=== PATIENT | female | born 1945 | race Two or more races ===

== ENCOUNTER 2020-05-09 08:53 | Outpatient (REF) | payer MEDICARE, OTHER, SELFPAY ==
--- NOTE | 2020-05-09 | US_ITS ---
EXAMINATION: US RENAL WITH DOPPLER CLINICAL INFORMATION: CKD with hypertension COMPARISON: None TECHNIQUE: Routine Grayscale imaging of kidneys was performed. In addition, retroperitoneal Doppler of the kidneys and abdominal aorta was performed. FINDINGS: RIGHT KIDNEY: The right kidney measures 10.0 cm x 4.5 x 4.3 cm. There is normal cortical thickness. No echogenic stones, cysts or hydronephrosis seen. There is likely an extrarenal right kidney pelvis. LEFT KIDNEY: The left kidney measures 9.5 x 4.1 x 5.0 cm. A small nondistended pelvis is seen. There is normal cortical thickness. No echogenic stones or hydronephrosis. RIGHT RENAL DOPPLER: The proximal renal artery measures 113 cm/second, mid segment measures 75 cm/second and distal segment measures 1.8 cm/second. The resistive index average is 0.74. Renal aortic ratio (RAR ) cannot be calculated as the peak systolic velocity in the aorta is 134 cm/s above the prescribed value 100 cm/s. LEFT RENAL DOPPLER: The proximal left renal artery velocity measures 135 cm/s, mid segment measures 124 cm/s and distal segment velocity measures 175 cm/s. Average resistive index measures 0.72 and is within normal limits. Renal aortic ratio (RAR ) cannot be calculated. Elevated mid abdominal aortic velocity measuring 134 cm/s. US/US renal doppler IMPRESSION: 1. Normal renal ultrasound. 2. Normal bilateral renal artery velocities and resistive index on Doppler exam. There is no suggestion for renal artery stenosis. 3. There is elevated peak systolic velocity, mid abdominal aorta, measuring 134 cm/s.
== END 2020-05-09 08:54 | disposition home or self-care (01) ==
LOC: HO.US 08:53
PROVIDERS: PCP Family Medicine; Visit Provider Internal Medicine Nephrology
DX: I12.9 Hypertensive chronic kidney disease with stage 1 through stage 4 chronic kidney disease, or unspecified chronic kidney disease (principal); N18.9 Chronic kidney disease, unspecified
CPT/HCPCS: 93975

== ENCOUNTER 2020-06-19 10:26 | Outpatient (REF) | payer MEDICARE, OTHER, SELFPAY ==
[2020-06-19 13:49] LABS: MANUAL DIFF FLAG NO
[2020-06-19 13:56] LABS: Basophils Percent Auto 0.3 % (0-2); Eosinophils Absolute Auto 0.2 X10*3/uL (0.0-0.4); Eosinophils Percent Auto 3.3 % (0-4); Hematocrit 33.1 % (37-47); Imm Gran Abs Auto 0.01 X10*3/uL (0.00-0.03); Imm Gran Pct Auto 0.2 % (0.0-0.4); Lymphocytes Absolute Auto 1.8 X10*3/uL (1.2-4.9); Mean Corpuscular HGB Conc 33.2 g/dl (31.0-35.0); Mean Corpuscular Hemoglobin 30.6 pg (27.0-33.0); Mean Corpuscular Volume 91.9 fL (80-98); Mean Platelet Volume 10.5 fL (9.4-12.3); Monocytes Absolute Auto 0.5 X10*3/uL (0.1-1.2); Monocytes Percent Auto 8.3 % (2-11); Neutrophils Absolute Auto 3.3 X10*3/uL (2.0-8.3); Neutrophils Percent Auto 56.9 % (45-73); Platelet Count 118 X10*3/uL (160-400); Red Cell Distribution Width 12.1 % (11.0-16.0); White Blood Count 5.8 X10*3/uL (4.8-10.8)
[2020-06-19 14:28] LABS: Alanine Aminotransferase 13 U/L (0-31); Albumin Level 4.3 g/dL (3.5-5.0); Alkaline Phosphatase 54 U/L (39-117); Anion Gap 12 (12-20); Aspartate Amino Transferase 22 U/L (5-31); Bilirubin Total 0.5 mg/dL (0.0-1.0); Blood Urea Nitrogen 31 mg/dL (9-16); Calcium 9.5 mg/dL (8.4-10.2); Carbon Dioxide 28 mmol/L (22-29); Chloride 105 mmol/L (96-108); Estimated Glomerular Filt Rate 32; Glucose Random 96 mg/dL (60-115); Potassium 4.6 mmol/l (3.3-5.1); Sodium 140 mmol/L (135-145); Total Protein 6.7 g/dL (6.5-8.0)
== END 2020-06-19 10:27 | disposition home or self-care (01) ==
LOC: HO.WFDLDS 10:26
PROVIDERS: PCP Family Medicine; Visit Provider Family Medicine
DX: D64.9 Anemia, unspecified (principal); N18.9 Chronic kidney disease, unspecified; E78.5 Hyperlipidemia, unspecified
CPT/HCPCS: 36415; 80053; 85025

== ENCOUNTER 2020-09-11 11:29 | Outpatient (REF) | payer MEDICARE, OTHER, SELFPAY ==
[2020-09-11 13:30] LABS: MANUAL DIFF FLAG NO
[2020-09-11 13:32] LABS: Basophils Percent Auto 0.5 % (0-2); Eosinophils Absolute Auto 0.2 X10*3/uL (0.0-0.4); Eosinophils Percent Auto 3.3 % (0-4); Hematocrit 33.4 % (37-47); Imm Gran Abs Auto 0.02 X10*3/uL (0.00-0.03); Imm Gran Pct Auto 0.3 % (0.0-0.4); Lymphocytes Absolute Auto 2.4 X10*3/uL (1.2-4.9); Lymphocytes Percent Auto 39.3 % (20-40); Mean Corpuscular HGB Conc 32.9 g/dl (31.0-35.0); Mean Corpuscular Hemoglobin 30.3 pg (27.0-33.0); Monocytes Absolute Auto 0.5 X10*3/uL (0.1-1.2); Monocytes Percent Auto 8.5 % (2-11); Neutrophils Absolute Auto 2.9 X10*3/uL (2.0-8.3); Neutrophils Percent Auto 48.1 % (45-73); Platelet Count 133 X10*3/uL (160-400); Red Blood Count 3.63 X10*6/uL (4.20-5.50); Red Cell Distribution Width 12.2 % (11.0-16.0)
[2020-09-11 13:43] LABS: Glucose Urine UA NEG (NEG); Leukocyte Esterase Urine TRACE (NEG); Nitrite Urine NEG (NEG); Specific Gravity - Urine 1.025 (1.005-1.025); UACC Culture Trigger YES; Urine Blood NEG (NEG); Urine Ketones NEG (NEG); Urine Protein NEG (NEG-TRACE)
[2020-09-11 13:45] LABS: Appearance Urine CLEAR; Color Urine YELLOW
[2020-09-11 13:49] LABS: Renal w Reflex-LAB USE ONLY Order Verified
[2020-09-11 13:57] LABS: Bacteria Urine TRACE /LPF; RBC Urine 0-2 /HPF (0); Squamous Epithelial Cell Urine TRACE /LPF; UACC CULT YES
[2020-09-11 14:12] LABS: Anion Gap 13 (12-20); Blood Urea Nitrogen 35 mg/dL (9-16); Calcium 9.7 mg/dL (8.4-10.2); Carbon Dioxide 28 mmol/L (22-29); Chloride 105 mmol/L (96-108); Estimated Glomerular Filt Rate 28; Phosphorus 3.7 mg/dL (2.7-4.5); Potassium 4.6 mmol/L (3.3-5.1); Sodium 141 mmol/L (135-145)
[2020-09-11 14:31] LABS: Creatinine Urine 166.34 mg/dL; Microalbum/Creatinine Ratio Ur 6.6 ug/mg cr
[2020-09-11 14:38] LABS: Vitamin D 25-OH Total 89.8 ng/mL (>30)
[2020-09-11 14:55] LABS: Renal w Reflex Lab Use Only Order verified
[2020-09-12 13:36] LABS: IgA 99 mg/dL (70-320); IgG 907 mg/dL (600-1540); IgM 28 mg/dL (50-300)
[2020-09-12 16:27] LABS: Calcium (PTHI) 10.2 mg/dL (8.6-10.4); PTHI 24 pg/mL (14-64)
== END 2020-09-11 11:30 | disposition home or self-care (01) ==
LOC: HO.WFDLDS 11:29
PROVIDERS: Visit Provider Internal Medicine Nephrology
DX: N18.9 Chronic kidney disease, unspecified (principal)
CPT/HCPCS: 36415; 80051; 81001; 82043; 82306; 82310; 82565; 82784; 83970; 84100; 84520; 85025; 86334; 87086

== ENCOUNTER 2021-01-02 11:23 | Outpatient (REF) | payer MEDICARE, OTHER, SELFPAY ==
[2021-01-02 14:40] LABS: Anion Gap 11 (12-20); Blood Urea Nitrogen 31 mg/dL (9-16); Calcium 9.7 mg/dL (8.4-10.2); Carbon Dioxide 28 mmol/L (22-29); Chloride 107 mmol/L (96-108); Estimated Glomerular Filt Rate 34; Potassium 4.2 mmol/L (3.3-5.1); Sodium 142 mmol/L (135-145)
[2021-01-02 14:46] LABS: Renal w Reflex Lab Use Only Order verified
== END 2021-01-02 11:24 | disposition home or self-care (01) ==
LOC: HO.WFDLDS 11:23
PROVIDERS: PCP Family Medicine; Visit Provider Internal Medicine Nephrology
DX: I12.9 Hypertensive chronic kidney disease with stage 1 through stage 4 chronic kidney disease, or unspecified chronic kidney disease (principal); N18.31 Chronic kidney disease, stage 3a
CPT/HCPCS: 36415; 80051; 82310; 82565; 84520

== ENCOUNTER 2021-01-16 09:21 | Outpatient (REF) | payer MEDICARE, OTHER, SELFPAY ==
[2021-01-16 11:08] LABS: Estimated Average Glucose 111 mg/dL; Hemoglobin A1c % 5.5 %
[2021-01-16 11:39] LABS: Alanine Aminotransferase 9 U/L (0-31); Albumin Level 4.4 g/dL (3.5-5.0); Alkaline Phosphatase 65 U/L (39-117); Anion Gap 12 (12-20); Aspartate Amino Transferase 19 U/L (5-31); Bilirubin Total 0.9 mg/dL (0.0-1.0); Blood Urea Nitrogen 31 mg/dL (9-16); Calcium 9.9 mg/dL (8.4-10.2); Carbon Dioxide 26 mmol/L (22-29); Chloride 107 mmol/L (96-108); Cholesterol 132 mg/dL; Estimated Glomerular Filt Rate 33; Glucose Fasting 102 mg/dL (60-99); HDL Cholesterol 70 mg/dL; LDL Cholesterol Calculated 53 mg/dl; Potassium 4.3 mmol/L (3.3-5.1); Sodium 141 mmol/L (135-145); Total Protein 6.7 g/dL (6.5-8.0); Triglycerides 46 mg/dL
== END 2021-01-16 09:22 | disposition home or self-care (01) ==
LOC: HO.WFDLDS 09:21
PROVIDERS: PCP Family Medicine; Visit Provider Family Medicine
DX: Z00.00 Encounter for general adult medical examination without abnormal findings (principal); E78.5 Hyperlipidemia, unspecified; R73.01 Impaired fasting glucose; N18.9 Chronic kidney disease, unspecified
CPT/HCPCS: 36415; 80053; 80061; 83036

== ENCOUNTER 2021-05-06 11:37 | Outpatient (REF) | payer MEDICARE, OTHER, SELFPAY ==
[2021-05-06 14:32] LABS: Anion Gap 13 (12-20); Blood Urea Nitrogen 28 mg/dL (9-16); Calcium 9.7 mg/dL (8.4-10.2); Carbon Dioxide 28 mmol/L (22-29); Chloride 104 mmol/L (96-108); Estimated Glomerular Filt Rate 31; Glucose Random 93 mg/dL (60-115); Phosphorus 3.4 mg/dL (2.7-4.5); Potassium 4.1 mmol/L (3.3-5.1); Sodium 141 mmol/L (135-145)
== END 2021-05-06 11:38 | disposition home or self-care (01) ==
LOC: HO.WFDLDS 11:37
PROVIDERS: PCP Family Medicine; Visit Provider Internal Medicine Nephrology
DX: I12.9 Hypertensive chronic kidney disease with stage 1 through stage 4 chronic kidney disease, or unspecified chronic kidney disease (principal); N18.31 Chronic kidney disease, stage 3a
CPT/HCPCS: 36415; 80051; 82310; 82550; 82565; 82947; 84100; 84520

== ENCOUNTER 2021-09-17 09:41 | Outpatient (REF) | payer MEDICARE, OTHER, SELFPAY ==
[2021-09-17 11:08] LABS: MANUAL DIFF FLAG NO
[2021-09-17 11:39] LABS: Basophils Percent Auto 0.6 % (0-2); Eosinophils Absolute Auto 0.2 X10*3/uL (0.0-0.4); Eosinophils Percent Auto 3.2 % (0-4); Hematocrit 34.2 % (37.0-47.0); Hemoglobin 11.1 g/dl (12.0-16.0); Imm Gran Abs Auto 0.02 X10*3/uL (0.00-0.03); Imm Gran Pct Auto 0.4 % (0.0-0.4); Lymphocytes Absolute Auto 1.6 X10*3/uL (1.2-4.9); Lymphocytes Percent Auto 29.5 % (20-40); Mean Corpuscular HGB Conc 32.5 g/dl (31.0-35.0); Mean Corpuscular Hemoglobin 29.8 pg (27.0-33.0); Mean Corpuscular Volume 91.9 fL (80.0-98.0); Mean Platelet Volume 10.4 fL (9.4-12.3); Monocytes Absolute Auto 0.5 X10*3/uL (0.1-1.2); Monocytes Percent Auto 8.8 % (2-11); Neutrophils Absolute Auto 3.1 x10*3/uL (2.0-8.3); Neutrophils Percent Auto 57.5 % (45-73); Platelet Count 112 X10*3/uL (160-400); Red Blood Count 3.72 X10*6/uL (4.20-5.50); Red Cell Distribution Width 12.5 % (11.0-16.0); White Blood Count 5.3 X10*3/uL (4.8-10.8)
[2021-09-17 11:58] LABS: Alanine Aminotransferase 20 U/L (0-31); Albumin Level 4.5 g/dL (3.5-5.0); Alkaline Phosphatase 62 U/L (39-117); Anion Gap 13 (12-20); Aspartate Amino Transferase 26 U/L (5-31); Bilirubin Total 0.8 mg/dL (0.0-1.0); Blood Urea Nitrogen 28 mg/dL (9-16); Calcium 10.3 mg/dL (8.4-10.2); Carbon Dioxide 27 mmol/L (22-29); Chloride 107 mmol/L (96-108); Cholesterol 140 mg/dL; Estimated Glomerular Filt Rate 33; Glucose Random 100 mg/dL (60-115); HDL Cholesterol 67 mg/dL; LDL Cholesterol Calculated 62 mg/dl; Potassium 4.3 mmol/L (3.3-5.1); Sodium 143 mmol/L (135-145); Total Protein 6.9 g/dL (6.5-8.0); Triglycerides 55 mg/dL
[2021-09-17 12:10] LABS: Estimated Average Glucose 111 mg/dL; Hemoglobin A1c % 5.5 %
[2021-09-18 16:55] LABS: CRP High Sensitivity 0.7 mg/L
== END 2021-09-17 09:42 | disposition home or self-care (01) ==
LOC: HO.WFDLDS 09:41
PROVIDERS: Visit Provider Family Medicine
DX: Z00.00 Encounter for general adult medical examination without abnormal findings (principal); R73.01 Impaired fasting glucose; N18.9 Chronic kidney disease, unspecified; D64.9 Anemia, unspecified; I25.10 Atherosclerotic heart disease of native coronary artery without angina pectoris
CPT/HCPCS: 36415; 80053; 80061; 83036; 84443; 85025; 86141

== ENCOUNTER 2021-12-17 11:21 | Outpatient (REF) | payer MEDICARE, OTHER, SELFPAY ==
[2021-12-17 13:31] LABS: Anion Gap 12 (12-20); Blood Urea Nitrogen 32 mg/dL (9-16); Calcium 9.2 mg/dL (8.4-10.2); Carbon Dioxide 24 mmol/L (22-29); Chloride 107 mmol/L (96-108); Estimated Glomerular Filt Rate 32; Potassium 4.3 mmol/L (3.3-5.1); Sodium 139 mmol/L (135-145)
[2021-12-17 13:40] LABS: Renal w Reflex Lab Use Only Order verified
== END 2021-12-17 11:22 | disposition home or self-care (01) ==
LOC: HO.WFDLDS 11:21
PROVIDERS: Visit Provider Internal Medicine Nephrology
DX: I12.9 Hypertensive chronic kidney disease with stage 1 through stage 4 chronic kidney disease, or unspecified chronic kidney disease (principal); N18.31 Chronic kidney disease, stage 3a
CPT/HCPCS: 36415; 80051; 82310; 82565; 84520

== ENCOUNTER 2022-01-21 11:10 | Outpatient (REF) | payer MEDICARE, OTHER, SELFPAY ==
[2022-01-21 14:45] LABS: Alanine Aminotransferase 15 U/L (0-31); Albumin Level 4.4 g/dL (3.5-5.0); Alkaline Phosphatase 75 U/L (39-117); Anion Gap 10 (12-20); Aspartate Amino Transferase 20 U/L (5-31); Bilirubin Total 0.7 mg/dL (0.0-1.0); Blood Urea Nitrogen 28 mg/dL (9-16); Calcium 9.7 mg/dL (8.4-10.2); Carbon Dioxide 26 mmol/L (22-29); Chloride 108 mmol/L (96-108); Estimated Glomerular Filt Rate 33; Glucose Random 97 mg/dL (60-115); Potassium 4.3 mmol/L (3.3-5.1); Sodium 140 mmol/L (135-145); Total Protein 6.6 g/dL (6.5-8.0)
== END 2022-01-21 11:11 | disposition home or self-care (01) ==
LOC: HO.WFDLDS 11:10
PROVIDERS: Visit Provider Family Medicine
DX: N18.9 Chronic kidney disease, unspecified (principal)
CPT/HCPCS: 36415; 80053

== ENCOUNTER 2022-07-17 09:17 | Outpatient (REF) | payer MEDICARE, OTHER, SELFPAY ==
[2022-07-17 12:16] LABS: Anion Gap 13 (12-20); Blood Urea Nitrogen 34 mg/dL (9-16); Calcium 9.5 mg/dL (8.4-10.2); Carbon Dioxide 25 mmol/L (22-29); Chloride 108 mmol/L (96-108); Estimated Glomerular Filt Rate 31; Glucose Random 91 mg/dL (60-115); Potassium 4.2 mmol/L (3.3-5.1); Sodium 142 mmol/L (135-145)
[2022-07-17 12:20] LABS: Creatinine Urine 95.14 mg/dL; Microalbum/Creatinine Ratio Ur 19.9 ug/mg cr
== END 2022-07-17 09:18 | disposition home or self-care (01) ==
LOC: HO.WFDLDS 09:17
PROVIDERS: Visit Provider Family Medicine
DX: Z00.00 Encounter for general adult medical examination without abnormal findings (principal); I12.9 Hypertensive chronic kidney disease with stage 1 through stage 4 chronic kidney disease, or unspecified chronic kidney disease; N18.9 Chronic kidney disease, unspecified
CPT/HCPCS: 36415; 80048; 82043

== ENCOUNTER 2022-08-28 08:57 | Outpatient (REF) | payer MEDICARE, OTHER, SELFPAY ==
[2022-08-28 11:28] LABS: MANUAL DIFF FLAG NO
[2022-08-28 11:51] LABS: Appearance Urine Clear; Color Urine Yellow; Glucose Urine UA Negative (Negative); Leukocyte Esterase Urine Moderate (2+) (Negative); Nitrite Urine Negative (Negative); Specific Gravity - Urine 1.015 (1.005-1.025); UMIC TRIGGER UA YES; Urine Blood Negative (Negative); Urine Ketones Negative (Negative); Urine Protein Negative (Neg-Trace)
[2022-08-28 11:53] LABS: Basophils Percent Auto 0.6 % (0-2); Eosinophils Absolute Auto 0.2 X10*3/uL (0.0-0.4); Imm Gran Abs Auto 0.01 X10*3/uL (0.00-0.03); Imm Gran Pct Auto 0.2 % (0.0-0.4); Red Cell Distribution Width 12.3 % (11.0-16.0)
[2022-08-28 11:58] LABS: Bacteria Urine None Seen (None Seen); Hyaline Casts Urine 0-2 /LPF (0-2); RBC Urine 0-2 /HPF (0-2); Squamous Epithelial Cell Urine 0-2 /HPF (0-2)
[2022-08-28 12:20] LABS: Alanine Aminotransferase 14 U/L (0-31); Albumin Level 4.2 g/dL (3.5-5.0); Alkaline Phosphatase 56 U/L (39-117); Anion Gap 10 (12-20); Aspartate Amino Transferase 23 U/L (5-31); Bilirubin Total 1.2 mg/dL (0.0-1.0); Blood Urea Nitrogen 37 mg/dL (9-16); Calcium 9.3 mg/dL (8.4-10.2); Carbon Dioxide 26 mmol/L (22-29); Chloride 108 mmol/L (96-108); Cholesterol 133 mg/dL; Eosinophils Percent Auto 3.8 % (0-4); Estimated Glomerular Filt Rate 31; Glucose Fasting 94 mg/dL (60-99); HDL Cholesterol 61 mg/dL; Hematocrit 32.6 % (37.0-47.0); Hemoglobin 10.7 g/dl (12.0-16.0); LDL Cholesterol Calculated 60 mg/dl; Lymphocytes Absolute Auto 1.8 X10*3/uL (1.2-4.9); Lymphocytes Percent Auto 36.8 % (20-40); Mean Corpuscular HGB Conc 32.8 g/dl (31.0-35.0); Mean Corpuscular Hemoglobin 30.2 pg (27.0-33.0); Mean Corpuscular Volume 92.1 fL (80.0-98.0); Mean Platelet Volume 9.7 fL (9.4-12.3); Monocytes Absolute Auto 0.4 X10*3/uL (0.1-1.2); Monocytes Percent Auto 8.6 % (2-11); Neutrophils Absolute Auto 2.5 x10*3/uL (2.0-8.3); Potassium 4.2 mmol/L (3.3-5.1); Red Blood Count 3.54 X10*6/uL (4.20-5.50); Sodium 140 mmol/L (135-145); Total Protein 6.2 g/dL (6.5-8.0); Triglycerides 62 mg/dL
[2022-08-28 12:21] LABS: Platelet Count 123 X10*3/uL (160-400)
[2022-08-28 12:44] LABS: TSH reflex Free T4 1.36 uIU/mL (0.32-4.0); Vitamin D 25-OH Total 54.8 ng/mL (>30)
[2022-08-28 12:55] LABS: Creatinine Urine 78.02 mg/dL; Microalbum/Creatinine Ratio Ur 11.5 ug/mg cr
== END 2022-08-28 08:58 | disposition home or self-care (01) ==
LOC: HO.WFDLDS 08:57
PROVIDERS: Absent Provider Internal Medicine Cardiovascular Disease; Visit Provider Family Medicine
DX: Z00.00 Encounter for general adult medical examination without abnormal findings (principal); E55.9 Vitamin D deficiency, unspecified; I10 Essential (primary) hypertension
CPT/HCPCS: 36415; 80053; 80061; 81001; 82043; 82306; 84443; 85025

== ENCOUNTER 2022-10-06 11:39 | Outpatient (REF) | payer MEDICARE, OTHER, SELFPAY ==
--- NOTE | ~2022-10-06 | XR_ITS ---
EXAMINATION: XR CHEST 2 VIEWS CLINICAL INFORMATION: Circulatory system signs and symptoms. COMPARISON: None. TECHNIQUE: Frontal and lateral views of the chest were obtained. FINDINGS: The heart, great vessels, pulmonary vasculature and mediastinum are normal. The lungs show no focal infiltrate, effusion or pneumothorax. There is no acute osseous abnormality. There is mild thoracolumbar spondylosis. XR/XR chest 2V IMPRESSION: No active cardiopulmonary disease.
== END 2022-10-06 11:40 | disposition home or self-care (01) ==
LOC: HO.XRAY 11:39
PROVIDERS: PCP Family Medicine; Visit Provider Family Medicine
DX: R09.89 Other specified symptoms and signs involving the circulatory and respiratory systems (principal); Z87.891 Personal history of nicotine dependence
CPT/HCPCS: 71046

== ENCOUNTER 2022-12-23 11:04 | Outpatient (REF) | payer MEDICARE, OTHER, SELFPAY ==
[2022-12-23 13:46] LABS: MANUAL DIFF FLAG NO
[2022-12-23 13:51] LABS: Basophils Percent Auto 0.6 % (0-2); Eosinophils Absolute Auto 0.2 X10*3/uL (0.0-0.4); Eosinophils Percent Auto 4.1 % (0-4); Hematocrit 33.5 % (37.0-47.0); Imm Gran Abs Auto 0.02 X10*3/uL (0.00-0.03); Imm Gran Pct Auto 0.4 % (0.0-0.4); Lymphocytes Absolute Auto 1.8 X10*3/uL (1.2-4.9); Lymphocytes Percent Auto 33.1 % (20-40); Mean Corpuscular HGB Conc 32.8 g/dl (31.0-35.0); Mean Corpuscular Hemoglobin 31.1 pg (27.0-33.0); Mean Corpuscular Volume 94.6 fL (80.0-98.0); Mean Platelet Volume 10.4 fL (9.4-12.3); Monocytes Absolute Auto 0.5 X10*3/uL (0.1-1.2); Neutrophils Absolute Auto 2.8 x10*3/uL (2.0-8.3); Neutrophils Percent Auto 51.8 % (45-73); Platelet Count 122 X10*3/uL (160-400); Red Blood Count 3.54 X10*6/uL (4.20-5.50); Red Cell Distribution Width 12.4 % (11.0-16.0); White Blood Count 5.4 X10*3/uL (4.8-10.8)
[2022-12-23 14:25] LABS: Anion Gap 13 (12-20); Blood Urea Nitrogen 33 mg/dL (9-16); Calcium 10.1 mg/dL (8.4-10.2); Carbon Dioxide 26 mmol/L (22-29); Chloride 107 mmol/L (96-108); Estimated Glomerular Filt Rate 27; Iron 99 mcg/dL (30-160); Percent Iron Saturation 43 % (15-50); Phosphorus 3.4 mg/dL (2.7-4.5); Potassium 4.4 mmol/L (3.3-5.1); Sodium 142 mmol/L (135-145); Total Iron Binding Capacity 228 mcg/dL (228-428); Unsaturated Iron Binding 129 ug/dL
[2022-12-23 14:32] LABS: Ferritin 242 ng/mL (10-250)
[2022-12-28 11:43] LABS: Prot Elec - Albumin 4.3 g/dL (3.8-4.8); Prot Elec - Alpha1 0.3 g/dL (0.2-0.3); Prot Elec - Alpha2 0.6 g/dL (0.5-0.9); Prot Elec - Beta 1 0.4 g/dL (0.4-0.6); Prot Elec - Beta 2 0.2 g/dL (0.2-0.5); Prot Elec - Gamma 0.8 g/dL (0.8-1.7); Prot Elec - Total Protein 6.6 g/dL (6.1-8.1)
== END 2022-12-23 11:05 | disposition home or self-care (01) ==
LOC: HO.WFDLDS 11:04
PROVIDERS: Absent Provider Internal Medicine Nephrology; Visit Provider Family Medicine
DX: I12.9 Hypertensive chronic kidney disease with stage 1 through stage 4 chronic kidney disease, or unspecified chronic kidney disease (principal); N18.31 Chronic kidney disease, stage 3a; D63.1 Anemia in chronic kidney disease
CPT/HCPCS: 36415; 80051; 82310; 82565; 82728; 83540; 84100; 84165; 84520; 85025

== ENCOUNTER 2023-03-31 11:53 | Outpatient (REF) | payer MEDICARE, OTHER, SELFPAY ==
[2023-03-31 14:42] LABS: MANUAL DIFF FLAG NO
[2023-03-31 15:04] LABS: Basophils Percent Auto 0.6 % (0-2); Eosinophils Absolute Auto 0.2 X10*3/uL (0.0-0.4); Eosinophils Percent Auto 4.4 % (0-4); Imm Gran Abs Auto 0.02 X10*3/uL (0.00-0.03); Imm Gran Pct Auto 0.4 % (0.0-0.4); Immature Retic Fraction 10.2 % (3.0-15.9); Lymphocytes Absolute Auto 1.9 X10*3/uL (1.2-4.9); Lymphocytes Percent Auto 34.4 % (20-40); Mean Corpuscular HGB Conc 32.4 g/dl (31.0-35.0); Mean Corpuscular Hemoglobin 30.9 pg (27.0-33.0); Mean Corpuscular Volume 95.5 fL (80.0-98.0); Mean Platelet Volume 10.3 fL (9.4-12.3); Monocytes Absolute Auto 0.5 X10*3/uL (0.1-1.2); Neutrophils Absolute Auto 2.8 x10*3/uL (2.0-8.3); Neutrophils Percent Auto 51.2 % (45-73); Platelet Count 120 X10*3/uL (160-400); Red Blood Count 3.56 X10*6/uL (4.20-5.50); Red Cell Distribution Width 12.4 % (11.0-16.0); Retic HGB Equivalent 34.6 pg (30.0-35.0); Reticulocyte Percent 1.6 % (0.5-1.8); Reticulocytes Absolute 0.058 X10*6/uL (0.026-0.095); White Blood Count 5.4 X10*3/uL (4.8-10.8)
[2023-03-31 15:19] LABS: Alanine Aminotransferase 16 U/L (0-31); Albumin Level 4.4 g/dL (3.5-5.0); Alkaline Phosphatase 75 U/L (39-117); Anion Gap 13 (12-20); Aspartate Amino Transferase 23 U/L (5-31); Bilirubin Total 0.6 mg/dL (0.0-1.0); Blood Urea Nitrogen 38 mg/dL (9-16); Calcium 9.7 mg/dL (8.4-10.2); Carbon Dioxide 25 mmol/L (22-29); Chloride 108 mmol/L (96-108); Estimated Glomerular Filt Rate 26; Glucose Random 129 mg/dL (60-115); Iron 101 mcg/dL (30-160); Percent Iron Saturation 43 % (15-50); Potassium 4.6 mmol/L (3.3-5.1); Sodium 141 mmol/L (135-145); Total Iron Binding Capacity 234 mcg/dL (228-428); Total Protein 6.9 g/dL (6.5-8.0); Unsaturated Iron Binding 133 ug/dL
[2023-03-31 15:24] LABS: Anion Gap 13 (12-20); Blood Urea Nitrogen 38 mg/dL (9-16); Calcium 9.7 mg/dL (8.4-10.2); Carbon Dioxide 26 mmol/L (22-29); Chloride 108 mmol/L (96-108); Estimated Glomerular Filt Rate 25; Potassium 4.5 mmol/L (3.3-5.1); Sodium 142 mmol/L (135-145)
[2023-03-31 16:01] LABS: Folate 12.1 ng/mL (> or = 4.0); Vitamin B12 729 pg/mL (200-900)
== END 2023-03-31 11:54 | disposition home or self-care (01) ==
LOC: HO.WFDLDS 11:53
PROVIDERS: Internal Medicine Nephrology; Visit Provider Family Medicine
DX: Z00.00 Encounter for general adult medical examination without abnormal findings (principal); I12.9 Hypertensive chronic kidney disease with stage 1 through stage 4 chronic kidney disease, or unspecified chronic kidney disease; N18.31 Chronic kidney disease, stage 3a; D64.9 Anemia, unspecified; E53.8 Deficiency of other specified B group vitamins
CPT/HCPCS: 36415; 80051; 80053; 82310; 82565; 82607; 82746; 83540; 84520; 85025; 85045

== ENCOUNTER 2023-04-15 13:24 | Outpatient (AMB) | payer MEDICARE, OTHER, SELFPAY ==
[2023-04-15 13:37] VITALS: BP 124/64; PULSE 57; RESP 13; TEMP 36.6; O2SAT 97
--- NOTE | 2023-04-15 13:37 | A.OFFPC_ITS ---
Vital Signs 04/15/23 13:37 Height 4 ft 11 in Weight 148 lb 8 oz BMI 30.0 BP 124/64 Blood Pressure Location Rt brachial Position Sitting Respiration 13 Pulse 57 Pulse Source Pulse Oximeter Temp 97.8 F Temp Source Temporal Artery Scan Pulse Oximetry (%) 97 Oxygen Delivery Method Room Air Intake Visit Reasons: Hypertension, CRF, anemia Intake Note: Patient states that she just went and seen her mold filler and drainer and would like to go over how that visit went. Patient would also like to go over her labs. Patient would like a script for triamcinolone acetonide 0.1%. 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 Labs were drawn 03/31/23. Reviewed labs with pt. Ongoing mild anemia. Creatinine level worsened from 1.84 to 1.91. Blood pressure today 124/64. She is on lisinopril 2.5mg, metoprolol 25mg b.i.d. HPI Comments History of Present Illness Details Documentation assistance for Dhiraj Cano MD, was provided by Bijan Mosqueda,?Mixer Crane Operator on 04/15/2023 2:02 PM EST. Mandujano, Dr. Cano, have read, observed, and verified documentation.? [facility] Medical History No pertinent past medical history Surgical History History of breast surgery History of surgical procedure on mouth Social History Housing: House Alcohol intake: current Alcohol type: wine Patient Tobacco Use Status: Former Tobacco user e-Cigarette/Vaping Use: Never Used Second Hand Smoke Exposure: No service: No Current occupational status: retired Current occupational exposures/hazards: No Cognitive needs: No Hearing needs: No Vision needs: No (glasses) Questionnaire Thrive Questionnaire Date Thrive assessed: 07/24/22 ANABELL-7 AMB Questionnaire ANABELL-7 Date ANABELL - 7 assessed: 07/24/22 Source: Developed by Drs. South Johnson, Alisson Fuentes, Yannick Morfin and colleagues, with an educational jef from [employer]. Review of Systems Const Denies chills, Denies fatigue, Denies fever(s), Denies headache(s) and Denies weakness ENT Denies dizziness and Denies headache(s) Card Denies chest pain, Denies lightheadedness, Denies dyspnea and Denies other (Palpitations) Resp Denies cough, Denies dyspnea, Denies wheezing and Denies other ( shortness of breath) Musc Denies numbness and Denies tingling Neuro Denies dizziness, Denies headache(s), Denies numbness, Denies tingling, Denies paresthesias and Denies weakness Psych Denies anxiety and Denies depression Endo Denies fatigue Aller/Immun Denies wheezing Physical exam (Primary Care) Vital Signs: Last Vital Signs Temp 97.8 F 04/15/23 13:37 Pulse 57 04/15/23 13:37 Resp 13 04/15/23 13:37 BP 124/64 04/15/23 13:37 Pulse Ox 97 04/15/23 13:37 Oxygen Delivery Method Room Air 04/15/23 13:37 BMI result Body Mass Index 30.0 Tobacco/Smoking Status: Tobacco use Status Tobacco use date assessed 01/01/23 04/15/23 13:48 Patient Tobacco Use Status Former Tobacco user 04/15/23 13:48 e-Cigarette/Vaping Use Never Used 04/15/23 13:48 Thrive Assessment: Date of Thrive Assessment Date Thrive assessed 07/24/22 04/15/23 13:48 Const General: no acute distress and well developed Nutritional Appearance: well nourished Orientation/consciousness: patient oriented x3 HENMT Head: Yes normocephalic and Yes atraumatic Eyes General: appearance normal, both eyes and all related structures Pupils: Equal, round and reactive pupils present EOM: EOMs intact bilaterally Resp Effort & Inspection: normal respiratory effort Auscultation: clear to auscultation bilaterally Cardio Rate: regular rate Rhythm: regular rhythm Heart sounds: S1 normal heart sound present, S2 normal heart sound present, no gallops, no murmurs and no rubs Neuro General: patient oriented x3 and gait normal Cranial nerves: Yes Equal, round and reactive pupils present Psych Affect: normal affect Assessment and Plan Assessment & Plan (1) Essential hypertension: Code(s): I10 - Essential (primary) hypertension Plan: Blood?pressure?remains?well?controlled.??Goal?is?less?than?130/80 Continue?current?medication?regimen (2) Chronic renal failure: Code(s): N18.9 - Chronic kidney disease, unspecified Plan: Renal?function?has?decreased?slightly?again She?is?on?a?very?small?amount?of?ISMA inhibitor?and?her?mold filler and drainer?is?considering?holding?this Possible?renal?artery?stenosis Follow-up?with?nephrology.??May?need?a?repeat?renal?ultrasound?with?Dopplers Hydrate?well Control?blood?pressure,?blood?sugar,?lipids?and?avoid?NSAIDs. Still?following?closely (3) Mild anemia: Code(s): D64.9 - Anemia, unspecified Plan: Her?iron?and?B12?levels?are?normal.??Sh e?has?a?normocytic?anemia?which?is?quite?stable. This?is?likely?secondary?to?chronic?renal?failure.??She?may?need?Procrit?in?the? future?but?currently?I?do?not?think?that?is?the?case Will?continue?to?monitor?this Medications: Changed From triamcinolone acetonide 0.1% topical To triamcinolone acetonide 0.1% 1 appl topical BID 60 grams 3RF 14 days From gabapentin 1-2 tabs orally daily PRN; 7 days 14 caps 0RF Cluster headache To gabapentin 1-2 tabs orally daily PRN; 30 days 60 caps 2RF Cluster headache Coding Level of Care Code Est Pt Level 4 (87927) Diagnoses Essential hypertension I10 Chronic renal failure N18.9 Mild anemia D64.9
== END 2023-04-15 14:42 | disposition home or self-care (01) ==
PROVIDERS: PCP Family Medicine; Visit Provider Family Medicine
DX: I12.9 Hypertensive chronic kidney disease with stage 1 through stage 4 chronic kidney disease, or unspecified chronic kidney disease (principal); N18.9 Chronic kidney disease, unspecified; D64.9 Anemia, unspecified
CPT/HCPCS: 99214

== ENCOUNTER 2023-06-04 12:08 | Outpatient (REF) | payer MEDICARE, OTHER, SELFPAY ==
[2023-06-04 14:29] LABS: Immature Retic Fraction 8.3 % (3.0-15.9); Retic HGB Equivalent 34.1 pg (30.0-35.0); Reticulocyte Percent 1.6 % (0.5-1.8); Reticulocytes Absolute 0.052 X10*6/uL (0.026-0.095)
== END 2023-06-04 12:09 | disposition home or self-care (01) ==
LOC: HO.WFDLDS 12:08
PROVIDERS: Visit Provider Family Medicine
DX: D64.9 Anemia, unspecified (principal)
CPT/HCPCS: 36415; 85045

== ENCOUNTER 2023-06-08 11:38 | Outpatient (REF) | payer MEDICARE, OTHER, SELFPAY ==
[2023-06-08 15:14] LABS: Anion Gap 13 (12-20); Blood Urea Nitrogen 37 mg/dL (9-16); Carbon Dioxide 24 mmol/L (22-29); Chloride 108 mmol/L (96-108); Estimated Glomerular Filt Rate 27; Potassium 3.8 mmol/L (3.3-5.1); Sodium 141 mmol/L (135-145)
== END 2023-06-08 11:39 | disposition home or self-care (01) ==
LOC: HO.WFDLDS 11:38
PROVIDERS: Visit Provider Internal Medicine Nephrology
DX: N18.30 Chronic kidney disease, stage 3 unspecified (principal)
CPT/HCPCS: 36415; 80051; 82565; 84520

== ENCOUNTER 2023-06-11 11:32 | Outpatient (AMB) | payer MEDICARE, OTHER, SELFPAY ==
[2023-06-11 11:59] VITALS: BP 130/60; PULSE 51; O2SAT 97; BMI 29.6
--- NOTE | 2023-06-11 11:59 | HO.NEPHOV_ITS ---
HPI HPI Comments History of Present Illness Details I had the privilege of seeing eileen in follow-up of her chronic kidney disease. She is known to have coronary artery disease, TIA and hypertension but no congestive heart failure. Recently her serum creatinine has gone up and her ISMA-inhibitor dosage has been adjusted. Her renal ultrasound in the past showed a renal cyst per never had Doppler of renal arteries. She has history of trace blood in the urine and has seen Urology. She denies chest pain, shortness of breath, proximal nocturnal dyspnea, orthopnea, pedal edema or urinary symptoms. She avoids nonsteroidal anti-inflammatory medications. She tries to maintain good hydration and consume a low-sodium diet. There were no new active complaints at the time of this office visit. [facility] Medical History No pertinent past medical history Surgical History History of breast surgery History of surgical procedure on mouth Social History Housing: House Alcohol intake: current Alcohol type: wine Patient Tobacco Use Status: Former Tobacco user e-Cigarette/Vaping Use: Never Used Second Hand Smoke Exposure: No service: No Current occupational status: retired Current occupational exposures/hazards: No Cognitive needs: No Hearing needs: No Vision needs: No (glasses) Vital Signs 06/11/23 11:59 Height 4 ft 11 in Weight 146 lb 8 oz BMI 29.6 BP 130/60 Blood Pressure Location Lt brachial Position Sitting Pulse 51 Pulse Source Pulse Oximeter Pulse Oximetry (%) 97 Oxygen Delivery Method Room Air Physical Exam Vital Signs: Last Vital Signs Pulse 51 06/11/23 11:59 BP 130/60 06/11/23 11:59 Pulse Ox 97 06/11/23 11:59 Oxygen Delivery Method Room Air 06/11/23 11:59 BMI result Body Mass Index 29.6 Const General: comfortable and no acute distress Orientation/consciousness: patient oriented x3 HEENT Head: Yes normocephalic Mouth: Normal oral and palatal mucosa present Eyes EOM: EOMs intact bilaterally Neck Neck: Yes supple Resp Auscultation: clear to auscultation bilaterally Cardio Jugular venous distension: no JVD Rate: regular rate GI Palpation (GI): Soft to palpation Auscultation: normal bowel sounds General: Yes no CVA tenderness Back/Spine/Pelvis Back: no CVA tenderness Skin General skin exam: no rashes or lesions noted Neuro General: patient oriented x3 and moves all extremities Extrem General: Yes no pedal edema Assessment & Plan Assessment & Plan (1) CKD (chronic kidney disease) stage 3, GFR 30-59 ml/min: Code(s): N18.30 - Chronic kidney disease, stage 3 unspecified Qualifiers: Chronic kidney disease stage 3 subtype: stage 3a (GFR 45-59) Qualified Code(s): N18.31 - Chronic kidney disease, stage 3a (2) Essential hypertension: Code(s): I10 - Essential (primary) hypertension Plan Eileen has chronic kidney disease due to vascular disease. 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 Her serum creatinine is marginally better this time after adjustment of her ISMA- inhibitor dosage. Her blood pressure is at goal. She has no orthostasis. She avoids nonsteroidal anti-inflammatories. Her urine output is good. I did not make any medication changes at this visit. I shall consider ordering Doppler of her renal arteries in the future along with renal ultrasound by which we can follow up her cyst as well as the major renal blood vessels. She may be a candidate for FarPymetricsga a Jardiance in the future. Follow-up lab data ordered. Answered all questions. Follow-up given Orders: Orders Ferritin 06/11/23 N18.30 - Chronic kidney disease, stage 3 unspecified Electrolytes 06/11/23 N18.30 - Chronic kidney disease, stage 3 unspecified Creatinine 06/11/23 N18.30 - Chronic kidney disease, stage 3 unspecified Calcium 06/11/23 N18.30 - Chronic kidney disease, stage 3 unspecified IRON PROFILE 06/11/23 N18.30 - Chronic kidney disease, stage 3 unspecified Blood Urea Nitrogen 06/11/23 N18.30 - Chronic kidney disease, stage 3 unspecified Complete Blood Count Auto Diff 06/11/23 N18.30 - Chronic kidney disease, stage 3 unspecified Coding Level of Care Code Est Pt Level 4 (16474) Diagnoses Stage 3a chronic kidney disease N18.31 Chronic kidney disease stage 3 subtype: stage 3a (GFR 45-59) Essential hypertension I10 Results Reviewed Nephrology Results: Hgb 11.0 g/dl (12.0-16.0) L 03/31/23 WBC 5.4 X10*3/uL (4.8-10.8) 03/31/23 Plt Count 120 X10*3/uL (160-400) L 03/31/23 Sodium 141 mmol/L (135-145) 06/08/23 Potassium 3.8 mmol/L (3.3-5.1) 06/08/23 Chloride 108 mmol/L (96-108) 06/08/23 Carbon Dioxide 24 mmol/L (22-29) 06/08/23 BUN 37 mg/dL (9-16) H 06/08/23 Creatinine 1.80 mg/dL (0.5-1.4) H 06/08/23 Calcium 9.7 mg/dL (8.4-10.2) 03/31/23 Phosphorus 3.4 mg/dL (2.7-4.5) 12/23/22 Urine Protein TNP 09/25/22 Urine Creatinine 78.02 mg/dL 08/28/22
== END 2023-06-11 12:41 | disposition home or self-care (01) ==
PROVIDERS: PCP Family Medicine; Visit Provider Internal Medicine Nephrology
DX: N18.31 Chronic kidney disease, stage 3a (principal); I10 Essential (primary) hypertension
CPT/HCPCS: 99214

== ENCOUNTER → 2023-06-11 11:32 | Outpatient (BNVA) | payer MEDICARE, OTHER, SELFPAY | PROVIDERS: PCP Family Medicine; Visit Provider Internal Medicine Nephrology | DX: I12.9 Hypertensive chronic kidney disease with stage 1 through stage 4 chronic kidney disease, or unspecified chronic kidney disease (principal); N18.31 Chronic kidney disease, stage 3a | CPT/HCPCS: 99212 ==

== ENCOUNTER 2023-07-22 12:47 | Outpatient (AMB) | payer MEDICARE, OTHER, SELFPAY ==
--- NOTE | 2023-07-22 12:57 | A.OFFPC_ITS ---
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 Accompanied by: Self / Same As Patient Allergies No Known Allergies Allergy (Verified 07/22/23 13:04) Medication List - Last Reconciled 07/22/23 by Dhiraj Caon MD aspirin 81 mg PO DAILY 90 days atorvastatin 40 mg PO DAILY calcium carbonate (Calcium) 600 mg PO BID coenzyme Q10 100 mg PO DAILY gabapentin 100 mg PO BID PRN 30 days lisinopril 1.25 mg (1/2 x 2.5 mg) PO DAILY 90 days magnesium oxide 400 mg PO DAILY metoprolol tartrate 25 mg PO BID niacin ER 750 mg PO BID omega 4-nul-yzh-fish oil 1,200 (144-216) mg (Fish Oil) 1 cap PO BID polyethylene glycol 3350 (Miralax) 17 grams PO .every other day PRN triamcinolone acetonide 0.1% 1 appl topical BID 14 days Tobacco use date assessed: 07/22/23 Fall risk assessment: No Falls in past year Last assessed Fall Risk: 07/22/23 Dental Screening Dental Screen Date: 07/22/23 Did you have a dental visit in the last 12 months?: Yes Did you have a dental problem in the last 6 months where you did not have access to dental care?: No Was dental information given to patient?: Patient has dentist HPI f/u htn, chronic renal failure & chronic condit. HPI Details 78 y/o female presents to f/u hypertensi on, CRF and chronic conditions. Blood pressure today 126/68. She is on lisinopril 1.25mg, metoprolol 25mg b.i.d. Has seen nephrology. [facility] Medical History No pertinent past medical history Surgical History History of breast surgery History of surgical procedure on mouth Social History Housing: House Alcohol intake: current Alcohol type: wine Patient Tobacco Use Status: Former Tobacco user e-Cigarette/Vaping Use: Never Used Second Hand Smoke Exposure: No service: No Current occupational status: retired Current occupational exposures/hazards: No Cognitive needs: No Hearing needs: No Vision needs: No (glasses) Questionnaire Thrive Questionnaire Date Thrive assessed: 07/24/22 ANABELL-7 AMB Questionnaire ANABELL-7 Date ANABELL - 7 assessed: 07/24/22 Source: Developed by Drs. South Johnson, Alisson Fuentes, Yannick Morfin and colleagues, with an educational jef from [employer]. Review of Systems Const Denies chills, Denies fatigue, Denies fever(s), Denies headache(s) and Denies weakness ENT Denies dizziness and Denies headache(s) Card Denies dyspnea Resp Denies cough, Denies dyspnea, Denies wheezing and Denies other (shortness of breath) Musc Denies numbness and Denies tingling Neuro Denies dizziness, Denies headache(s), Denies numbness, Denies tingling and Denies weakness Psych Denies anxiety and Denies depression Endo Denies fatigue Aller/Immun Denies wheezing Physical exam (Primary Care) Vital Signs: Last Vital Signs Temp 97.8 F 07/22/23 12:59 Pulse 62 07/22/23 12:59 Resp 13 07/22/23 12:59 BP 126/68 07/22/23 12:59 Pulse Ox 99 07/22/23 12:59 Oxygen Delivery Method Room Air 07/22/23 12:59 BMI result Body Mass Index 29.0 Tobacco/Smoking Status: Tobacco use Status Tobacco use date assessed 07/22/23 07/22/23 13:06 Patient Tobacco Use Status Former Tobacco user 07/22/23 13:06 e-Cigarette/Vaping Use Never Used 07/22/23 12:59 Thrive Assessment: Date of Thrive Assessment Date Thrive assessed 07/24/22 07/22/23 12:59 Const General: well developed; No acute distress Nutritional Appearance: well nourished Orientation/consciousness: patient oriented x3 HENMT Head: Yes normocephalic and Yes atraumatic Eyes General: appearance normal, both eyes and all related structures Pupils: Equal, round and reactive pupils present EOM: EOMs intact bilaterally Resp Effort & Inspection: normal respiratory effort Neuro General: patient oriented x3 and gait normal Cranial nerves: Yes Equal, round and reactive pupils present Psych Affect: normal affect Assessment and Plan Assessment & Plan (1) Essential hypertension: Code(s): I10 - Essential (primary) hypertension Plan: Blood?pressure?is?well?controlled.??Goal?is?less?than?130/80 Continue?current?medication?regimen She?is?on?a?small?dose?of?lisinopril. Creatinine?level?has?improved?slightly. (2) Chronic renal failure: Code(s): N18.9 - Chronic kidney disease, unspecified Plan: As?above,?renal?function?is?steady?and?creatinine?level?has?improved?slightly?si nce?decreasing?lisinopril Follow-up?with?nephrology. Nephrology?considering?Jardiance Orders: Orders Comprehensive [place]. Panel Fast Today Z00.00 - Encounter for general adult medical examination without abnormal findings Complete Blood Count Auto Diff Today Z00.00 - Encounter for general adult medical examination without abnormal findings Microalbumin, Random (w Creat) Today I10 - Essential (primary) hypertension UA and rflx microscopic Today Z00.00 - Encounter for general adult medical examination without abnormal findings Lipid Panel Today Z00.00 - Encounter for general adult medical examination without abnormal findings Prostate Specific Antigen Scr Today Z12.5 - Encounter for screening for malignant neoplasm of prostate TSH reflex Free T4 Today Z00.00 - Encounter for general adult medical examination without abnormal findings Coding Level of Care Code Est Pt Level 3 (65327) Diagnoses Essential hypertension I10 Chronic renal failure N18.9
[2023-07-22 12:59] VITALS: BP 126/68; PULSE 62; RESP 13; TEMP 36.6; O2SAT 99; BMI 29.0
== END 2023-07-22 17:00 ==
PROVIDERS: PCP Family Medicine; Visit Provider Family Medicine
DX: I12.9 Hypertensive chronic kidney disease with stage 1 through stage 4 chronic kidney disease, or unspecified chronic kidney disease (principal); N18.9 Chronic kidney disease, unspecified
CPT/HCPCS: 99213

== ENCOUNTER 2023-09-08 11:51 | Outpatient (REF) | payer MEDICARE, OTHER, SELFPAY ==
[2023-09-08 14:26] LABS: MANUAL DIFF FLAG NO
[2023-09-08 14:33] LABS: Basophils Percent Auto 0.5 % (0-2); Eosinophils Absolute Auto 0.4 X10*3/uL (0.0-0.4); Eosinophils Percent Auto 6.1 % (0-4); Hematocrit 32.4 % (37.0-47.0); Hemoglobin 10.8 g/dl (12.0-16.0); Imm Gran Abs Auto 0.02 X10*3/uL (0.00-0.03); Imm Gran Pct Auto 0.3 % (0.0-0.4); Lymphocytes Absolute Auto 1.8 X10*3/uL (1.2-4.9); Mean Corpuscular HGB Conc 33.3 g/dl (31.0-35.0); Mean Corpuscular Hemoglobin 30.7 pg (27.0-33.0); Mean Platelet Volume 10.1 fL (9.4-12.3); Monocytes Absolute Auto 0.6 X10*3/uL (0.1-1.2); Monocytes Percent Auto 10.2 % (2-11); Neutrophils Absolute Auto 3.1 x10*3/uL (2.0-8.3); Neutrophils Percent Auto 51.9 % (45-73); Red Blood Count 3.52 X10*6/uL (4.20-5.50); Red Cell Distribution Width 12.1 % (11.0-16.0); White Blood Count 5.9 X10*3/uL (4.8-10.8)
[2023-09-08 14:34] LABS: Platelet Count 85 X10*3/uL (160-400)
[2023-09-08 15:14] LABS: Anion Gap 9 (12-20); Blood Urea Nitrogen 31 mg/dL (9-16); Calcium 9.8 mg/dL (8.4-10.2); Carbon Dioxide 27 mmol/L (22-29); Chloride 108 mmol/L (96-108); Estimated Glomerular Filt Rate 27; Iron 80 mcg/dL (30-160); Percent Iron Saturation 38 % (15-50); Potassium 4.2 mmol/L (3.3-5.1); Sodium 140 mmol/L (135-145); Total Iron Binding Capacity 212 mcg/dL (228-428); Unsaturated Iron Binding 132 ug/dL
[2023-09-08 15:23] LABS: Ferritin 327 ng/mL (10-250)
== END 2023-09-08 11:52 | disposition home or self-care (01) ==
LOC: HO.WFDLDS 11:51
PROVIDERS: Visit Provider Internal Medicine Nephrology
DX: N18.30 Chronic kidney disease, stage 3 unspecified (principal)
CPT/HCPCS: 36415; 80051; 82310; 82565; 82728; 83540; 84520; 85025

== ENCOUNTER 2023-09-15 12:04 | Outpatient (AMB) | payer MEDICARE, OTHER, SELFPAY ==
[2023-09-15 11:56] VITALS: BP 110/60; PULSE 72; O2SAT 96; BMI 30.1
--- NOTE | 2023-09-15 11:56 | HO.NEPHOV ---
HPI HPI Comments History of Present Illness Details I had the privilege of seeing eileen in follow-up of her chronic kidney disease. She is known to have coronary artery disease, TIA and hypertension but no congestive heart failure. Recently her serum creatinine has gone up and her ISMA-inhibitor dosage has been adjusted. Her renal ultrasound in the past showed a renal cyst per never had Doppler of renal arteries. She has history of trace blood in the urine and has seen Urology. She denies chest pain, shortness of breath, proximal nocturnal dyspnea, orthopnea, pedal edema or urinary symptoms. She avoids nonsteroidal anti-inflammatory medications. She tries to maintain good hydration and consume a low-sodium diet. There were no new active complaints at the time of this office visit. [facility] Medical History No pertinent past medical history Surgical History History of breast surgery History of surgical procedure on mouth Social History Housing: House Alcohol intake: current Alcohol type: wine Patient Tobacco Use Status: Former Tobacco user e-Cigarette/Vaping Use: Never Used Second Hand Smoke Exposure: No service: No Current occupational status: retired Current occupational exposures/hazards: No Cognitive needs: No Hearing needs: No Vision needs: No (glasses) Vital Signs 09/15/23 11:56 Height 4 ft 11 in Weight 149 lb 2 oz BMI 30.1 BP 110/60 Blood Pressure Location Rt brachial Position Sitting Pulse 72 Pulse Source Pulse Oximeter Pulse Oximetry (%) 96 Oxygen Delivery Method Room Air Physical Exam Vital Signs: Last Vital Signs Pulse 72 09/15/23 11:56 BP 110/60 09/15/23 11:56 Pulse Ox 96 09/15/23 11:56 Oxygen Delivery Method Room Air 09/15/23 11:56 BMI result Body Mass Index 30.1 Const General: comfortable and no acute distress Orientation/consciousness: patient oriented x3 HEENT Head: Yes normocephalic Mouth: Normal oral and palatal mucosa present Eyes EOM: EOMs intact bilaterally Neck Neck: Yes supple Resp Auscultation: clear to auscultation bilaterally Cardio Jugular venous distension: no JVD Rate: regular rate GI Palpation (GI): Soft to palpation Auscultation: normal bowel sounds General: Yes no CVA tenderness Back/Spine/Pelvis Back: no CVA tenderness Skin General skin exam: no rashes or lesions noted Neuro General: patient oriented x3 and moves all extremities Extrem General: Yes no pedal edema Assessment & Plan Assessment & Plan (1) CKD (chronic kidney disease) stage 3, GFR 30-59 ml/min: Code(s): N18.30 - Chronic kidney disease, stage 3 unspecified Qualifiers: Chronic kidney disease stage 3 subtype: stage 3a (GFR 45-59) Qualified Code(s): N18.31 - Chronic kidney disease, stage 3a (2) Essential hypertension: Code(s): I10 - Essential (primary) hypertension Plan Eileen has chronic kidney disease due to vascular disease. 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 Her serum creatinine is marginally better this time after adjustment of her ISMA-inhibitor dosage. Her blood pressure is at goal. She has no orthostasis. She avoids nonsteroidal anti-inflammatories. Her urine output is good. I did not make any medication changes at this visit. I shall consider ordering Doppler of her renal arteries in the future along with renal ultrasound by which we can follow up her cyst as well as the major renal blood vessels. She may be a candidate for Farxiga a Jardiance in the future. Follow-up lab data ordered. Answered all questions. Follow-up given Orders: Orders Creatinine Today I10 - Essential (primary) hypertension, N18.30 - Chronic kidney disease, stage 3 unspecified Electrolytes Today I10 - Essential (primary) hypertension, N18.30 - Chronic kidney disease, stage 3 unspecified Blood Urea Nitrogen 3 Months I10 - Essential (primary) hypertension, N18.30 - Chronic kidney disease, stage 3 unspecified Protein Creatinine Ratio, Ur Today I10 - Essential (primary) hypertension, N18.30 - Chronic kidney disease, stage 3 unspecified Blood Urea Nitrogen Today I10 - Essential (primary) hypertension, N18.30 - Chronic kidney disease, stage 3 unspecified Creatinine 3 Months I10 - Essential (primary) hypertension, N18.30 - Chronic kidney disease, stage 3 unspecified Electrolytes 3 Months I10 - Essential (primary) hypertension, N18.30 - Chronic kidney disease, stage 3 unspecified Coding Level of Care Code Est Pt Level 4 (99969) Diagnoses Stage 3a chronic kidney disease N18.31 Chronic kidney disease stage 3 subtype: stage 3a (GFR 45-59) Essential hypertension I10 Results Reviewed Nephrology Results: Hgb 10.8 g/dl (12.0-16.0) L 09/08/23 WBC 5.9 X10*3/uL (4.8-10.8) 09/08/23 Plt Count 85 X10*3/uL (160-400) L 09/08/23 Sodium 140 mmol/L (135-145) 09/08/23 Potassium 4.2 mmol/L (3.3-5.1) 09/08/23 Chloride 108 mmol/L (96-108) 09/08/23 Carbon Dioxide 27 mmol/L (22-29) 09/08/23 BUN 31 mg/dL (9-16) H 09/08/23 Creatinine 1.78 mg/dL (0.5-1.4) H 09/08/23 Calcium 9.8 mg/dL (8.4-10.2) 09/08/23 Phosphorus 3.4 mg/dL (2.7-4.5) 12/23/22 Urine Protein TNP 09/25/22 Urine Creatinine 78.02 mg/dL 08/28/22
== END 2023-09-15 12:43 | disposition home or self-care (01) ==
LOC: HO.HKA 12:04
PROVIDERS: PCP Family Medicine; Visit Provider Internal Medicine Nephrology
DX: N18.31 Chronic kidney disease, stage 3a (principal); I10 Essential (primary) hypertension
CPT/HCPCS: 99214

== ENCOUNTER → 2023-09-15 12:04 | Outpatient (BNVA) | payer MEDICARE, OTHER, SELFPAY | PROVIDERS: PCP Family Medicine; Visit Provider Internal Medicine Nephrology | DX: I12.9 Hypertensive chronic kidney disease with stage 1 through stage 4 chronic kidney disease, or unspecified chronic kidney disease (principal); I25.10 Atherosclerotic heart disease of native coronary artery without angina pectoris; N18.31 Chronic kidney disease, stage 3a; Z86.73 Personal history of transient ischemic attack (TIA), and cerebral infarction without residual deficits | CPT/HCPCS: 99212 ==

== ENCOUNTER 2023-10-01 08:53 | Outpatient (REF) | payer MEDICARE, OTHER, SELFPAY ==
[2023-10-01 11:32] LABS: Appearance Urine Clear; Color Urine Yellow; Glucose Urine UA Negative (Negative); Leukocyte Esterase Urine Trace (Negative); Nitrite Urine Negative (Negative); PH 6.5 (5.0-9.0); Specific Gravity - Urine 1.015 (1.005-1.025); UMIC TRIGGER UA YES; Urine Blood Negative (Negative); Urine Ketones Negative (Negative); Urine Protein Negative (Neg-Trace)
[2023-10-01 11:38] LABS: Bacteria Urine None Seen (None Seen); Hyaline Casts Urine 0-2 /LPF (0-2); RBC Urine 0-2 /HPF (0-2); Squamous Epithelial Cell Urine 0-2 /HPF (0-2); WBC Urine 0-5 /HPF (0-5)
[2023-10-01 11:42] LABS: MANUAL DIFF FLAG NO
[2023-10-01 11:47] LABS: Basophils Percent Auto 0.7 % (0-2); Eosinophils Absolute Auto 0.3 X10*3/uL (0.0-0.4); Eosinophils Percent Auto 4.9 % (0-4); Hemoglobin 11.3 g/dl (12.0-16.0); Imm Gran Abs Auto 0.02 X10*3/uL (0.00-0.03); Imm Gran Pct Auto 0.3 % (0.0-0.4); Lymphocytes Absolute Auto 1.9 X10*3/uL (1.2-4.9); Lymphocytes Percent Auto 31.2 % (20-40); Mean Corpuscular HGB Conc 33.2 g/dl (31.0-35.0); Mean Corpuscular Volume 93.4 fL (80.0-98.0); Monocytes Absolute Auto 0.4 X10*3/uL (0.1-1.2); Monocytes Percent Auto 7.4 % (2-11); Neutrophils Absolute Auto 3.3 x10*3/uL (2.0-8.3); Neutrophils Percent Auto 55.5 % (45-73); Red Blood Count 3.64 X10*6/uL (4.20-5.50); Red Cell Distribution Width 12.5 % (11.0-16.0)
[2023-10-01 12:05] LABS: Alanine Aminotransferase 13 U/L (0-31); Albumin Level 4.2 g/dL (3.5-5.0); Alkaline Phosphatase 76 U/L (39-117); Anion Gap 11 (12-20); Aspartate Amino Transferase 21 U/L (5-31); Bilirubin Total 0.6 mg/dL (0.0-1.0); Blood Urea Nitrogen 29 mg/dL (9-16); Calcium 9.5 mg/dL (8.4-10.2); Carbon Dioxide 25 mmol/L (22-29); Chloride 109 mmol/L (96-108); Cholesterol 128 mg/dL (<200); Estimated Glomerular Filt Rate 26; Glucose Fasting 99 mg/dL (60-99); HDL Cholesterol 58 mg/dL (>40); LDL Cholesterol Calculated 56 mg/dL (<100); Potassium 4.3 mmol/L (3.3-5.1); Sodium 141 mmol/L (135-145); Total Protein 6.7 g/dL (6.5-8.0); Triglycerides 71 mg/dL (<150)
[2023-10-01 12:20] LABS: TSH reflex Free T4 1.39 uIU/mL (0.32-4.0)
[2023-10-01 12:44] LABS: Mean Platelet Volume 9.2 fL (9.4-12.3)
[2023-10-01 12:45] LABS: Platelet Count 154 X10*3/uL (160-400)
[2023-10-01 12:56] LABS: Creatinine Urine 100.24 mg/dL; Microalbum/Creatinine Ratio Ur 21.9 ug/mg cr (<30)
== END 2023-10-01 08:54 | disposition home or self-care (01) ==
LOC: HO.WFDLDS 08:53
PROVIDERS: Visit Provider Family Medicine
DX: Z00.00 Encounter for general adult medical examination without abnormal findings (principal); I10 Essential (primary) hypertension
CPT/HCPCS: 36415; 80053; 80061; 81001; 82043; 82570; 84443; 85025

== ENCOUNTER 2023-10-07 12:55 | Outpatient (AMB) | payer MEDICARE, OTHER, SELFPAY ==
[2023-10-07 13:02] VITALS: BP 118/62; PULSE 78; O2SAT 95; BMI 30.1
--- NOTE | 2023-10-07 13:02 | MHC.PC.OV ---
Vital Signs 10/07/23 13:02 Height 4 ft 11 in Weight 149 lb 2 oz BMI 30.1 BP 118/62 Blood Pressure Location Lt brachial Position Sitting Pulse 78 Pulse Source Pulse Oximeter Pulse Oximetry (%) 95 Oxygen Delivery Method Room Air Intake Visit Reasons: Extended exam with f/u labs and health maint. Intake Note: Patient is here for her physical today. Allergies No Known Allergies Allergy (Verified 10/07/23 13:03) Medication List - Last Reconciled 10/07/23 by Dhiraj Cano MD aspirin 81 mg PO DAILY 90 days atorvastatin 40 mg PO DAILY calcium carbonate (Calcium) 600 mg PO BID coenzyme Q10 100 mg PO DAILY gabapentin 100 mg PO BID PRN 30 days lisinopril 1.25 mg (1/2 x 2.5 mg) PO DAILY 90 days magnesium oxide 400 mg PO DAILY metoprolol tartrate 25 mg PO BID niacin ER 750 mg PO BID omega [id number] oil 1,200 (144-216) mg (Fish Oil) 1 cap PO BID polyethylene glycol 3350 (Miralax) 17 grams PO .every other day PRN triamcinolone acetonide 0.1% 1 appl topical BID 14 days Tobacco use date assessed: 10/07/23 Fall risk assessment: No Falls in past year Last assessed Fall Risk: 10/07/23 Dental Screening Dental Screen Date: 07/22/23 HPI Extended exam with f/u labs and health maint. HPI Details 78 y/o female presents for an extended exam with f/u labs and health maintenance. Labs were drawn 10/01/23. Reviewed labs with pt. Ongoing mild anemia. Triglycerides 71. TC 128. LDL 56. HDL 58. PFSH Medical History No pertinent past medical history Surgical History History of breast surgery History of surgical procedure on mouth Social History Housing: House Alcohol intake: current Alcohol type: wine Patient Tobacco Use Status: Former Tobacco user e-Cigarette/Vaping Use: Never Used Second Hand Smoke Exposure: No service: No Current occupational status: retired Current occupational exposures/hazards: No Cognitive needs: No Hearing needs: No Vision needs: No (glasses) Questionnaire PHQ-9 Over the last 2 weeks, how often have you been bothered by any of the following problems? 1. Little interest or pleasure in doing things: not at all 2. Feeling down, depressed, or hopeless: not at all 3. Trouble falling or staying asleep, or sleeping too much: not at all 4. Feeling tired or having little energy: not at all 5. Poor appetite or overeating: not at all 6. Feeling bad about yourself - or that you are a failure or have let yourself or your family down: not at all 7. Trouble concentrating on things, such as reading the newspaper or watching television: not at all 8. Moving or speaking so slowly that other people could have noticed. Or the opposite - being so fidgety or restless that you have been moving around a lot more than usual: not at all 9. Thoughts that you would be better off or of hurting yourself in some way: not at all Total score: 0 Depression Screening Interpretation: Negative Depression Screening Done: Yes 87354 - PHQ-9 Billing: Yes Source: Developed by Drs. South Johnson, Alisson Fuentes, Yannick Morfin and colleagues, with an educational jef from [employer]. Thrive Questionnaire Date Thrive assessed: 10/07/23 I am a: Patient What is your living situation today?: I have a steady place to live Within the past 12 months, did the food you bought not last and you didn't have the money to get more?: Never true Within the past 12 months, did you worry whether your food would run out before you got money to buy more?: Never true Do you have trouble paying for medicines?: No Do you have trouble getting transportation to medical appointments?: No Do you have trouble paying your heating and electricity bill?: No Do you have trouble taking care of your child, family member or friend?: No Do you have trouble with day-to-day activities such as bathing, preparing meals, shopping, managing finances, etc.?: No Are you currently unemployed and looking for a job?: No Are you interested in more education?: No THRIVE Score: 0 AUDIT C Alcohol Use Questionnaire (AUDIT-C) 1. How often do you have a drink containing alcohol?: Monthly or less 2. How many drinks containing alcohol do you have on a typical day when you are drinking?: 1 or 2 3. How often do you have six or more drinks on one occasion?: Never Total Score: 1 ANABELL-7 AMB Questionnaire ANABELL-7 Date ANABELL - 7 assessed: 10/07/23 Feeling nervous, anxious, or on edge: 0 = Not at all Not being able to stop or control worryin = Not at all Worrying too much about different things: 0 = Not at all Trouble relaxin = Not at all Being so restless that it is hard to sit still: 0 = Not at all Becoming easily annoyed or irritable: 0 = Not at all Feeling afraid as if something awful might happen: 0 = Not at all Total ANABELL-7 score (0-4 normal; 5-9 mild; 10-14 moderate; 15-21 severe): 0 Source: Developed by Drs. South Johnson, Alisson Fuentes, Yannick Morfin and colleagues, with an educational jef from [employer]. ANABELL-7 Assessment Billing ANABELL-7 Assessment Tool: ANABELL-7 Assessment 83179 Review of Systems Const Denies chills, Denies fatigue, Denies fever(s), Denies headache(s) and Denies weakness Eyes Denies change in vision ENT Denies dizziness, Denies headache(s), Denies hearing loss, Denies nasal congestion, Denies sinus pain, Denies sinus pressure and Denies sore throat Card Denies chest pain, Denies lightheadedness, Denies dyspnea and Denies other (palpitations) Resp Denies cough, Denies dyspnea and Denies wheezing GI Denies abdominal pain, Denies melena, Denies hematochezia, Denies change in bowel habits, Denies dyspepsia and Denies nausea Denies hematuria and Denies dysuria Musc Denies abnormal gait, Denies myalgias, Denies arthralgias, Denies numbness and Denies tingling Skin/Breast Denies rash, Denies unusual bruising and Denies wounds Neuro Denies abnormal gait, Denies dizziness, Denies headache(s), Denies memory loss, Denies numbness, Denies Sensory deficit (Neuro), Denies tingling and Denies weakness Psych Denies anxiety, Denies depression and Denies memory loss Endo Denies cold intolerance, Denies fatigue, Denies heat intolerance, Denies polydipsia and Denies polyuria Hero/Lymph Denies easy bleeding and Denies easy bruising Aller/Immun Denies wheezing Physical exam (Primary Care) Vital Signs: Last Vital Signs Pulse 78 10/07/23 13:02 BP 118/62 10/07/23 13:02 Pulse Ox 95 10/07/23 13:02 Oxygen Delivery Method Room Air 10/07/23 13:02 BMI result Body Mass Index 30.1 Tobacco/Smoking Status: Tobacco use Status Tobacco use date assessed 10/07/23 10/07/23 13:03 Patient Tobacco Use Status Former Tobacco user 10/07/23 13:03 e-Cigarette/Vaping Use Never Used 10/07/23 13:03 PHQ-9: PHQ-9 Score PHQ-9: Total score 0 10/07/23 13:19 Depression Screening Interpretation: Negative Thrive Assessment: Date of Thrive Assessment Date Thrive assessed 10/07/23 10/07/23 13:08 Const General: no acute distress, well developed, alert and awake Nutritional Appearance: well nourished Orientation/consciousness: patient oriented x3 HENMT Head: Yes normocephalic and Yes atraumatic Ears: hearing grossly normal bilaterally and TM's normal bilaterally General nose exam: Normal external nose present and Normal nares present Mouth: Normal oral and palatal mucosa present and moist mucous membranes Teeth and gingiva: dentition normal Throat: Yes posterior oropharynx normal Eyes General: appearance normal, both eyes and all related structures Pupils: Equal, round and reactive pupils present and Pupil accommodation reflex normal EOM: EOMs intact bilaterally Neck Neck: Yes normal visual inspection, Yes no lymphadenopathy and Yes trachea midline Thyroid: Thyroid normal Carotids: no bruits Lymphatic: no lymphadenopathy noted Chest Chest palpation & inspection: normal inspection of the chest Resp Effort & Inspection: normal respiratory effort Auscultation: clear to auscultation bilaterally Cardio Rate: regular rate Rhythm: regular rhythm Heart sounds: S1 normal heart sound present, S2 normal heart sound present, no gallops, no murmurs and no rubs Bruits: no abdominal aortic bruits and no carotid bruits GI Palpation (GI): No Abdominal aortic bruit present, Soft to palpation, nontender, No hepatosplenomegaly present and No Rebound tenderness present Auscultation: normal bowel sounds General: Yes no CVA tenderness Back/Spine/Pelvis Back: no CVA tenderness Cervical Spine: cervical ROM normal and No Cervical spine tenderness Thoracic/Lumbar Spine: thoraco-lumbar ROM normal, No pain with thoraco-lumbar ROM, No thoracic spinal tenderness and No lumbar spinal tenderness Skin Lesions: no lesions Rashes: no rashes Trauma: no lacerations or abrasions Wounds: no wounds Nails: normal Neuro General: patient oriented x3 Cranial nerves: Yes Equal, round and reactive pupils present Cognition (Neuro): normal cognition Gait exam (Neuro): Normal gait present Motor exam (neuro): 5/5 motor strength present throughout Sensory Exam: No Sensory deficit (Neuro) Deep tendon reflexes (DTR's): Right patellar reflex intensity grade: 2+ and Left patellar reflex intensity grade: 2+ Extrem General: Yes normal to inspection and No edema Psych Appearance: grossly normal Affect: normal affect Attitude: cooperative Thought process: Normal thought process present Assessment and Plan Assessment & Plan (1) Essential hypertension: Code(s): I10 - Essential (primary) hypertension Plan: Blood?pressure?is?controlled.??Goal?is?less?than?130/80 Continue?current?medication?regimen (2) Chronic renal failure: Code(s): N18.9 - Chronic kidney disease, unspecified Plan: Ongoing?renal?failure Now?followed?by?Nephrology Nephrology?recommends?a?small?dose?of?Jardiance?for?renal?and?cardiac?protection Will?trial?this.??We?discussed?medication?and?if?it?is?too?expensive?for?her?she?will?forego?it (3) CAD (coronary artery disease): Code(s): I25.10 - Atherosclerotic heart disease of [place] coronary artery without angina pectoris Plan: Stable Follow-up?with??Ernestine?as?recommended - she?has?an?upcoming?echocardiogram?and?we?can?follow-up?on?the?results?together (4) Mild anemia: Code(s): D64.9 - Anemia, unspecified Plan: Mild?stable?anemia.??She?has?begun?iron. 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 (9) Adult general medical exam: Code(s): Z00.00 - Encounter for general adult medical examination without abnormal findings Plan: 78-year-old?female?presents?for?extended?exam Orders: Orders Basic Metabolic Panel Today D64.9 - Anemia, unspecified, Z00.00 - Encounter for general adult medical examination without abnormal findings Complete Blood Count Auto Diff Today D69.6 - Thrombocytopenia, unspecified, Z00.00 - Encounter for general adult medical examination without abnormal findings IRON PROFILE Today D64.9 - Anemia, unspecified Medications: New empagliflozin (Jardiance) 10 mg PO QAM 90 days 90 tabs 2RF Coding Level of Care Code Est Pt Level 4 (27142) Diagnoses Essential hypertension I10 Chronic renal failure N18.9 CAD (coronary artery disease) I25.10 Mild anemia D64.9 Breast cancer screening by mammogram Z12.31 Thrombocytopenia D69.6 Screening for osteoporosis Z13.820 Screening for colon cancer Z12.11 Adult general medical exam Z00.00 Additional Codes ANABELL-7 Assessment Billing - ANABELL-7 Assessment Tool: ANABELL-7 Assessment [id number] ([id number])
== END 2023-10-07 14:16 | disposition home or self-care (01) ==
PROVIDERS: PCP Family Medicine; Visit Provider Family Medicine
DX: I12.9 Hypertensive chronic kidney disease with stage 1 through stage 4 chronic kidney disease, or unspecified chronic kidney disease (principal); D69.6 Thrombocytopenia, unspecified; N18.9 Chronic kidney disease, unspecified; I25.10 Atherosclerotic heart disease of native coronary artery without angina pectoris; D64.9 Anemia, unspecified; Z12.31 Encounter for screening mammogram for malignant neoplasm of breast; Z13.820 Encounter for screening for osteoporosis; Z12.11 Encounter for screening for malignant neoplasm of colon
CPT/HCPCS: 99214

== ENCOUNTER 2023-12-08 14:37 | Outpatient (REF) | payer MEDICARE, OTHER, SELFPAY ==
[2023-12-08 18:03] LABS: Appearance Urine Clear; Color Urine Yellow; Glucose Urine UA Negative (Negative); Leukocyte Esterase Urine Small (1+) (Negative); Nitrite Urine Negative (Negative); PH 5.5 (5.0-9.0); Specific Gravity - Urine 1.015 (1.005-1.025); UMIC TRIGGER UA YES; Urine Blood Negative (Negative); Urine Ketones Negative (Negative); Urine Protein Negative (Neg-Trace)
[2023-12-08 18:21] LABS: Bacteria Urine None Seen (None Seen); Hyaline Casts Urine 0-2 /LPF (0-2); RBC Urine 0-2 /HPF (0-2); Squamous Epithelial Cell Urine 0-2 /HPF (0-2); WBC Urine 0-5 /HPF (0-5)
[2023-12-08 18:43] LABS: MANUAL DIFF FLAG NO
[2023-12-08 18:48] LABS: Basophils Percent Auto 0.5 % (0-2); Eosinophils Absolute Auto 0.3 X10*3/uL (0.0-0.4); Eosinophils Percent Auto 4.3 % (0-4); Hematocrit 32.1 % (37.0-47.0); Hemoglobin 10.5 g/dl (12.0-16.0); Imm Gran Abs Auto 0.02 X10*3/uL (0.00-0.03); Imm Gran Pct Auto 0.3 % (0.0-0.4); Lymphocytes Percent Auto 30.8 % (20-40); Mean Corpuscular HGB Conc 32.7 g/dl (31.0-35.0); Mean Corpuscular Hemoglobin 30.7 pg (27.0-33.0); Mean Corpuscular Volume 93.9 fL (80.0-98.0); Mean Platelet Volume 10.6 fL (9.4-12.3); Monocytes Absolute Auto 0.4 X10*3/uL (0.1-1.2); Monocytes Percent Auto 6.3 % (2-11); Neutrophils Absolute Auto 3.8 x10*3/uL (2.0-8.3); Neutrophils Percent Auto 57.8 % (45-73); Platelet Count 106 X10*3/uL (160-400); Red Blood Count 3.42 X10*6/uL (4.20-5.50); Red Cell Distribution Width 12.8 % (11.0-16.0); White Blood Count 6.5 X10*3/uL (4.8-10.8)
[2023-12-08 19:41] LABS: Anion Gap 14 (12-20)
[2023-12-08 19:45] LABS: Blood Urea Nitrogen 36 mg/dL (9-16); Calcium 10.1 mg/dL (8.4-10.2); Carbon Dioxide 23 mmol/L (22-29); Chloride 107 mmol/L (96-108); Estimated Glomerular Filt Rate 25; Glucose Random 130 mg/dL (60-115); Iron 56 mcg/dL (30-160); Percent Iron Saturation 24 % (15-50); Potassium 3.8 mmol/L (3.3-5.1); Sodium 140 mmol/L (135-145); Total Iron Binding Capacity 229 mcg/dL (228-428); Unsaturated Iron Binding 173 ug/dL
[2023-12-08 21:32] LABS: Creatinine Urine 140.44 mg/dL; Protein/Creatinine Ratio, Ur 0.06 (<0.2); Total Protein Urine Random 8 mg/dL (<12)
== END 2023-12-08 14:38 | disposition home or self-care (01) ==
LOC: HO.WFDLDS 14:37
PROVIDERS: Referring Provider Internal Medicine Nephrology; Visit Provider Family Medicine
DX: Z00.00 Encounter for general adult medical examination without abnormal findings (principal); I12.9 Hypertensive chronic kidney disease with stage 1 through stage 4 chronic kidney disease, or unspecified chronic kidney disease; N18.30 Chronic kidney disease, stage 3 unspecified; D69.6 Thrombocytopenia, unspecified; D63.1 Anemia in chronic kidney disease
CPT/HCPCS: 36415; 80048; 81001; 82570; 83540; 84156; 85025

== ENCOUNTER 2023-12-15 13:37 | Outpatient (AMB) | payer MEDICARE, OTHER, SELFPAY ==
--- NOTE | 2023-12-15 13:40 | HO.NEPHOV ---
Vital Signs 12/15/23 13:49 Height 4 ft 11 in Weight 147 lb 4 oz BMI 29.7 BP 116/70 Blood Pressure Location Rt brachial Position Sitting Pulse 57 Pulse Source Pulse Oximeter Pulse Oximetry (%) 95 Oxygen Delivery Method Room Air Intake Visit Reasons: 3 MO FU Attendant Child Activity Required: No Accompanied by: Self / Same As Patient Allergies No Known Allergies Allergy (Verified 12/15/23 13:51) HPI Comments Details: Eileen was seen in follow-up of her chronic kidney disease. She is known to have coronary artery disease, TIA and hypertension but no congestive heart failure. Recently her serum creatinine has gone up and her ISMA-inhibitor dosage has been adjusted. Her renal ultrasound in the past showed a renal cyst per never had Doppler of renal arteries. She has history of trace blood in the urine and has seen Urology. She denies chest pain, shortness of breath, proximal nocturnal dyspnea, orthopnea, pedal edema or urinary symptoms. She avoids nonsteroidal anti-inflammatory medications. She tries to maintain good hydration and consume a low-sodium diet. She is going to have an ECHO next week. There were no new active complaints at the time of this office visit. [facility] Medical History No pertinent past medical history Surgical History History of breast surgery History of surgical procedure on mouth Social History Housing: House Alcohol intake: current Alcohol type: wine Patient Tobacco Use Status: Former Tobacco user e-Cigarette/Vaping Use: Never Used Second Hand Smoke Exposure: No service: No Current occupational status: retired Current occupational exposures/hazards: No Cognitive needs: No Hearing needs: No Vision needs: No (glasses) Physical Exam Vital Signs: Last Vital Signs Pulse 57 12/15/23 13:49 BP 116/70 12/15/23 13:49 Pulse Ox 95 12/15/23 13:49 Oxygen Delivery Method Room Air 12/15/23 13:49 BMI result Body Mass Index 29.7 Const General: comfortable and no acute distress Orientation/consciousness: patient oriented x3 HEENT Head: Yes normocephalic Mouth: Normal oral and palatal mucosa present Eyes EOM: EOMs intact bilaterally Neck Neck: Yes supple Resp Auscultation: clear to auscultation bilaterally Cardio Jugular venous distension: no JVD Rate: regular rate GI Palpation (GI): Soft to palpation Auscultation: normal bowel sounds General: Yes no CVA tenderness Back/Spine/Pelvis Back: no CVA tenderness Skin General skin exam: no rashes or lesions noted Neuro General: patient oriented x3 and moves all extremities Extrem General: Yes no pedal edema Results Reviewed Nephrology Results: Hgb 10.5 g/dl (12.0-16.0) L 12/08/23 WBC 6.5 X10*3/uL (4.8-10.8) 12/08/23 Plt Count 106 X10*3/uL (160-400) L 12/08/23 Sodium 140 mmol/L (135-145) 12/08/23 Potassium 3.8 mmol/L (3.3-5.1) 12/08/23 Chloride 107 mmol/L (96-108) 12/08/23 Carbon Dioxide 23 mmol/L (22-29) 12/08/23 BUN 36 mg/dL (9-16) H 12/08/23 Creatinine 1.91 mg/dL (0.5-1.4) H 12/08/23 Calcium 10.1 mg/dL (8.4-10.2) 12/08/23 Urine Protein Negative mg/dL (Neg-Trace) 12/08/23 Urine Creatinine 140.44 mg/dL 12/08/23 Protein/Creatinin Ratio 0.06 (<0.2) 12/08/23 Assessment & Plan Assessment & Plan (1) CKD (chronic kidney disease) stage 3, GFR 30-59 ml/min: Code(s): N18.30 - Chronic kidney disease, stage 3 unspecified Category: Medical Qualifiers: Chronic kidney disease stage 3 subtype: stage 3a (GFR 45-59) Qualified Code(s): N18.31 - Chronic kidney disease, stage 3a (2) Essential hypertension: Code(s): I10 - Essential (primary) hypertension Category: Medical Plan Eileen has chronic kidney disease due to vascular disease. 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 Her serum creatinine is stable. Her blood pressure is at goal. She has no orthostasis. She avoids nonsteroidal anti-inflammatories. Her urine output is good. I did not make any medication changes at this visit. I shall consider ordering Doppler of her renal arteries in the future along with renal ultrasound by which we can follow up her cyst as well as the major renal blood vessels. We need to do a USS of liver/Spleen and should consider bone marrow testing if her cytopenia persist. Follow-up lab data ordered. Answered all questions. Follow-up given Orders: Orders Creatinine Today I10 - Essential (primary) hypertension, N18.31 - Chronic kidney disease, stage 3a Blood Urea Nitrogen Today I10 - Essential (primary) hypertension, N18.31 - Chronic kidney disease, stage 3a Electrolytes Today I10 - Essential (primary) hypertension, N18.31 - Chronic kidney disease, stage 3a Coding Level of Care Code Est Pt Level 4 (48460) Diagnoses Stage 3a chronic kidney disease N18.31 Chronic kidney disease stage 3 subtype: stage 3a (GFR 45-59) Essential hypertension I10
[2023-12-15 13:49] VITALS: BP 116/70; PULSE 57; O2SAT 95; BMI 29.7
== END 2023-12-15 14:31 | disposition home or self-care (01) ==
PROVIDERS: PCP Family Medicine; Visit Provider Internal Medicine Nephrology
DX: N18.31 Chronic kidney disease, stage 3a (principal); I10 Essential (primary) hypertension
CPT/HCPCS: 99214

== ENCOUNTER → 2023-12-15 13:37 | Outpatient (BNVA) | payer MEDICARE, OTHER, SELFPAY | PROVIDERS: PCP Family Medicine; Visit Provider Internal Medicine Nephrology | DX: I12.9 Hypertensive chronic kidney disease with stage 1 through stage 4 chronic kidney disease, or unspecified chronic kidney disease (principal); N18.31 Chronic kidney disease, stage 3a | CPT/HCPCS: 99212 ==

== ENCOUNTER 2024-01-10 11:30 | Outpatient (REF) | payer MEDICARE, OTHER, SELFPAY ==
[2024-01-10 14:35] LABS: Appearance Urine Clear; Color Urine Yellow; Glucose Urine UA Negative (Negative); Leukocyte Esterase Urine Small (1+) (Negative); Nitrite Urine Negative (Negative); PH 6.5 (5.0-9.0); UMIC TRIGGER UA YES; Urine Blood Negative (Negative); Urine Ketones Negative (Negative); Urine Protein Negative (Neg-Trace)
[2024-01-10 15:09] LABS: Bacteria Urine None Seen (None Seen); Hyaline Casts Urine 0-2 /LPF (0-2); RBC Urine 0-2 /HPF (0-2); Squamous Epithelial Cell Urine 0-2 /HPF (0-2); WBC Urine 0-5 /HPF (0-5)
== END 2024-01-10 11:31 | disposition home or self-care (01) ==
LOC: HO.WFDLDS 11:30
PROVIDERS: Visit Provider Family Medicine
DX: R82.90 Unspecified abnormal findings in urine (principal)
CPT/HCPCS: 81001

== ENCOUNTER 2024-01-12 11:46 | Outpatient (REF) | payer MEDICARE, OTHER, SELFPAY ==
[2024-01-12 13:58] LABS: MANUAL DIFF FLAG NO
[2024-01-12 14:16] LABS: Basophils Percent Auto 0.7 % (0-2); Eosinophils Absolute Auto 0.3 X10*3/uL (0.0-0.4); Eosinophils Percent Auto 4.8 % (0-4); Hematocrit 32.8 % (37.0-47.0); Hemoglobin 10.7 g/dl (12.0-16.0); Imm Gran Abs Auto 0.02 X10*3/uL (0.00-0.03); Imm Gran Pct Auto 0.3 % (0.0-0.4); Lymphocytes Percent Auto 33.1 % (20-40); Mean Corpuscular HGB Conc 32.6 g/dl (31.0-35.0); Mean Corpuscular Hemoglobin 30.7 pg (27.0-33.0); Mean Corpuscular Volume 94.3 fL (80.0-98.0); Mean Platelet Volume 10.4 fL (9.4-12.3); Monocytes Absolute Auto 0.7 X10*3/uL (0.1-1.2); Monocytes Percent Auto 11.1 % (2-11); Neutrophils Absolute Auto 3.1 x10*3/uL (2.0-8.3); Platelet Count 78 X10*3/uL (160-400); Red Blood Count 3.48 X10*6/uL (4.20-5.50); Red Cell Distribution Width 12.4 % (11.0-16.0); White Blood Count 6.1 X10*3/uL (4.8-10.8)
[2024-01-12 14:35] LABS: Alanine Aminotransferase 14 U/L (0-31); Albumin Level 4.4 g/dL (3.5-5.0); Alkaline Phosphatase 71 U/L (39-117); Anion Gap 13 (12-20); Aspartate Amino Transferase 21 U/L (5-31); Bilirubin Total 0.7 mg/dL (0.0-1.0); Blood Urea Nitrogen 30 mg/dL (9-16); Calcium 9.8 mg/dL (8.4-10.2); Carbon Dioxide 26 mmol/L (22-29); Chloride 108 mmol/L (96-108); Estimated Glomerular Filt Rate 25; Glucose Random 103 mg/dL (60-115); Potassium 4.6 mmol/L (3.3-5.1); Sodium 142 mmol/L (135-145); Total Protein 6.8 g/dL (6.5-8.0)
== END 2024-01-12 11:47 | disposition home or self-care (01) ==
LOC: HO.WFDLDS 11:46
PROVIDERS: Visit Provider Family Medicine
DX: Z00.00 Encounter for general adult medical examination without abnormal findings (principal); N18.31 Chronic kidney disease, stage 3a
CPT/HCPCS: 36415; 80053; 85025

== ENCOUNTER 2024-01-13 12:53 | Outpatient (AMB) | payer MEDICARE, OTHER, SELFPAY ==
--- NOTE | 2024-01-13 13:04 | MHC.PC.OV ---
Vital Signs 01/13/24 13:10 Weight 147 lb 8 oz BP 120/54 L Blood Pressure Location Rt brachial Position Sitting Respiration 16 Pulse 48 L Pulse Source Pulse Oximeter Temp 97.8 F Temp Source Temporal Artery Scan Pulse Oximetry (%) 96 Oxygen Delivery Method Room Air Intake Visit Reasons: F/U hypertension labs Intake Note: patient here for follow up. [employer] Required: No Is last menstrual period known: No Post menopausal: No Patient : No Allergies No Known Allergies Allergy (Verified 01/13/24 13:08) Tobacco use date assessed: 10/07/23 Fall risk assessment: 1 Fall in past year Last assessed Fall Risk: 01/13/24 Dental Screening Dental Screen Date: 07/22/23 HPI F/U hypertension labs HPI Details 78 y/o female presents to f/u hypertension, labs. Labs were drawn 01/12/24. Reviewed labs with pt. Creatinine level worsened from 1.91 to 1.95. Ongoing mild anemia. Blood pressure today 120/54, 48p. She is on lisinopril 1.25mg daily. Cardiac function normal per most recent echocardiogram. [facility] Medical History No pertinent past medical history Surgical History History of breast surgery History of surgical procedure on mouth Social History Housing: House Alcohol intake: current Alcohol type: wine Patient Tobacco Use Status: Former Tobacco user e-Cigarette/Vaping Use: Never Used Second Hand Smoke Exposure: No service: No Current occupational status: retired Current occupational exposures/hazards: No Cognitive needs: No Hearing needs: No Vision needs: No (glasses) Questionnaire Thrive Questionnaire Date Thrive assessed: 10/07/23 ANABELL-7 AMB Questionnaire ANABELL-7 Date ANABELL - 7 assessed: 10/07/23 Source: Developed by Drs. South Johnson, Alisson Fuentes, Yannick Morfin and colleagues, with an educational jef from [employer]. Review of Systems Const Denies chills, Denies fatigue, Denies fever(s), Denies headache(s) and Denies weakness ENT Denies dizziness and Denies headache(s) Card Denies dyspnea Resp Denies cough, Denies dyspnea, Denies wheezing and Denies other (shortness of breath) Musc Denies numbness and Denies tingling Neuro Denies dizziness, Denies headache(s), Denies numbness, Denies tingling and Denies weakness Psych Denies anxiety and Denies depression Endo Denies fatigue Aller/Immun Denies wheezing Physical exam (Primary Care) Vital Signs: Last Vital Signs Temp 97.8 F 01/13/24 13:10 Pulse 48 L 01/13/24 13:10 Resp 16 01/13/24 13:10 BP 120/54 L 01/13/24 13:10 Pulse Ox 96 01/13/24 13:10 Oxygen Delivery Method Room Air 01/13/24 13:10 Tobacco/Smoking Status: Tobacco use Status Tobacco use date assessed 10/07/23 01/13/24 13:06 Patient Tobacco Use Status Former Tobacco user 01/13/24 13:06 e-Cigarette/Vaping Use Never Used 01/13/24 13:06 Thrive Assessment: Date of Thrive Assessment Date Thrive assessed 10/07/23 01/13/24 13:06 Const General: well developed; No acute distress Nutritional Appearance: well nourished Orientation/consciousness: patient oriented x3 HENMT Head: Yes normocephalic and Yes atraumatic Eyes General: appearance normal, both eyes and all related structures Pupils: Equal, round and reactive pupils present EOM: EOMs intact bilaterally Resp Effort & Inspection: normal respiratory effort Neuro General: patient oriented x3 and gait normal Cranial nerves: Yes Equal, round and reactive pupils present Psych Affect: normal affect Assessment and Plan Assessment & Plan (1) Essential hypertension: Code(s): I10 - Essential (primary) hypertension Plan: Blood?pressure?is?controlled.??Goal?is?less?than?130/80 No?change?to?her?blood?pressure?regimen Hydrate?well (2) Chronic renal failure: Code(s): N18.9 - Chronic kidney disease, unspecified Plan: Ongoing?renal?failure?and?creatinine?level?has?increased Followed?by?Nephrology Given?she?has?had?significant?hypertension?and?renal?failure,?question?renal?artery?stenosis. Echocardiogram?shows?normal?ejection?fraction Will?check?renal?Dopplers (3) CAD (coronary artery disease): Code(s): I25.10 - Atherosclerotic heart disease of [place] coronary artery without angina pectoris Plan: Followed?by?Dr. Sinha History?of?[place]?and?stent Recent?echo?showed?normal?ejection?fraction Mild?diastolic?dysfunction Continue?to?follow-up?with?Cardiology?as?recommended (4) Anemia: Code(s): D64.9 - Anemia, unspecified Plan: Chronic?anemia?and?thrombocytopenia. Nephrology has?question?regarding?MDS White?count?is?steady?and?normal?however. Will?check?ultrasound?abdomen Will?refer?to?Hematology-Oncology (5) Thrombocytopenia: Code(s): D69.6 - Thrombocytopenia, unspecified Plan: Significant?decrease?in?platelets As?above,?checking?abdominal?ultrasound?to?rule?out?HSM Referred?to?Hematology-Oncology Orders: Orders US renal doppler Today I10 - Essential (primary) hypertension, N18.31 - Chronic kidney disease, stage 3a US renal BI Today I10 - Essential (primary) hypertension, N18.31 - Chronic kidney disease, stage 3a Complete Blood Count Auto Diff Today D69.6 - Thrombocytopenia, unspecified, Z00.00 - Encounter for general adult medical examination without abnormal findings US abdomen complete Today D64.9 - Anemia, unspecified, D69.6 - Thrombocytopenia, unspecified Basic Metabolic Panel Today D69.6 - Thrombocytopenia, unspecified, Z00.00 - Encounter for general adult medical examination without abnormal findings Referrals Hematology & Oncology Referral D64.9 - Anemia, unspecified, D69.6 - Thrombocytopenia, unspecified Coding Level of Care Code Est Pt Level 4 (95421) Diagnoses Essential hypertension I10 Chronic renal failure N18.9 CAD (coronary artery disease) I25.10 Anemia D64.9 Thrombocytopenia D69.6
[2024-01-13 13:10] VITALS: BP 120/54; PULSE 48; RESP 16; TEMP 36.6; O2SAT 96
== END 2024-01-13 14:30 | disposition home or self-care (01) ==
PROVIDERS: PCP Family Medicine; Visit Provider Family Medicine
DX: I12.9 Hypertensive chronic kidney disease with stage 1 through stage 4 chronic kidney disease, or unspecified chronic kidney disease (principal); N18.9 Chronic kidney disease, unspecified; I25.10 Atherosclerotic heart disease of native coronary artery without angina pectoris; D64.9 Anemia, unspecified; D69.6 Thrombocytopenia, unspecified
CPT/HCPCS: 99214

== ENCOUNTER 2024-01-28 08:36 | Outpatient (REF) | payer MEDICARE, OTHER, SELFPAY ==
--- NOTE | ~2024-01-28 | US_ITS ---
EXAMINATION: ULTRASOUND OF KIDNEYS WITH RENAL ARTERY DOPPLER CLINICAL INFORMATION: CKD stage 3a. COMPARISON: None available. TECHNIQUE: Ultrasound of the kidneys was performed along with color flow Doppler imaging and velocity measurements in the proximal mid and distal renal arteries. Aortic velocities were measured and renal/aortic ratios were calculated. Segmental resistive indices were calculated. FINDINGS: The kidneys are slightly small with echogenic mildly thinned cortex with the right kidney measuring 9.2 cm and the left kidney measuring 8.2 cm in length. A benign right lower pole 2.8 cm Bosniak class I renal cyst is noted which requires no additional imaging or follow up. No solid renal masses are seen. No renal stones or hydronephrosis is seen. Velocity measurements in the proximal mid and distal renal arteries are normal. Velocity in the aorta is normal and, therefore, the renal aortic ratios are normal. Segmental resistive indices were normal. US/US renal doppler IMPRESSION: 1. No evidence to suggest renal artery stenosis. 2. Small echogenic kidneys with thinned cortex consistent with medical renal disease.
--- NOTE | ~2024-01-28 | US_ITS ---
EXAMINATION: US ABDOMEN COMPLETE CLINICAL INFORMATION: Thrombocytopenia. COMPARISON: None available. TECHNIQUE: Real-time imaging of the abdominal viscera. FINDINGS: PANCREAS: The visualized portions of the pancreas are unremarkable but a large portion of the gland is obscured by bowel gas. ABDOMINAL AORTA: The proximal, mid, and distal segments are normal in caliber. Atherosclerotic changes are present in the aorta. INFERIOR VENA CAVA: Visualized portions are normal. LIVER: The liver is normal in size. The liver contour is normal. Parenchymal echogenicity is normal. No focal hepatic lesion. There is no intrahepatic biliary duct dilatation seen. GALLBLADDER: The gallbladder is physiologically distended. There is a 3 mm adherent nonmobile echogenic focus which likely represents a polyp rather than a stone. Gallbladder wall mildly thickened at 3 mm. There is no pericholecystic fluid. Chavez's sign is positive. COMMON BILE DUCT: Normal in caliber measuring 0.3 cm in diameter. RIGHT KIDNEY: Kidney is echogenic with mild cortical thinning. No hydronephrosis. No renal calculi or focal parenchymal lesions. The kidney measures 9.2 cm in maximum dimension. LEFT KIDNEY: Kidney is echogenic with mild cortical thinning. No hydronephrosis. No renal calculi. A benign exophytic cortical 2.8 cm Bosniak class I renal cyst is noted which requires no additional imaging or follow up. No solid renal masses are seen. The kidney measures 8.9 cm in maximum dimension. SPLEEN: Normal. The spleen measures 8.3 cm in maximum dimension. FREE FLUID: None. US/US abdomen complete IMPRESSION: 1. Echogenic kidneys with cortical thinning suggesting medical renal disease. 2. 3 mm gallbladder polyp with mild gallbladder wall thickening and positive Chavez's sign. If there is concern for cholecystitis, HIDA scan could be performed.
== END 2024-01-28 08:37 | disposition home or self-care (01) ==
LOC: HO.US 08:36
PROVIDERS: PCP Family Medicine; Visit Provider Family Medicine
DX: I12.9 Hypertensive chronic kidney disease with stage 1 through stage 4 chronic kidney disease, or unspecified chronic kidney disease (principal); N18.31 Chronic kidney disease, stage 3a; D69.6 Thrombocytopenia, unspecified; D64.9 Anemia, unspecified
CPT/HCPCS: 76700; 93975

== ENCOUNTER → 2024-02-07 14:07 | Outpatient (BNV) | payer MEDICARE, OTHER, SELFPAY | PROVIDERS: PCP Family Medicine; Referring Provider Family Medicine; Visit Provider Internal Medicine | DX: D69.6 Thrombocytopenia, unspecified (principal) | CPT/HCPCS: 99204; 99213; 99214; G2211 ==

== ENCOUNTER 2024-02-15 11:37 | Outpatient (REF) | payer MEDICARE, OTHER, SELFPAY ==
[2024-02-15 14:30] LABS: MANUAL DIFF FLAG NO
[2024-02-15 14:33] LABS: Appearance Urine Cloudy; Color Urine Yellow; Glucose Urine UA Negative (Negative); Leukocyte Esterase Urine Large (3+) (Negative); Nitrite Urine Negative (Negative); PH 5.5 (5.0-9.0); UMIC TRIGGER UA YES; Urine Blood Negative (Negative); Urine Ketones Negative (Negative); Urine Protein Negative (Neg-Trace)
[2024-02-15 14:45] LABS: Bacteria Urine Trace (None Seen); Hyaline Casts Urine 0-2 /LPF (0-2); RBC Urine 0-2 /HPF (0-2); WBC Urine 21-50 /HPF (0-5)
[2024-02-15 14:45] LABS: Basophils Percent Auto 0.6 % (0-2); Eosinophils Absolute Auto 0.3 X10*3/uL (0.0-0.4); Hematocrit 32.6 % (37.0-47.0); Hemoglobin 10.7 g/dl (12.0-16.0); Imm Gran Abs Auto 0.02 X10*3/uL (0.00-0.03); Imm Gran Pct Auto 0.3 % (0.0-0.4); Lymphocytes Absolute Auto 1.9 X10*3/uL (1.2-4.9); Lymphocytes Percent Auto 30.6 % (20-40); Mean Corpuscular HGB Conc 32.8 g/dl (31.0-35.0); Mean Corpuscular Hemoglobin 30.6 pg (27.0-33.0); Mean Corpuscular Volume 93.1 fL (80.0-98.0); Mean Platelet Volume 10.1 fL (9.4-12.3); Monocytes Absolute Auto 0.6 X10*3/uL (0.1-1.2); Monocytes Percent Auto 9.6 % (2-11); Neutrophils Absolute Auto 3.4 x10*3/uL (2.0-8.3); Neutrophils Percent Auto 53.9 % (45-73); Platelet Count 109 X10*3/uL (160-400); Red Cell Distribution Width 12.3 % (11.0-16.0); White Blood Count 6.2 X10*3/uL (4.8-10.8)
[2024-02-15 14:46] LABS: Other Crystals Urine Present
[2024-02-15 15:12] LABS: Creatinine Urine 61.43 mg/dL; Microalbum/Creatinine Ratio Ur 37.4 ug/mg cr (<30)
[2024-02-15 15:25] LABS: Anion Gap 11 (12-20); Blood Urea Nitrogen 39 mg/dL (9-16); Calcium 9.9 mg/dL (8.4-10.2); Carbon Dioxide 25 mmol/L (22-29); Chloride 109 mmol/L (96-108); Estimated Glomerular Filt Rate 24; Glucose Random 124 mg/dL (60-115); Potassium 4.5 mmol/L (3.3-5.1); Sodium 140 mmol/L (135-145)
== END 2024-02-15 11:38 | disposition home or self-care (01) ==
LOC: HO.WFDLDS 11:37
PROVIDERS: Visit Provider Family Medicine
DX: Z00.00 Encounter for general adult medical examination without abnormal findings (principal); D69.6 Thrombocytopenia, unspecified; I10 Essential (primary) hypertension
CPT/HCPCS: 36415; 80048; 81001; 82043; 82570; 85025

== ENCOUNTER 2024-02-17 13:39 | Outpatient (AMB) | payer MEDICARE, OTHER, SELFPAY ==
--- NOTE | 2024-02-17 13:46 | MHC.PC.OV ---
Vital Signs 02/17/24 13:47 Height 4 ft 11 in Weight 145 lb BMI 29.3 BP 118/58 L Blood Pressure Location Lt brachial Position Sitting Pulse 75 Pulse Source Pulse Oximeter Pulse Oximetry (%) 98 Oxygen Delivery Method Room Air Intake Visit Reasons: f/u anemia Intake Note: Patient is here for a follow up- she states she would like to go over her labs. Principal Investigator Required: No Allergies No Known Allergies Allergy (Verified 02/17/24 13:53) Tobacco use date assessed: 10/07/23 Fall risk assessment: No Falls in past year Last assessed Fall Risk: 02/17/24 Dental Screening Dental Screen Date: 07/22/23 HPI f/u anemia HPI Details 78 y/o female presents to f/u renal failure, hypertension, anemia/thrombocytopenia. Checking ultrasound abdomen to rule out hepatosplenomegaly. Also I have referred her to Hematology-Oncology. Checking renal Dopplers for renal artery stenosis Abdomen ultrasound 01/28/24 showed: 1. Echogenic kidneys with cortical thinning suggesting medical renal disease. 2. 3 mm gallbladder polyp with mild gallbladder wall thickening and positive Chavez's sign. If there is concern for cholecystitis, HIDA scan could be performed. Renal ultrasound 01/28/24 showed no evidence to suggest renal artery stenosis. Small echogenic kidneys with thinned cortex consistent with medical renal disease. Blood pressure today 118/58, 75p. She is on lisinopril 1.25mg, metoprolol 25mg b.i.d. Labs drawn 02/15/24. Reviewed labs with pt. Ongoing anemia,mildly worsened. Plt count worsened from 119 to 109. Creatinine level 2.03 mg/dL. HPI Comments History of Present Illness Details Documentation assistance for Dhiraj Cano MD, was provided by Bijan Mosqueda, Appeals Referee on 02/17/2024 at 1:54 PM EST. I, Dr. Cano, have read, observed, and verified documentation. [facility] Medical History No pertinent past medical history Surgical History History of breast surgery History of surgical procedure on mouth Social History Household Members: Spouse Housing: House Alcohol intake: current Alcohol type: wine Patient Tobacco Use Status: Former Tobacco user e-Cigarette/Vaping Use: Never Used Second Hand Smoke Exposure: No service: No Current occupational status: retired Current occupational exposures/hazards: No Gender identity: Female Cognitive needs: No Hearing needs: No Vision needs: No (glasses) Questionnaire Thrive Questionnaire Date Thrive assessed: 10/07/23 ANABELL-7 AMB Questionnaire ANABELL-7 Date ANABELL - 7 assessed: 10/07/23 Source: Developed by Drs. South Johnson, Alisson Fuentes, Yannick Morfin and colleagues, with an educational jef from [employer]. Review of Systems Const Denies chills, Denies fatigue, Denies fever(s), Denies headache(s) and Denies weakness ENT Denies dizziness and Denies headache(s) Card Denies dyspnea Resp Denies cough, Denies dyspnea, Denies wheezing and Denies other (shortness of breath) Musc Denies numbness and Denies tingling Neuro Denies dizziness, Denies headache(s), Denies numbness, Denies tingling and Denies weakness Psych Denies anxiety and Denies depression Endo Denies fatigue Aller/Immun Denies wheezing Physical exam (Primary Care) Vital Signs: Last Vital Signs Pulse 75 02/17/24 13:47 BP 118/58 L 02/17/24 13:47 Pulse Ox 98 02/17/24 13:47 Oxygen Delivery Method Room Air 02/17/24 13:47 BMI result Body Mass Index 29.3 Tobacco/Smoking Status: Tobacco use Status Tobacco use date assessed 10/07/23 02/17/24 13:51 Patient Tobacco Use Status Former Tobacco user 02/17/24 13:51 e-Cigarette/Vaping Use Never Used 02/17/24 13:51 Thrive Assessment: Date of Thrive Assessment Date Thrive assessed 10/07/23 02/17/24 13:51 Const General: well developed; No acute distress Nutritional Appearance: well nourished Orientation/consciousness: patient oriented x3 HENMT Head: Yes normocephalic and Yes atraumatic Eyes General: appearance normal, both eyes and all related structures Pupils: Equal, round and reactive pupils present EOM: EOMs intact bilaterally Resp Effort & Inspection: normal respiratory effort Neuro General: patient oriented x3 and gait normal Cranial nerves: Yes Equal, round and reactive pupils present Psych Affect: normal affect Assessment and Plan Assessment & Plan (1) Hypertension: Code(s): I10 - Essential (primary) hypertension Plan: Blood?pressure?is?controlled.??Goal?is?less?than?130/80 Continue?current?medication (2) Anemia: Code(s): D64.9 - Anemia, unspecified Plan: Patient?has?mild?chronic?normocytic?anemia Likely?anemia?of?chronic?disease?secondary?to?chronic?renal?failure This?is?stable.??She?is?followed?by?Nephrology Continue?to?control?hypertension,?blood?sugar?and?lipids.??Continue?good?hydration.??Void?frequently Will?follow Follow-up?with?nephrology?as?recommended (3) Thrombocytopenia: Code(s): D69.6 - Thrombocytopenia, unspecified Plan: Followed?by?Hematology-Oncology Recent?ultrasound?of?liver?and?spleen?are?negative?for?HSM Stable? Will?continue?to?monitor (4) CKD (chronic kidney disease) stage 3, GFR 30-59 ml/min: Code(s): N18.30 - Chronic kidney disease, stage 3 unspecified Qualifiers: Chronic kidney disease stage 3 subtype: stage 3a (GFR 45-59) Qualified Code(s): N18.31 - Chronic kidney disease, stage 3a Plan: As?above (5) Abdominal pain: Code(s): R10.9 - Unspecified abdominal pain Plan: Mild?right?upper?quadrant?discomfort?periodically No?fevers?or?chills,?no?nausea?or?vomiting She?had?a?mild?Chavez's?sign?during?ultrasound Patient?also?has?a?is?small?gallbladder?polyp?measuring?3?mm.??Unrelated?to?the?above?abdominal?discomfort. Avoid?fried,?fatty?foods Coding Level of Care Code Est Pt Level 4 (15481) Diagnoses Hypertension I10 Anemia D64.9 Thrombocytopenia D69.6 Stage 3a chronic kidney disease N18.31 Chronic kidney disease stage 3 subtype: stage 3a (GFR 45-59) Abdominal pain R10.9
[2024-02-17 13:47] VITALS: BP 118/58; PULSE 75; O2SAT 98; BMI 29.3
== END 2024-02-17 14:51 | disposition home or self-care (01) ==
PROVIDERS: PCP Family Medicine; Visit Provider Family Medicine
DX: I12.9 Hypertensive chronic kidney disease with stage 1 through stage 4 chronic kidney disease, or unspecified chronic kidney disease (principal); D64.9 Anemia, unspecified; D69.6 Thrombocytopenia, unspecified; N18.31 Chronic kidney disease, stage 3a; R10.9 Unspecified abdominal pain
CPT/HCPCS: 99214

== ENCOUNTER 2024-04-10 12:49 | Outpatient (REF) | payer MEDICARE, OTHER, SELFPAY ==
[2024-04-10 14:36] LABS: Anion Gap 13 (12-20); Blood Urea Nitrogen 31 mg/dL (9-16); Carbon Dioxide 26 mmol/L (22-29); Chloride 107 mmol/L (96-108); Estimated Glomerular Filt Rate 22; Potassium 4.4 mmol/L (3.3-5.1); Sodium 142 mmol/L (135-145)
== END 2024-04-10 12:50 | disposition home or self-care (01) ==
LOC: HO.WFDLDS 12:49
PROVIDERS: Visit Provider Internal Medicine Nephrology
DX: I12.9 Hypertensive chronic kidney disease with stage 1 through stage 4 chronic kidney disease, or unspecified chronic kidney disease (principal); N18.30 Chronic kidney disease, stage 3 unspecified
CPT/HCPCS: 36415; 80051; 82565; 84520

== ENCOUNTER 2024-04-12 11:40 | Outpatient (AMB) | payer MEDICARE, OTHER, SELFPAY ==
--- NOTE | 2024-04-12 11:46 | HO.NEPHOV ---
Vital Signs 04/12/24 11:48 Height 4 ft 11 in Weight 145 lb 2 oz BMI 29.3 BP 114/60 Blood Pressure Location Rt brachial Position Sitting Pulse 61 Pulse Source Pulse Oximeter Pulse Oximetry (%) 96 Oxygen Delivery Method Room Air Intake Visit Reasons: CKD Social Media Intern Required: No Accompanied by: Self / Same As Patient Allergies No Known Allergies Allergy (Verified 04/12/24 11:51) HPI Comments Details: Eileen was seen in follow-up of her chronic kidney disease. She is known to have coronary artery disease, TIA and hypertension but no congestive heart failure. Recently her serum creatinine has gone up and her ISMA-inhibitor dosage has been adjusted. Her renal ultrasound in the past showed a renal cyst per never had Doppler of renal arteries. She has history of trace blood in the urine and has seen Urology. She denies chest pain, shortness of breath, proximal nocturnal dyspnea, orthopnea, pedal edema or urinary symptoms. She avoids nonsteroidal anti-inflammatory medications. She tries to maintain good hydration and consume a low-sodium diet. She has seen Hematology. Her abdominal USS was unremarkable. She had an ECHO which is OK as per the patient. [facility] Medical History No pertinent past medical history Surgical History History of breast surgery History of surgical procedure on mouth Social History Household Members: Spouse Housing: House Alcohol intake: current Alcohol type: wine Patient Tobacco Use Status: Former Tobacco user e-Cigarette/Vaping Use: Never Used Second Hand Smoke Exposure: No service: No Current occupational status: retired Current occupational exposures/hazards: No Gender identity: Female Cognitive needs: No Hearing needs: No Vision needs: No (glasses) Review of Systems Const All systems reviewed & are unremarkable except as noted in HPI and below Physical Exam Vital Signs: Last Vital Signs Pulse 61 04/12/24 11:48 BP 114/60 04/12/24 11:48 Pulse Ox 96 04/12/24 11:48 Oxygen Delivery Method Room Air 04/12/24 11:48 BMI result Body Mass Index 29.3 Const General: comfortable and no acute distress Orientation/consciousness: patient oriented x3 HEENT Head: Yes normocephalic Mouth: Normal oral and palatal mucosa present Eyes EOM: EOMs intact bilaterally Neck Neck: Yes supple Resp Auscultation: clear to auscultation bilaterally Cardio Jugular venous distension: no JVD Rate: regular rate GI Palpation (GI): Soft to palpation Auscultation: normal bowel sounds General: Yes no CVA tenderness Back/Spine/Pelvis Back: no CVA tenderness Skin General skin exam: no rashes or lesions noted Neuro General: patient oriented x3 and moves all extremities Extrem General: Yes no pedal edema Results Reviewed Nephrology Results: Hgb 10.7 g/dl (12.0-16.0) L 02/15/24 WBC 6.2 X10*3/uL (4.8-10.8) 02/15/24 Plt Count 109 X10*3/uL (160-400) L 02/15/24 Sodium 142 mmol/L (135-145) 04/10/24 Potassium 4.4 mmol/L (3.3-5.1) 04/10/24 Chloride 107 mmol/L (96-108) 04/10/24 Carbon Dioxide 26 mmol/L (22-29) 04/10/24 BUN 31 mg/dL (9-16) H 04/10/24 Creatinine 2.18 mg/dL (0.5-1.4) H 04/10/24 Calcium 9.9 mg/dL (8.4-10.2) 02/15/24 Urine Protein Negative mg/dL (Neg-Trace) 02/15/24 Urine Creatinine 61.43 mg/dL 02/15/24 Protein/Creatinin Ratio 0.06 (<0.2) 12/08/23 Renal US 01/28/24 Assessment & Plan Assessment & Plan (1) Hypertension: Code(s): I10 - Essential (primary) hypertension Category: Medical Qualifiers: Hypertension type: primary hypertension Qualified Code(s): I10 - Essential (primary) hypertension (2) CKD (chronic kidney disease) stage 3, GFR 30-59 ml/min: Code(s): N18.30 - Chronic kidney disease, stage 3 unspecified Category: Medical Qualifiers: Chronic kidney disease stage 3 subtype: stage 3a (GFR 45-59) Qualified Code(s): N18.31 - Chronic kidney disease, stage 3a Abe Arellano has chronic kidney disease due to vascular disease. 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 Her serum creatinine is marginally worse . I stopped her ACEI. Her blood pressure is at goal. She has no orthostasis. She avoids nonsteroidal anti-inflammatories. Her urine output is good. I did not make any medication changes at this visit. Follow-up lab data ordered. Answered all questions. Follow-up given Orders: Orders Blood Urea Nitrogen 3 Months I10 - Essential (primary) hypertension, N18.31 - Chronic kidney disease, stage 3a Electrolytes 3 Months I10 - Essential (primary) hypertension, N18.31 - Chronic kidney disease, stage 3a Creatinine 3 Months I10 - Essential (primary) hypertension, N18.31 - Chronic kidney disease, stage 3a Medications: Discontinued lisinopril Discontinued Reason: Doctor's Order 1.25 mg (1/2 x 2.5 mg) PO DAILY 90 days 45 tabs 1RF Coding Level of Care Code Est Pt Level 4 (84125) Diagnoses Primary hypertension I10 Hypertension type: primary hypertension Stage 3a chronic kidney disease N18.31 Chronic kidney disease stage 3 subtype: stage 3a (GFR 45-59)
[2024-04-12 11:48] VITALS: BP 114/60; PULSE 61; O2SAT 96; BMI 29.3
== END 2024-04-12 12:29 | disposition home or self-care (01) ==
PROVIDERS: PCP Family Medicine; Visit Provider Internal Medicine Nephrology
DX: I13.10 Hypertensive heart and chronic kidney disease without heart failure, with stage 1 through stage 4 chronic kidney disease, or unspecified chronic kidney disease (principal); N18.31 Chronic kidney disease, stage 3a; I25.10 Atherosclerotic heart disease of native coronary artery without angina pectoris
CPT/HCPCS: 99214

== ENCOUNTER → 2024-04-12 11:40 | Outpatient (BNVA) | payer MEDICARE, OTHER, SELFPAY | PROVIDERS: PCP Family Medicine; Visit Provider Internal Medicine Nephrology | DX: I12.9 Hypertensive chronic kidney disease with stage 1 through stage 4 chronic kidney disease, or unspecified chronic kidney disease (principal); N18.31 Chronic kidney disease, stage 3a; I25.10 Atherosclerotic heart disease of native coronary artery without angina pectoris; Z86.73 Personal history of transient ischemic attack (TIA), and cerebral infarction without residual deficits | CPT/HCPCS: 99212 ==

== ENCOUNTER 2024-06-05 14:12 | Outpatient (AMB) | payer MEDICARE, OTHER, SELFPAY ==
--- NOTE | 2024-06-05 14:27 | A.OFFPC_ITS ---
Vital Signs 06/05/24 14:30 Height 4 ft 11 in Weight 146 lb BMI 29.5 BP 110/58 L Blood Pressure Location Lt brachial Position Sitting Respiration 16 Pulse 65 Pulse Source Pulse Oximeter Temp 97.7 F Temp Source Oral Pulse Oximetry (%) 98 Oxygen Delivery Method Room Air Intake Visit Reasons: Follow-up hypertension, crf Intake Note: f/u for htn Allergies No Known Allergies Allergy (Verified 06/05/24 14:28) Tobacco use date assessed: 10/07/23 Dental Screening Dental Screen Date: 07/22/23 HPI Follow-up hypertension, crf HPI Details 79 y/o female presents to f/u hypertensi on, CRF and chronic conditions. Saw Nephrology 04/12/24. They had stopped her ACEI and continues to f/u with them. Blood pressure today 110/58, 65p. She is on metoprolol 25mg b.i.d. Pt saw HARDWARE TEST ENGINEER Dr Sanchez - Had bone?density?testing?done [facility] Medical History No pertinent past medical history Surgical History History of breast surgery History of surgical procedure on mouth Social History Household Members: Spouse Housing: House Alcohol intake: current Alcohol type: wine Patient Tobacco Use Status: Former Tobacco user e-Cigarette/Vaping Use: Never Used Second Hand Smoke Exposure: No service: No Current occupational status: retired Current occupational exposures/hazards: No Gender identity: Female Cognitive needs: No Hearing needs: No Vision needs: No (glasses) Questionnaire PHQ-9 Over the last 2 weeks, how often have you been bothered by any of the following problems? 1. Little interest or pleasure in doing things: not at all 2. Feeling down, depressed, or hopeless: not at all 3. Trouble falling or staying asleep, or sleeping too much: not at all 4. Feeling tired or having little energy: not at all 5. Poor appetite or overeating: not at all 6. Feeling bad about yourself - or that you are a failure or have let yourself or your family down: not at all 7. Trouble concentrating on things, such as reading the newspaper or watching television: not at all 8. Moving or speaking so slowly that other people could have noticed. Or the opposite - being so fidgety or restless that you have been moving around a lot more than usual: not at all 9. Thoughts that you would be better off or of hurting yourself in some way: not at all Total score: 0 Source: Developed by Drs. South Johnson, Alisson Fuentes, Yannick Morfin and colleagues, with an educational jef from [employer]. Thrive Questionnaire Date Thrive assessed: 05/29/24 I am a: Patient What is your living situation today?: I have a steady place to live Within the past 12 months, did the food you bought not last and you didn't have the money to get more?: Never true Within the past 12 months, did you worry whether your food would run out before you got money to buy more?: Never true Do you have trouble paying for medicines?: No Do you have trouble getting transportation to medical appointments?: No Do you have trouble paying your heating and electricity bill?: No Do you have trouble taking care of your child, family member or friend?: No Do you have trouble with day-to-day activities such as bathing, preparing meals, shopping, managing finances, etc.?: No Are you currently unemployed and looking for a job?: No Are you interested in more education?: No Please select the resources that you would like help with: None Currently or been in a relationship where the following occur: No concerns reported THRIVE Score: 0 AUDIT C Alcohol Use Questionnaire (AUDIT-C) 1. How often do you have a drink containing alcohol?: 2-4 times a month 2. How many drinks containing alcohol do you have on a typical day when you are drinking?: 1 or 2 3. How often do you have six or more drinks on one occasion?: Never Total Score: 2 ANABELL-7 AMB Questionnaire ANABELL-7 Date ANABELL - 7 assessed: 10/07/23 Feeling nervous, anxious, or on edge: 0 = Not at all Not being able to stop or control worryin = Not at all Worrying too much about different things: 0 = Not at all Trouble relaxin = Not at all Being so restless that it is hard to sit still: 0 = Not at all Becoming easily annoyed or irritable: 0 = Not at all Feeling afraid as if something awful might happen: 0 = Not at all Total ANABELL-7 score (0-4 normal; 5-9 mild; 10-14 moderate; 15-21 severe): 0 Source: Developed by Drs. South Johnson, Alisson Fuentes, Yannick Morfin and colleagues, with an educational jef from [employer]. Review of Systems Const Denies chills, Denies fatigue, Denies fever(s), Denies headache(s) and Denies weakness ENT Denies dizziness and Denies headache(s) Card Denies dyspnea Resp Denies cough, Denies dyspnea, Denies wheezing and Denies other (shortness of breath) Musc Denies numbness and Denies tingling Neuro Denies dizziness, Denies headache(s), Denies numbness, Denies tingling and Denies weakness Psych Denies anxiety and Denies depression Endo Denies fatigue Aller/Immun Denies wheezing Physical exam (Primary Care) Vital Signs: Last Vital Signs Temp 97.7 F 06/05/24 14:30 Pulse 65 06/05/24 14:30 Resp 16 06/05/24 14:30 BP 110/58 L 06/05/24 14:30 Pulse Ox 98 06/05/24 14:30 Oxygen Delivery Method Room Air 06/05/24 14:30 BMI result Body Mass Index 29.5 Tobacco/Smoking Status: Tobacco use Status Tobacco use date assessed 10/07/23 06/05/24 14:35 Patient Tobacco Use Status Former Tobacco user 06/05/24 14:35 e-Cigarette/Vaping Use Never Used 06/05/24 14:35 PHQ-9: PHQ-9 Score PHQ-9: Total score 0 06/05/24 14:54 Thrive Assessment: Date of Thrive Assessment Date Thrive assessed 05/29/24 06/05/24 14:35 Currently or been in a relationship where the following occur: No concerns reported Const General: well developed; No acute distress Nutritional Appearance: well nourished Orientation/consciousness: patient oriented x3 HENMT Head: Yes normocephalic and Yes atraumatic Eyes General: appearance normal, both eyes and all related structures Pupils: Equal, round and reactive pupils present EOM: EOMs intact bilaterally Resp Effort & Inspection: normal respiratory effort Neuro General: patient oriented x3 and gait normal Cranial nerves: Yes Equal, round and reactive pupils present Psych Affect: normal affect Coding Level of Care Code Est Pt Level 4 (38891) Diagnoses Primary hypertension I10 Hypertension type: primary hypertension Chronic renal failure N18.9 CAD (coronary artery disease) I25.10 Screening for osteoporosis Z13.820 Assessment & Plan Assessment & Plan (1) Hypertension: Code(s): I10 - Essential (primary) hypertension Category: Medical Qualifiers: Hypertension type: primary hypertension Qualified Code(s): I10 - Essential (primary) hypertension Plan: Blood?pressure?is?well?controlled.??Goal?less?than?130/80 Continue?current?medication?regimen (2) Chronic renal failure: Code(s): N18.9 - Chronic kidney disease, unspecified Category: Medical Plan: Followed?by? Creatinine?had?been?rising?so?ISMA?inhibitor?was?discontinued. Rechecking?creatinine?level Follow-up?with? Patient?may?be?a?good?candidate?for?[facility]ardiance - discuss?with??at?n ext?visit (3) CAD (coronary artery disease): Code(s): I25.10 - Atherosclerotic heart disease of [place] coronary artery without angina pectoris Category: Medical Plan: Stable Follow-up?with??as?recommended (4) Screening for osteoporosis: Code(s): Z13.820 - Encounter for screening for osteoporosis Category: Medical Plan: Patient?says?she?had?a?bone?density?test?ordered?by?her?dining room attendant cafeteria,? She?describes?osteopenia?but?I?do?not?have?the?report.??Will?request?'s? note?in?he?bone?density?study?report Orders: Orders Complete Blood Count Auto Diff Today N18.31 - Chronic kidney disease, stage 3a, Z00.00 - Encounter for general adult medical examination without abnormal findings Thyroid Stimulating Hormone Today E03.9 - Hypothyroidism, unspecified, N18.31 - Chronic kidney disease, stage 3a Free T4 (Free Thyroxine) Today E03.9 - Hypothyroidism, unspecified, N18.31 - Chronic kidney disease, stage 3a Comprehensive Met. Panel Today N18.31 - Chronic kidney disease, stage 3a Microalbumin, Random (w Creat) Today I10 - Essential (primary) hypertension, N18.31 - Chronic kidney disease, stage 3a Vitamin D 25-OH Total Today E55.9 - Vitamin D deficiency, unspecified, N18.31 - Chronic kidney disease, stage 3a
[2024-06-05 14:30] VITALS: BP 110/58; PULSE 65; RESP 16; TEMP 36.5; O2SAT 98; BMI 29.5
== END 2024-06-05 15:46 | disposition home or self-care (01) ==
PROVIDERS: PCP Family Medicine; Visit Provider Family Medicine
DX: I12.9 Hypertensive chronic kidney disease with stage 1 through stage 4 chronic kidney disease, or unspecified chronic kidney disease (principal); N18.9 Chronic kidney disease, unspecified; I25.10 Atherosclerotic heart disease of native coronary artery without angina pectoris; Z13.820 Encounter for screening for osteoporosis

== ENCOUNTER 2024-06-05 15:34 | Outpatient (REF) | payer MEDICARE, OTHER, SELFPAY ==
[2024-06-05 17:39] LABS: MANUAL DIFF FLAG NO
[2024-06-05 17:55] LABS: Basophils Percent Auto 0.5 % (0-2); Eosinophils Absolute Auto 0.2 X10*3/uL (0.0-0.4); Eosinophils Percent Auto 3.9 % (0-4); Hematocrit 33.3 % (37.0-47.0); Hemoglobin 11.1 g/dl (12.0-16.0); Imm Gran Abs Auto 0.02 X10*3/uL (0.00-0.03); Imm Gran Pct Auto 0.3 % (0.0-0.4); Lymphocytes Absolute Auto 1.7 X10*3/uL (1.2-4.9); Lymphocytes Percent Auto 29.4 % (20-40); Mean Corpuscular HGB Conc 33.3 g/dl (31.0-35.0); Mean Corpuscular Hemoglobin 31.5 pg (27.0-33.0); Mean Corpuscular Volume 94.6 fL (80.0-98.0); Mean Platelet Volume 10.1 fL (9.4-12.3); Monocytes Absolute Auto 0.6 X10*3/uL (0.1-1.2); Monocytes Percent Auto 10.3 % (2-11); Neutrophils Absolute Auto 3.3 x10*3/uL (2.0-8.3); Neutrophils Percent Auto 55.6 % (45-73); Platelet Count 114 X10*3/uL (160-400); Red Blood Count 3.52 X10*6/uL (4.20-5.50); Red Cell Distribution Width 12.6 % (11.0-16.0); White Blood Count 5.9 X10*3/uL (4.8-10.8)
[2024-06-05 18:19] LABS: Alanine Aminotransferase 17 U/L (0-31); Albumin Level 4.4 g/dL (3.5-5.0); Alkaline Phosphatase 66 U/L (39-117); Anion Gap 9 (12-20); Aspartate Amino Transferase 27 U/L (5-31); Bilirubin Total 0.5 mg/dL (0.0-1.0); Blood Urea Nitrogen 39 mg/dL (9-16); Calcium 10.2 mg/dL (8.4-10.2); Carbon Dioxide 28 mmol/L (22-29); Chloride 110 mmol/L (96-108); Estimated Glomerular Filt Rate 22; Glucose Random 107 mg/dL (60-115); Potassium 4.3 mmol/L (3.3-5.1); Sodium 143 mmol/L (135-145); Total Protein 6.9 g/dL (6.5-8.0)
[2024-06-05 18:24] LABS: Creatinine Urine 84.92 mg/dL; Microalbum/Creatinine Ratio Ur 37.6 ug/mg cr (<30)
[2024-06-05 18:35] LABS: Free T4 (Free Thyroxine) 1.11 ng/dL (0.71-1.85); Vitamin D 25-OH Total 57.2 ng/mL (>30)
== END 2024-06-05 15:35 | disposition home or self-care (01) ==
LOC: HO.WFDLDS 15:34
PROVIDERS: Visit Provider Family Medicine
DX: Z00.00 Encounter for general adult medical examination without abnormal findings (principal); N18.31 Chronic kidney disease, stage 3a; E03.9 Hypothyroidism, unspecified; I10 Essential (primary) hypertension; E55.9 Vitamin D deficiency, unspecified; N18.9 Chronic kidney disease, unspecified; I25.10 Atherosclerotic heart disease of native coronary artery without angina pectoris
CPT/HCPCS: 36415; 80053; 82043; 82306; 82570; 84439; 84443; 85025; 99212

== ENCOUNTER 2024-07-10 13:59 | Outpatient (REF) | payer MEDICARE, OTHER, SELFPAY ==
[2024-07-10 18:14] LABS: Anion Gap 10 (12-20); Blood Urea Nitrogen 31 mg/dL (9-16); Carbon Dioxide 26 mmol/L (22-29); Chloride 111 mmol/L (96-108); Estimated Glomerular Filt Rate 23; Potassium 4.4 mmol/L (3.3-5.1); Sodium 143 mmol/L (135-145)
== END 2024-07-10 14:00 | disposition home or self-care (01) ==
LOC: HO.WFDLDS 13:59
PROVIDERS: Visit Provider Internal Medicine Nephrology
DX: N18.31 Chronic kidney disease, stage 3a (principal); I10 Essential (primary) hypertension
CPT/HCPCS: 36415; 80051; 82565; 84520

== ENCOUNTER 2024-07-12 10:24 | Outpatient (AMB) | payer MEDICARE, OTHER, SELFPAY ==
--- NOTE | 2024-07-12 10:45 | HO.NEPHOV ---
Vital Signs 07/12/24 10:47 Height 4 ft 11 in Weight 144 lb 2 oz BMI 29.1 BP 120/60 Blood Pressure Location Rt brachial Position Sitting Pulse 57 Pulse Source Pulse Oximeter Pulse Oximetry (%) 96 Oxygen Delivery Method Room Air Intake Visit Reasons: CKD Key Punch Teacher Required: No Accompanied by: Self / Same As Patient Allergies No Known Allergies Allergy (Verified 07/12/24 10:46) HPI Comments Details: Eileen was seen in follow-up of her chronic kidney disease. She is known to have coronary artery disease, TIA and hypertension but no congestive heart failure. Recently her serum creatinine has gone up and her ISMA-inhibitor dosage has been adjusted. Her renal ultrasound in the past showed a renal cyst per never had Doppler of renal arteries. She has history of trace blood in the urine and has seen Urology. She denies chest pain, shortness of breath, proximal nocturnal dyspnea, orthopnea, pedal edema or urinary symptoms. She avoids nonsteroidal anti-inflammatory medications. She tries to maintain good hydration and consume a low-sodium diet. She has seen Hematology. Her abdominal USS was unremarkable. She had an ECHO which is OK as per the patient. She feels well REPLACED BY [facility] Medical History No pertinent past medical history Surgical History History of breast surgery History of surgical procedure on mouth Social History Household Members: Spouse Housing: House Alcohol intake: current Alcohol type: wine Patient Tobacco Use Status: Former Tobacco user e-Cigarette/Vaping Use: Never Used Second Hand Smoke Exposure: No service: No Current occupational status: retired Current occupational exposures/hazards: No Gender identity: Female Cognitive needs: No Hearing needs: No Vision needs: No (glasses) Review of Systems Const All systems reviewed & are unremarkable except as noted in HPI and below Physical Exam Vital Signs: Last Vital Signs Pulse 57 07/12/24 10:47 BP 120/60 07/12/24 10:47 Pulse Ox 96 07/12/24 10:47 Oxygen Delivery Method Room Air 07/12/24 10:47 BMI result Body Mass Index 29.1 Const General: comfortable and no acute distress Orientation/consciousness: patient oriented x3 HEENT Head: Yes normocephalic Mouth: Normal oral and palatal mucosa present Eyes EOM: EOMs intact bilaterally Neck Neck: Yes supple Resp Auscultation: clear to auscultation bilaterally Cardio Jugular venous distension: no JVD Rate: regular rate GI Palpation (GI): Soft to palpation Auscultation: normal bowel sounds General: Yes no CVA tenderness Back/Spine/Pelvis Back: no CVA tenderness Skin General skin exam: no rashes or lesions noted Neuro General: patient oriented x3 and moves all extremities Extrem General: Yes no pedal edema Results Reviewed Nephrology Results: Hgb 11.1 g/dl (12.0-16.0) L 06/05/24 WBC 5.9 X10*3/uL (4.8-10.8) 06/05/24 Plt Count 114 X10*3/uL (160-400) L 06/05/24 Sodium 143 mmol/L (135-145) 07/10/24 Potassium 4.4 mmol/L (3.3-5.1) 07/10/24 Chloride 111 mmol/L (96-108) H 07/10/24 Carbon Dioxide 26 mmol/L (22-29) 07/10/24 BUN 31 mg/dL (9-16) H 07/10/24 Creatinine 2.04 mg/dL (0.5-1.4) H 07/10/24 Calcium 10.2 mg/dL (8.4-10.2) 06/05/24 Urine Protein Negative mg/dL (Neg-Trace) 02/15/24 Urine Creatinine 84.92 mg/dL 06/05/24 Renal US 01/28/24 Assessment & Plan Assessment & Plan (1) CKD (chronic kidney disease) stage 3, GFR 30-59 ml/min: Code(s): N18.30 - Chronic kidney disease, stage 3 unspecified Category: Medical Qualifiers: Chronic kidney disease stage 3 subtype: stage 3a (GFR 45-59) Qualified Code(s): N18.31 - Chronic kidney disease, stage 3a (2) Hypertension: Code(s): I10 - Essential (primary) hypertension Category: Medical Qualifiers: Hypertension type: primary hypertension Qualified Code(s): I10 - Essential (primary) hypertension Plan Eileen has chronic kidney disease due to vascular disease. 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 Her serum creatinine is marginally better after I stopped her ACEI. Her blood pressure is at goal. She has no orthostasis. She avoids nonsteroidal anti-inflammatories. Her urine output is good. I did not make any medication changes at this visit. She will be a candidate for Jardiance or bexagliflozin. Follow-up lab data ordered. Answered all questions. Follow-up given Orders: Orders Creatinine 3 Months N18.31 - Chronic kidney disease, stage 3a Blood Urea Nitrogen 3 Months N18.31 - Chronic kidney disease, stage 3a Electrolytes 3 Months N18.31 - Chronic kidney disease, stage 3a Coding Level of Care Code Est Pt Level 4 (07482) Diagnoses Stage 3a chronic kidney disease N18.31 Chronic kidney disease stage 3 subtype: stage 3a (GFR 45-59) Primary hypertension I10 Hypertension type: primary hypertension
[2024-07-12 10:47] VITALS: BP 120/60; PULSE 57; O2SAT 96; BMI 29.1
== END 2024-07-12 11:28 | disposition home or self-care (01) ==
PROVIDERS: PCP Family Medicine; Visit Provider Internal Medicine Nephrology
DX: I12.9 Hypertensive chronic kidney disease with stage 1 through stage 4 chronic kidney disease, or unspecified chronic kidney disease (principal); N18.31 Chronic kidney disease, stage 3a
CPT/HCPCS: 99214

== ENCOUNTER → 2024-07-12 10:24 | Outpatient (BNVA) | payer MEDICARE, OTHER, SELFPAY | PROVIDERS: PCP Family Medicine; Visit Provider Internal Medicine Nephrology | DX: I12.9 Hypertensive chronic kidney disease with stage 1 through stage 4 chronic kidney disease, or unspecified chronic kidney disease (principal); N18.31 Chronic kidney disease, stage 3a | CPT/HCPCS: 99212 ==

== ENCOUNTER 2024-08-31 09:26 | Outpatient (REF) | payer MEDICARE, OTHER, SELFPAY ==
--- OUTSIDE RECORDS SUMMARY | 2024-08-31 10:41 | XMS_ITS | Clinical Summary ---
Author Organization [facility] Address [address] [facility] [address] [place] [address] Phone Care Team Providers Care Paint Laboratory Technician Name Role Phone Dhiraj Cano MD Primary Care Provider [phone] Allergies No known active allergies Medications atorvastatin (LIPITOR) 40 MG tablet Take 1 tablet by mouth 1 (one) time each day Active calcium carbonate (OS-DANNY) 600 MG tablet Take 1 tablet by mouth 2 (two) times a day Active metoprolol tartrate (LOPRESSOR) 25 MG tablet Take 1 tablet by mouth 2 (two) times a day Active niacin (NIASPAN) 750 MG CR tablet Take 1 tablet by mouth 2 (two) times a day Active [place]-3 Fatty Acids (Fish Oil Burp-Less) 1200 MG capsule Take 1 tablet by mouth 2 (two) times a day Active Magnesium 250 MG tablet Take 400 tablets by mouth 1 (one) time each day Active coenzyme Q-10 100 MG capsule Take 100 mg by mouth 1 (one) time each day 08/04/2021 Active aspirin (ST TELMA) 81 MG EC tablet Take 81 mg by mouth 1 (one) time each day Active lisinopril 2.5 MG tablet Take 2.5 mg by mouth 1 (one) time each day Active polyethylene glycol (GLYCOLAX) 17 g packet Take 17 g by mouth every other day Active Active Problems Problem Noted Date Diagnosed Date Hypertension 05/12/2021 Stage 3a chronic kidney disease 10/07/2020 Hypertensive renal disease 10/07/2020 Resolved Problems Problem Noted Date Diagnosed Date Resolved Date 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/2021 Coronary arteriosclerosis 12/18/2021 Dyspareunia 12/18/2021 12/18/2021 Female stress incontinence 12/18/2021 0 12/18/2021 Hypercholesterolemia 12/18/2021 022 Menopause 12/18/2021 12/18/2021 Osteopenia 12/18/2021 12/18/2021 Psoriasis 12/18/2021 12/18/2021 Immunizations Name Administration Dates Next Due Pfizer SARS-COV-2 09/05/2020,08/15/2020 Family History Medical History Relation Comments Hypertension Brother Heart disease Father Hypertension Father Kidney disease Father Cancer Sister Heart disease Sister Hypertension Sister Relation Status Comments Brother Father Sister Social History Tobacco Use Types Packs/Day Years Used Date Smoking Tobacco: Never Smokeless Tobacco: Never Tobacco Cessation:Counseling Given: Not Answered Alcohol Use Standard Drinks/Week Comments Yes 0 (1 standard drink = 0.6 oz pur e alcohol) Comments Unknown Sex and Gender Information Value Date Recorded Sex Assigned at Not on file Legal Sex Female 4:58 PM EST Gender Identity Not on file Sexual Orientation Not on file Last Filed Vital Signs Vital Sign Reading Time Taken Comments Blood Pressure 120/70 04/05/2023 1:49 PM EDT Pulse 65 04/05/2023 1:49 PM EDT Temperature - - Respiratory Rate - - Oxygen Saturation 98% 04/02/2022 3:56 PM EDT Inhaled Oxygen Concentration - - Weight 65.3 kg (144 lb) 04/05/2023 1:49 PM EDT Height 149.9 cm (4' 11 ) 05/12/2021 2:56 PM EST Body Mass Index 29.08 05/12/2021 2:56 PM EST Plan of Treatment Health Maintenance Due Date Last Done Comments Pneumococcal Vaccine: 65+ Ye ars (1 of 2 - PCV) 1951 Influenza Vaccine (#1) 2024 Hepatitis B Vaccine Aged Out No longe r eligible based on patient's age to complete this topic Insurance MEDICARE [place] Care Teams Paint Laboratory Technician Relationship Specialty Start Date End Date Dhiraj Cano MD [address] [place] [address] [place] [id number] PCP - General 07/15/20
[2024-08-31 11:32] LABS: MANUAL DIFF FLAG NO
[2024-08-31 12:00] LABS: Basophils Percent Auto 0.5 % (0-2); Eosinophils Absolute Auto 0.2 X10*3/uL (0.0-0.4); Eosinophils Percent Auto 3.4 % (0-4); Hematocrit 32.2 % (37.0-47.0); Hemoglobin 10.7 g/dl (12.0-16.0); Imm Gran Abs Auto 0.03 X10*3/uL (0.00-0.03); Imm Gran Pct Auto 0.5 % (0.0-0.4); Lymphocytes Absolute Auto 1.5 X10*3/uL (1.2-4.9); Lymphocytes Percent Auto 26.5 % (20-40); Mean Corpuscular HGB Conc 33.2 g/dl (31.0-35.0); Mean Corpuscular Volume 93.3 fL (80.0-98.0); Mean Platelet Volume 10.3 fL (9.4-12.3); Monocytes Absolute Auto 0.5 X10*3/uL (0.1-1.2); Monocytes Percent Auto 8.1 % (2-11); Neutrophils Absolute Auto 3.6 x10*3/uL (2.0-8.3); Red Blood Count 3.45 X10*6/uL (4.20-5.50); Red Cell Distribution Width 12.3 % (11.0-16.0); White Blood Count 5.8 X10*3/uL (4.8-10.8)
[2024-08-31 12:01] LABS: Platelet Count 73 X10*3/uL (160-400)
[2024-08-31 12:29] LABS: Anion Gap 11 (12-20); Blood Urea Nitrogen 33 mg/dL (9-16); Calcium 9.7 mg/dL (8.4-10.2); Carbon Dioxide 25 mmol/L (22-29); Chloride 110 mmol/L (96-108); Estimated Glomerular Filt Rate 24; Glucose Random 100 mg/dL (60-115); Potassium 4.7 mmol/L (3.3-5.1); Sodium 141 mmol/L (135-145)
== END 2024-08-31 09:27 | disposition home or self-care (01) ==
LOC: HO.WFDLDS 09:26
PROVIDERS: Visit Provider Family Medicine
DX: Z00.00 Encounter for general adult medical examination without abnormal findings (principal); I10 Essential (primary) hypertension; D64.9 Anemia, unspecified
CPT/HCPCS: 36415; 80048; 85025

== ENCOUNTER 2024-09-05 11:26 | Outpatient (AMB) | payer MEDICARE, OTHER, SELFPAY ==
--- NOTE | 2024-09-05 11:28 | MHC.PC.OV ---
Vital Signs 09/05/24 11:38 Height 4 ft 11 in Weight 145 lb BMI 29.3 BP 120/60 Blood Pressure Location Lt brachial Position Sitting Respiration 14 Pulse 65 Pulse Source Pulse Oximeter Temp 98.0 F Temp Source Oral Pulse Oximetry (%) 97 Oxygen Delivery Method Room Air Intake Visit Reasons: F/u labs Intake Note: follow up lab review Facilities Maintenance Assistant Required: No Allergies No Known Allergies Allergy (Verified 09/05/24 11:34) Tobacco use date assessed: 10/07/23 Dental Screening Dental Screen Date: 07/22/23 HPI F/u labs HPI Details 79 y/o female presents to f/u hypertension, CRF, chronic conditions. Labs drawn 08/31/24. Reviewed labs with pt. Ongoing anemia, thrombocytopenia and has been following up with [facility]. Creatinine level 2.02 mg/dL. [facility] Medical History No pertinent past medical history Surgical History History of breast surgery History of surgical procedure on mouth Social History Household Members: Spouse Housing: House Alcohol intake: current Alcohol type: wine Patient Tobacco Use Status: Former Tobacco user e-Cigarette/Vaping Use: Never Used Second Hand Smoke Exposure: No service: No Current occupational status: retired Current occupational exposures/hazards: No Gender identity: Female Cognitive needs: No Hearing needs: No Vision needs: No (glasses) Questionnaire PHQ-9 Over the last 2 weeks, how often have you been bothered by any of the following problems? 1. Little interest or pleasure in doing things: not at all 2. Feeling down, depressed, or hopeless: not at all 3. Trouble falling or staying asleep, or sleeping too much: not at all 4. Feeling tired or having little energy: not at all 5. Poor appetite or overeating: not at all 6. Feeling bad about yourself - or that you are a failure or have let yourself or your family down: not at all 7. Trouble concentrating on things, such as reading the newspaper or watching television: not at all 8. Moving or speaking so slowly that other people could have noticed. Or the opposite - being so fidgety or restless that you have been moving around a lot more than usual: not at all 9. Thoughts that you would be better off or of hurting yourself in some way: not at all Total score: 0 Source: Developed by Drs. South Johnson, Alisson Fuentes, Yannick Morfin and colleagues, with an educational jef from [employer]. Thrive Questionnaire Date Thrive assessed: 05/29/24 I am a: Patient What is your living situation today?: I have a steady place to live Within the past 12 months, did the food you bought not last and you didn't have the money to get more?: Never true Within the past 12 months, did you worry whether your food would run out before you got money to buy more?: Never true Do you have trouble paying for medicines?: No Do you have trouble getting transportation to medical appointments?: No Do you have trouble paying your heating and electricity bill?: No Do you have trouble taking care of your child, family member or friend?: No Do you have trouble with day-to-day activities such as bathing, preparing meals, shopping, managing finances, etc.?: No Are you currently unemployed and looking for a job?: No Are you interested in more education?: No Please select the resources that you would like help with: None Currently or been in a relationship where the following occur: No concerns reported THRIVE Score: 0 AUDIT C Alcohol Use Questionnaire (AUDIT-C) 1. How often do you have a drink containing alcohol?: Monthly or less 2. How many drinks containing alcohol do you have on a typical day when you are drinking?: 1 or 2 3. How often do you have six or more drinks on one occasion?: Never Total Score: 1 ANABELL-7 AMB Questionnaire ANABELL-7 Date ANABELL - 7 assessed: 10/07/23 Feeling nervous, anxious, or on edge: 0 = Not at all Not being able to stop or control worryin = Not at all Worrying too much about different things: 0 = Not at all Trouble relaxin = Not at all Being so restless that it is hard to sit still: 0 = Not at all Becoming easily annoyed or irritable: 0 = Not at all Feeling afraid as if something awful might happen: 0 = Not at all Total ANABELL-7 score (0-4 normal; 5-9 mild; 10-14 moderate; 15-21 severe): 0 Source: Developed by Drs. South Johnson, Alisson Fuentes, Yannick Morfin and colleagues, with an educational jef from [employer]. Review of Systems Const Denies chills, Denies fatigue, Denies fever(s), Denies headache(s) and Denies weakness ENT Denies dizziness and Denies headache(s) Card Denies dyspnea Resp Denies cough, Denies dyspnea, Denies wheezing and Denies other (shortness of breath) Musc Denies numbness and Denies tingling Neuro Denies dizziness, Denies headache(s), Denies numbness, Denies tingling and Denies weakness Psych Denies anxiety and Denies depression Endo Denies fatigue Aller/Immun Denies wheezing Physical exam (Primary Care) Vital Signs: Last Vital Signs Temp 98.0 F 09/05/24 11:38 Pulse 65 09/05/24 11:38 Resp 14 09/05/24 11:38 BP 120/60 09/05/24 11:38 Pulse Ox 97 09/05/24 11:38 Oxygen Delivery Method Room Air 09/05/24 11:38 BMI result Body Mass Index 29.3 Tobacco/Smoking Status: Tobacco use Status Tobacco use date assessed 10/07/23 09/05/24 11:30 Patient Tobacco Use Status Former Tobacco user 09/05/24 11:30 e-Cigarette/Vaping Use Never Used 09/05/24 11:30 PHQ-9: PHQ-9 Score PHQ-9: Total score 0 09/05/24 11:33 Thrive Assessment: Date of Thrive Assessment Date Thrive assessed 05/29/24 09/05/24 11:30 Currently or been in a relationship where the following occur: No concerns reported Const General: well developed; No acute distress Nutritional Appearance: well nourished Orientation/consciousness: patient oriented x3 HENMT Head: Yes normocephalic and Yes atraumatic Eyes General: appearance normal, both eyes and all related structures Pupils: Equal, round and reactive pupils present EOM: EOMs intact bilaterally Resp Effort & Inspection: normal respiratory effort Auscultation: clear to auscultation bilaterally Cardio Rate: regular rate Rhythm: regular rhythm Heart sounds: S1 normal heart sound present, S2 normal heart sound present, no gallops, no murmurs and no rubs Neuro General: patient oriented x3 and gait normal Cranial nerves: Yes Equal, round and reactive pupils present Psych Affect: normal affect Coding Level of Care Code Est Pt Level 4 (66893) Diagnoses Primary hypertension I10 Hypertension type: primary hypertension Chronic renal failure N18.9 CAD (coronary artery disease) I25.10 Thrombocytopenia D69.6 Assessment & Plan Assessment & Plan (1) Hypertension: Code(s): I10 - Essential (primary) hypertension Category: Medical Qualifiers: Hypertension type: primary hypertension Qualified Code(s): I10 - Essential (primary) hypertension Plan: Blood?pressure?is?controlled.??Goal?is?less?than?130/90 Continue?current?medication (2) Chronic renal failure: Code(s): N18.9 - Chronic kidney disease, unspecified Category: Medical Plan: Creatinine?level?and?GFR?are?stable Continue?good?hydration Follow-up?with?nephrology?as?recommended (3) CAD (coronary artery disease): Code(s): I25.10 - Atherosclerotic heart disease of eagle coronary artery without angina pectoris Category: Medical Plan: Stable Follow-up?with?Dr. Sinha as?recommended (4) Thrombocytopenia: Code(s): D69.6 - Thrombocytopenia, unspecified Category: Medical Plan: Chronic?thrombocytopenia.??Followed?by?[facility] [place] [facility]?Hematology-Oncology Will?continue?to?monitor She?has?not?ointment?for?follow-up in?a?year. Orders: Orders Comprehensive [place]. Panel Fast Today I10 - Essential (primary) hypertension, Z00.00 - Encounter for general adult medical examination without abnormal findings Complete Blood Count Auto Diff Today D69.6 - Thrombocytopenia, unspecified, Z00.00 - Encounter for general adult medical examination without abnormal findings Lipid Panel Today E78.5 - Hyperlipidemia, unspecified, Z00.00 - Encounter for general adult medical examination without abnormal findings TSH reflex Free T4 Today I25.10 - Atherosclerotic heart disease of eagle coronary artery without angina pectoris, Z00.00 - Encounter for general adult medical examination without abnormal findings Microalbumin, Random (w Creat) Today I10 - Essential (primary) hypertension Hemoglobin A1c Today R73.01 - Impaired fasting glucose UA and rflx microscopic Today I10 - Essential (primary) hypertension, Z00.00 - Encounter for general adult medical examination without abnormal findings
[2024-09-05 11:38] VITALS: BP 120/60; PULSE 65; RESP 14; TEMP 36.7; O2SAT 97; BMI 29.3
--- OUTSIDE RECORDS SUMMARY | 2024-09-05 14:28 | XMS_ITS | Clinical Summary ---
Author Organization [facility] Address [address] [facility] [address] [place] [address] Phone Care Team Providers Care Television Installer Helper Name Role Phone Dhiraj Cano MD Primary Care Provider Allergies No known active allergies Medications atorvastatin [...] mouth 2 (two) times a day Active [place]-3 Fatty Acids (Fish Oil Burp-Less) 1200 MG [...] age to complete this topic Insurance MEDICARE [place]IC[place] Care Teams Television Installer Helper Relationship Specialty Start Date End Date Dhiraj Cano MD [address] [place] [address] [place] [id number] PCP - General 07/15/20
== END 2024-09-05 12:13 | disposition home or self-care (01) ==
PROVIDERS: PCP Family Medicine; Visit Provider Family Medicine
DX: I12.9 Hypertensive chronic kidney disease with stage 1 through stage 4 chronic kidney disease, or unspecified chronic kidney disease (principal); N18.9 Chronic kidney disease, unspecified; I25.10 Atherosclerotic heart disease of native coronary artery without angina pectoris; D69.6 Thrombocytopenia, unspecified

== ENCOUNTER → 2024-09-05 11:26 | Outpatient (BNVA) | payer MEDICARE, OTHER, SELFPAY | PROVIDERS: PCP Family Medicine; Visit Provider Family Medicine | DX: I12.9 Hypertensive chronic kidney disease with stage 1 through stage 4 chronic kidney disease, or unspecified chronic kidney disease (principal); N18.9 Chronic kidney disease, unspecified; I25.10 Atherosclerotic heart disease of native coronary artery without angina pectoris; D69.6 Thrombocytopenia, unspecified | CPT/HCPCS: 99212 ==

== ENCOUNTER 2024-10-10 13:39 | Outpatient (REF) | payer MEDICARE, OTHER, SELFPAY ==
--- OUTSIDE RECORDS SUMMARY | 2024-10-10 16:38 | XMS_ITS | Clinical Summary ---
Author Organization [facility] Address [address] [facility] [address] [place] [address] Phone Care Team Providers Care Ocean Transportation Intermediary Name Role Phone Dhiraj Cano MD Primary Care Provider [phone] Allergies No known active allergies Medications atorvastatin [...] mouth 2 (two) times a day Active [place]-3 Fatty Acids (Fish Oil Burp-Less) 1200 MG [...] of 2 - PCV) 1951 Influenza Vaccine (Season Ended) 2025 Hepatitis B Vaccine Aged Out No longe r eligible based on patient's age to complete this topic Insurance MEDICARE [place]IC[place] Care Teams Ocean Transportation Intermediary Relationship Specialty Start Date End Date Dhiraj Cano MD [address] [place] [address] [place] [id number] PCP - General 07/15/20
--- OUTSIDE RECORDS SUMMARY | 2024-10-10 16:38 | XMS_ITS | Encounter Summary ---
Author Organization [employer] Address [address] [place] [address] Care Team Providers Care Low Heel Builder Name Role Phone Dhiraj Cano MD Primary Care Provider [phone] Reason for Visit * Reason Comments Follow-up Encounter Details Date Type Department Care Team (Late st Contact Info) Description 10/09/2024 1:30 PM EDT Office Visit [facility] [address] [place] [id number] Syed Gutierrez MD [address] [place] [address] [address] [place] [address] Coronary artery disease, unspecified vessel or lesion type, unspecified whether angina present, unspecified whether [place] or transplanted heart (Primary Dx) Social History Tobacco Use Types Packs/Day Years Used Date Smoking Tobacco: Former Cigarettes Q uit: 05/05/1974 Smokeless Tobacco: Never Alcohol Use Standard Drinks/Week Comments Not Currently 0 (1 standard drink = 0.6 oz pur e alcohol) occasional Comments Unknown Sex and Gender Information Value Date Recorded Sex Assigned at Not on file Legal Sex Female 10:59 PM EST Gender Identity Not on file Sexual Orientation Not on file documented as of this encounter Last Filed Vital Signs Vital Sign Reading Time Taken Comments Blood Pressure 112/70 10/09/2024 2:08 PM EDT Pulse 56 10/09/2024 2:08 PM EDT Temperature - - Respiratory Rate - - Oxygen Saturation 98% 10/09/2024 2:08 PM EDT Inhaled Oxygen Concentration - - Weight 66.2 kg (146 lb) 10/09/2024 2:08 PM EDT Height 149.9 cm (4' 11 ) 10/09/2024 2:08 PM EDT Body Mass Index 29.49 10/09/2024 2:08 PM EDT documented in this encounter Progress Notes * Syed Gutierrez MD - 10/09/2024 1:30 PM EDT Images from the original note were not included. [facility] CONSULT REQUESTED BY: Dr Cano PCP: Dhiraj Cano MD HPI: Eileen Garcia is a 79-year-old very remote history coronary disease status post acute myocardial infarction in the year 1999 with a stent placed to the midportion of the totally occluded right coronary artery. No other disease was identified at that time. She has had no chest pain pressure shortnessof breath PND orthopnea. Her primary care physician gets her cholesterol checked at [facility]. No recent upper profile that she did for me show total Raymundo 133 with an LDL of 53 Patient said no chest pain pressure shortness breath PND orthopnea. She was taken off lisinopril due to CKD type III and is now on Jardiance ACTIVE MEDICATIONS: Outpatient Medications Marked as Taking for the 10/09/24 encounter (Office Visit) with Syed Gutierrez MD Medication Sig Dispense Refill aspirin 81 mg EC tablet Take 1 tablet (81 mg total) by mouth 1 (one) time each day. atorvastatin (LIPITOR) 40 mg tablet TAKE 1 TABLET BY MOUTH EVERY DAY 90 tablet 1 calcium carbonate/vitamin D3 (CALCIUM+D ORAL) Take 1 tablet by mouth 2 (two) times a day. coenzyme Q-10 (Co Q-10) 100 mg capsule Take 3 capsules (300 mg total) by mouth 1 (one) time each day. empagliflozin (Jardiance) 10 mg tablet Take 0.5 tablets (5 mg total) by mouth 1 (one) time each dayin the morning. MAGNESIUM CITRATE ORAL Take 400 mg by mouth 1 (one) time each day. metoprolol tartrate (LOPRESSOR) 25 mg tablet Take 1 tablet (25 mg total) by mouth 2 (two) times a day. niacin (NIASPAN) 750 mg CR tablet Take 2 tablets (1,500 mg total) by mouth at bedtime. Do not crush, chew, or split. omega 9-tkd-iov-fish oil (Fish OiL) 360-1,200 mg capsule,delayed release(DR/EC) Take 1 capsule by mouth 1 (one) time each day. polyethylene glycol 3350 (MIRALAX ORAL) Take by mouth if needed. PAST MEDICAL HISTORY: There is no problem list on file for this patient. ALLERGIES: No Known Allergies FAMILY HISTORY: No family history on file. SOCIAL HISTORY: Social History Tobacco Use Smoking status: Former Current packs/day: 0.00 Types: Cigarettes Quit date: 05/05/1974 Years since quittin.4 Smokeless tobacco: Never Substance Use Topics Alcohol use: Not Currently Comment: occasional REVIEW OF SYSTEMS: Review of Systems Constitutional: Negative. HENT: Negative. Eyes: Negative. Cardiovascular: Negative. Respiratory: Negative. Endocrine: Negative. Hematologic/Lymphatic: Negative. Skin: Negative. Musculoskeletal: Negative. Gastrointestinal: Negative. Genitourinary: Negative. Neurological: Negative. Psychiatric/Behavioral: Negative. Allergic/Immunologic: Negative. All other systems reviewed and are negative. PHYSICAL EXAM: Vitals: 10/09/24 1408 Pulse: 56 SpO2: 98% Weight: 66.2 kg (146 lb) Height: 1.499 m (59 ) Physical Exam Constitutional: Appearance: Normal appearance. HENT: Head: Normocephalic and atraumatic. Nose: Nose normal. Eyes: Extraocular Movements: Extraocular movements intact. Pupils: Pupils are equal, round, and reactive to light. Cardiovascular: Rate and Rhythm: Regular rhythm. Pulmonary: Breath sounds: Normal breath sounds. Abdominal: General: Abdomen is flat. Bowel sounds are normal. Palpations: Abdomen is soft. Musculoskeletal: General: Normal range of motion. Cervical back: Normal range of motion and neck supple. Skin: General: Skin is warm and dry. Neurological: General: No focal deficit present. Mental Status: She is alert. Psychiatric: Mood and Affect: Mood normal. EKG: Encounter Date: 10/09/24 ECG 12 lead Result Value Ventricular Rate ECG 53 Atrial Rate 53 P-R Interval 172 QRS Duration 76 Q-T Interval 420 QTc 394 P Wave [place] 35 R Gary 32 T Gary 22 ECG Interpretation Sinus bradycardia Otherwise normal ECG No previous ECGs available *Note: Due to a large number of results and/or encounters for the requested time period, some results have not been displayed. A complete set of results can be found in Results Review. TESTING: ASSESSMENT/PLAN: Assessment & Plan Coronary artery disease, unspecified vessel or lesion type, unspecified whether angina present, unspecified whether [place] or transplanted heart Patient remote history of angioplasty of the right coronary and acute ischemic setting. No other disease identified at the time. Over the years I have known her she has had no recurrent anginal symptoms no abnormal stress test. She has been pain-free. Risk factors are well modified at this time. She has had no symptoms whatsoever. Will continue with this factor modification she understands need to contact us if she develops any changes in her symptom pattern we will see her back in a year if she remains stable Orders: ECG 12 lead The above note was prepared with the help of voice recognition software. Please excuse any grammatical or spelling errors that may have occurred The [facility] team will continue to co-manage this patient following the plan of care as established by my initial visit and as per AHA guidelines for ongoing management and surveillance of Coronary ArteryDisease This will include medication titration, initiation of appropriate medications and further ti tration, and diagnostic studies to manage this disease process. documented in this encounter Plan of Treatment Not on file documented as of this encounter Procedures Procedure Name Priority Date/Time Associated Diagnosis Comments ECG 12-LEAD Routine 10/09/2024 2:19 PM EDT Coronary artery disease, unspecified vessel or lesion type, unspecified whether angina present, unspecified whether [place] or transplanted heart documented in this encounter Results * ECG 12 lead (10/09/2024 2:19 PM EDT) Ventricular Rate ECG 53 BPM GEMUSE Atrial Rate 53 BPM GEMUSE P-R Interval 172 ms GEMUSE QRS Duration 76 ms GEMUSE Q-T Interval 420 ms GEMUSE QTc 394 ms GEMUSE P Wave [place] 35 degrees GEMUSE R [place] 32 degrees GEMUSE T [place] 22 degrees GEMUSE ECG Interpretation Sinus bradycardia Otherwise normal ECG No previous ECGs available Confirmed by Joel GUTIERREZ JAMES ([id number]) on 10/09/2024 3:33:19 PM GEMUSE 10/09/2024 2:19 PM EDT 10/09/2024 3:33 PM EDT Syed Gutierrez MD ECG ORDERABLES Final Result GEMUSE documented in this encounter Visit Diagnoses Diagnosis Coronary artery disease, unspecified vessel or lesion type, unspecified whether angina present, unspecified whether [place] or transplanted heart- Primary documented in this encounter Historical Medications * This list may reflect changes made after this encounter. polyethylene glycol 3350 (MIRALAX ORAL) Take by mouth if needed. coenzyme Q-10 (Co Q-10) 100 mg capsule Take 3 capsules (300 mg total) by mouth 1 (one) time each day. MAGNESIUM CITRATE ORAL Take 400 mg by mouth 1 (one) time each day. omega 4-dcr-flz-fish oil (Fish OiL) 360-1,200 mg capsule,delayed release(DR/EC) Take 1 capsule by mouth 1 (one) time each day. aspirin 81 mg EC tablet Take 1 tablet (81 mg total) by mouth 1 (one) time each day. calcium carbonate/vitamin D3 (CALCIUM+D ORAL) Take 1 tablet by mouth 2 (two) times a day. metoprolol tartrate (LOPRESSOR) 25 mg tablet Take 1 tablet (25 mg total) by mouth 2 (two) times a day. empagliflozin (Jardiance) 10 mg tablet Take 0.5 tablets (5 mg total) by mouth 1 (one) time each day in the morning. niacin (NIASPAN) 750 mg CR tablet Take 2 tablets (1,500 mg total) by mouth at bedtime. Do not crush, chew, or split. added in this encounter Care Teams Low Heel Builder Relationship Specialty Start Date End Date Dhiraj Cano MD [address] [place] [address] Dr Rosaura [place] PCP - General 07/01/12 documented as of this encounter
--- OUTSIDE RECORDS SUMMARY | 2024-10-10 16:38 | XMS_ITS | Clinical Summary ---
Author Organization [facility] [employer] Address [address] [address] Phone Care Team Providers Care Bundles Hanger Name Role Phone Dhiraj Cano MD Primary Care Provider Allergies No known active allergies Medications atorvastatin (LIPITOR) 40 mg tablet TAKE 1 TABLET BY MOUTH EVERY DAY 90 tablet 1 05/24/2024 Active niacin (NIASPAN) 750 mg CR tablet Take 2 tablets (1,500 mg total) by mouth at bedtime. Do not crush, chew, or split. Active empagliflozin (Jardiance) 10 mg tablet Take 0.5 tablets (5 mg total) by mouth 1 (one) time each day in the morning. Active metoprolol tartrate (LOPRESSOR) 25 mg tablet Take 1 tablet (25 mg total) by mouth 2 (two) times a day. Active calcium carbonate/vitam in D3 (CALCIUM+D ORAL) Take 1 tablet by mouth 2 (two) times a day. Active aspirin 81 mg EC tablet Take 1 tablet (81 mg total) by mouth 1 (one) time each day. Active omega 1-vnn-ugs-fish oil (Fish OiL) 360-1,200 mg capsule,delayed release(DR/EC) Take 1 capsule by mouth 1 (one) time each day. Active MAGNESIUM CITRATE ORAL Take 400 mg by mouth 1 (one) time each day. Active coenzyme Q-10 (Co Q-10) 100 mg capsule Take 3 capsules (300 mg total) by mouth 1 (one) time each day. Active polyethylene glycol 3350 (MIRALAX ORAL) Take by mouth if needed. Active Encounters Date Type Department Care Team Description 10/09/2024 1:30 PM EDT Office Visit [facility] [address] [place] [address] Syed Gutierrez MD Coronary artery disease, unspecified vessel or lesion type, unspecified whether angina present, unspecified whether [place] or transplanted heart (Primary Dx) from Last 3 Months Social History Tobacco Use Types Packs/Day Years [...] on file Sexual Orientation Not on file Obstetrics History Last Filed Vital Signs Vital Sign Reading [...] Mass Index 29.49 10/09/2024 2:08 PM EDT Plan of Treatment Health Maintenance Due Date Last Done Comments Zoster Vaccines (1 of 2) 1994 RSV Immunization Adult Patients (1 - 1-dose 75+ series) 2019 Depression Screening 06/13/2022 Falls Risk Assessment 06/13/2022 Medicare Annual Wellness Visit 06/13/2022 Osteoporosis Screening (Bone Density Screening) 06/13/2022 Social Influencers of Health Screening 06/13/2022 Hypertension/CHF/CAD Annual BMP Blood Test 06/14/2022 COVID-19 Vaccine ( season) 2024 04/28/2021, 09/05/2020, 08/15/2020 Influenza Vaccine (Season Ended) 2025 06/09/2021, 04/02/2020, 05/03/2019, Additional history exists DTaP,Tdap,and Td Vaccines (2 - Td or Tdap) 10/26/2027 10/25/2017 Cholesterol Screening (Lipid Panel) 10/02/2029 10/02/2024 Pneumococcal Vaccine: 50+ Years Completed 04/14/2019, 01/28/2018 HIB Vaccines Aged Out No longer eligi ble based on patient's age to complete this topic HPV Vaccines Aged Out No longer eligi ble based on patient's age to complete this topic Hepatitis A Vaccines Aged Out No long er eligible based on patient's age to complete this topic Hepatitis B Vaccines Aged Out No long er eligible based on patient's age to complete this topic IPV Vaccines Aged Out No longer eligi ble based on patient's age to complete this topic MMR Vaccines Aged Out No longer eligi ble based on patient's age to complete this topic Meningococcal ACWY Vaccine Aged Out N o longer eligible based on patient's age to complete this topic Meningococcal B Vaccine Aged Out No l onger eligible based on patient's age to complete this topic RSV Immunization Patients Under 20 months Aged Out No longer eligible based on patient's age to complete this topic Varicella Vaccines Aged Out No longer eligible based on patient's age to complete this topic Procedures Procedure Name Priority Date/Time Associated Diagnosis Comments ECG 12-LEAD Routine 10/09/2024 2:19 PM EDT Coronary artery disease, unspecified vessel or lesion type, unspecified whether angina present, unspecified whether [place] or transplanted heart LIPID PANEL Routine 10/02/2024 8:50 AM EDT Mixed hyperlipidemia from Last 3 Months Results * ECG 12 lead (10/09/2024 2:19 PM EDT) Ventricular Rate ECG 53 BPM GEMUSE Atrial Rate 53 BPM GEMUSE P-R Interval 172 ms GEMUSE QRS Duration 76 ms GEMUSE Q-T Interval 420 ms GEMUSE QTc 394 ms GEMUSE P Wave [place] 35 degrees GEMUSE R [place] 32 degrees GEMUSE T [place] 22 degrees GEMUSE ECG Interpretation Sinus bradycardia Otherwise normal ECG No previous ECGs available Confirmed by Joel GUTIERREZ JAMES ([id number]) on 10/09/2024 3:33:19 PM GEMUSE 10/09/2024 2:19 PM EDT 10/09/2024 3:33 PM EDT us Syed Gutierrez MD ECG ORDERABLES Final Result Performing Organization Address City/[facility] Co de Phone Number GEMUSE * Lipid panel (10/02/2024 8:50 AM EDT) Cholesterol Total 133 100 - 199 mg/dL [facility] Triglycerides 67 0 - 149 mg/dL [facility] HDL Cholesterol 66 >39 mg/dL [facility] VLDL Cholesterol Calculated 14 5 - 40 mg/dL [facility] LDL Chol Calc (NIH) 53 0 - 99 mg/dL [facility] 1 Blood Venous blood specimen / Unknown 10/02/2024 8:50 AM EDT 10/02/2024 Narrative [facility] 1 - 10/03/2024 1:06 AM EDT Performed at: ??01 - [facility] [address] ??[id number] Hot Strip Finisher: Charis Watson MD, Phone: ??[phone] us Syed Gutierrez MD LAB BLOOD ORDERABLES Final Res ult Performing Organization Address City/[facility]/ZIP Co de Phone Number [facility] 1 from Last 3 [address] [place] [address] MEDICARE Care Teams Bundles Hanger Relationship Specialty Start Date End Date Dhiraj Cano MD [address] [place] [address] Dr Rosaura [place] PCP - General 07/01/12
[2024-10-10 18:55] LABS: Anion Gap 13 (12-20); Blood Urea Nitrogen 33 mg/dL (9-16); Carbon Dioxide 26 mmol/L (22-29); Chloride 107 mmol/L (96-108); Estimated Glomerular Filt Rate 24; Potassium 4.5 mmol/L (3.3-5.1); Sodium 141 mmol/L (135-145)
== END 2024-10-10 13:40 | disposition home or self-care (01) ==
LOC: HO.WFDLDS 13:39
PROVIDERS: Visit Provider Internal Medicine Nephrology
DX: N18.31 Chronic kidney disease, stage 3a (principal); I10 Essential (primary) hypertension
CPT/HCPCS: 36415; 80051; 82565; 84520

== ENCOUNTER 2024-10-13 11:17 | Outpatient (AMB) | payer MEDICARE, OTHER, SELFPAY ==
--- NOTE | 2024-10-13 11:50 | HO.NEPHOV_ITS ---
Vital Signs 10/13/24 11:51 Height 4 ft 11 in Weight 144 lb 6 oz BMI 29.2 BP 116/58 L Blood Pressure Location Lt brachial Position Sitting Pulse 60 Pulse Source Pulse Oximeter Pulse Oximetry (%) 96 Oxygen Delivery Method Room Air Intake Visit Reasons: 3 [id number] Intake Note: Patient will like to speak to you about Jardiance. Bowling Floor Desk Clerk Required: No Accompanied by: Self / Same As Patient Allergies No Known Allergies Allergy (Verified 10/13/24 11:53) Do you need a note to return to daycare/school/sports/work: No HPI Comments Details: Eileen was seen in follow-up of her chronic kidney disease. She is known to have coronary artery disease, TIA and hypertension but no congestive heart failure. Recently her serum creatinine has gone up and her ISMA-inhibitor dosage has been adjusted. Her renal ultrasound in the past showed a renal cyst per never had Doppler of renal arteries. She has history of trace blood in the urine and has seen Urology. She denies chest pain, shortness of breath, proximal nocturnal dyspnea, orthopnea, pedal edema or urinary symptoms. She avoids nonsteroidal anti-inflammatory medications. She tries to maintain good hydration and consume a low-sodium diet. She has seen Hematology. Her abdominal USS was unremarkable. She had an ECHO which is OK as per the patient. She feels well [facility] Medical History No pertinent past medical history Surgical History History of breast surgery History of surgical procedure on mouth Social History Household Members: Spouse Housing: House Alcohol intake: current Alcohol type: wine Patient Tobacco Use Status: Former Tobacco user e-Cigarette/Vaping Use: Never Used Second Hand Smoke Exposure: No service: No Current occupational status: retired Current occupational exposures/hazards: No Gender identity: Female Cognitive needs: No Hearing needs: No Vision needs: No (glasses) Review of Systems Const All systems reviewed & are unremarkable except as noted in HPI and below Physical Exam Vital Signs: Last Vital Signs Pulse 60 10/13/24 11:51 BP 116/58 L 10/13/24 11:51 Pulse Ox 96 10/13/24 11:51 Oxygen Delivery Method Room Air 10/13/24 11:51 BMI result Body Mass Index 29.2 Const General: comfortable and no acute distress Orientation/consciousness: patient oriented x3 HEENT Head: Yes normocephalic Mouth: Normal oral and palatal mucosa present Eyes EOM: EOMs intact bilaterally Neck Neck: Yes supple Resp Auscultation: clear to auscultation bilaterally Cardio Jugular venous distension: no JVD Rate: regular rate GI Palpation (GI): Soft to palpation Auscultation: normal bowel sounds General: Yes no CVA tenderness Back/Spine/Pelvis Back: no CVA tenderness Skin General skin exam: no rashes or lesions noted Neuro General: patient oriented x3 and moves all extremities Extrem General: Yes no pedal edema Results Reviewed Nephrology Results: Hgb 10.7 g/dl (12.0-16.0) L 08/31/24 WBC 5.8 X10*3/uL (4.8-10.8) 08/31/24 Plt Count 73 X10*3/uL (160-400) L 08/31/24 Sodium 141 mmol/L (135-145) 10/10/24 Potassium 4.5 mmol/L (3.3-5.1) 10/10/24 Chloride 107 mmol/L (96-108) 10/10/24 Carbon Dioxide 26 mmol/L (22-29) 10/10/24 BUN 33 mg/dL (9-16) H 10/10/24 Creatinine 1.97 mg/dL (0.5-1.4) H 10/10/24 Calcium 9.7 mg/dL (8.4-10.2) 08/31/24 Urine Creatinine 84.92 mg/dL 06/05/24 Assessment & Plan Assessment & Plan (1) Hypertension: Code(s): I10 - Essential (primary) hypertension Category: Medical Qualifiers: Hypertension type: primary hypertension Qualified Code(s): I10 - Essential (primary) hypertension (2) CKD (chronic kidney disease) stage 3, GFR 30-59 ml/min: Code(s): N18.30 - Chronic kidney disease, stage 3 unspecified Category: Medical Qualifiers: Chronic kidney disease stage 3 subtype: stage 3a (GFR 45-59) Qualified Code(s): N18.31 - Chronic kidney disease, stage 3a Abe Arellano has chronic kidney disease due to vascular disease. 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 Her serum creatinine is marginally better after I stopped her ACEI. Her blood pressure is at goal. She has no orthostasis. She should continue Jardiance 5 mg daily. She avoids nonsteroidal anti-inflammatories. Her urine output is good. I did not make any medication changes at this visit. Follow-up lab data ordered. Answered all questions. Follow-up given Orders: Orders Electrolytes 4 Months I10 - Essential (primary) hypertension, N18.31 - Chronic kidney disease, stage 3a Creatinine 4 Months I10 - Essential (primary) hypertension, N18.31 - Chronic kidney disease, stage 3a Blood Urea Nitrogen 4 Months I10 - Essential (primary) hypertension, N18.31 - Chronic kidney disease, stage 3a Coding Level of Care Code Est Pt Level 4 (52484) Diagnoses Primary hypertension I10 Hypertension type: primary hypertension Stage 3a chronic kidney disease N18.31 Chronic kidney disease stage 3 subtype: stage 3a (GFR 45-59)
[2024-10-13 11:51] VITALS: BP 116/58; PULSE 60; O2SAT 96; BMI 29.2
--- OUTSIDE RECORDS SUMMARY | 2024-10-13 12:17 | XMS_ITS | Encounter Summary ---
Author Organization [place] [address] Care Team Providers Care Customer Service Rep Name Role Phone Dhiraj Cano MD Primary Care Provider [phone]- [phone] Reason for Visit * Reason Comments Follow-up Encounter Details Date Type Department Care Team (Late st Contact Info) Description 10/09/2024 1:30 PM EDT Office Visit [facility] [address] [place] [address] Sophia Gutierrez MD [address] [place] [address] [address] [place] [address] Coronary artery disease, unspecified vessel or lesion type, unspecified whether angina present, unspecified whether [place] or transplanted heart (Primary Dx) Social History [...] documented in this encounter Progress Notes * Sophia Gutierrez MD - 10/09/2024 1:30 PM EDT Images from the original note were not included. [facility] CONSULT REQUESTED BY: [...] care physician gets her cholesterol [facility]. No recent upper profile that she did for me show total Raymundo 133 with an LDL of 53 Patient said no chest pain pressure shortness breath PND orthopnea. She was taken off lisinopril due to CKD type III and is now on Jardiance ACTIVE MEDICATIONS: Outpatient Medications Marked as Taking for the 10/09/24 encounter (Office Visit) with Sophia Gutierrez MD Medication Sig Dispense Refill aspirin [...] Do not crush, chew, or split. omega 9-phw-bxe-fish oil (Fish OiL) 360-1,200 mg capsule,delayed release(DR/EC) [...] Q-T Interval 420 QTc 394 P Wave [place] 35 R Vici 32 T Vici 22 ECG Interpretation Sinus bradycardia Otherwise normal ECG No previous ECGs available *Note: Due to a large number of results and/or encounters for the requested time period, some results have not been displayed. A complete set of results can be found in Results Review. TESTING: ASSESSMENT/PLAN: Assessment & Plan Coronary artery disease, unspecified vessel or lesion type, unspecified whether angina present, unspecified whether [place] or transplanted heart Patient remote history of [...] type, unspecified whether angina present, unspecified whether [place] or transplanted heart documented in this encounter Results * ECG 12 lead (10/09/2024 2:19 PM EDT) Ventricular Rate ECG 53 BPM GEMUSE Atrial Rate 53 BPM GEMUSE P-R Interval 172 ms GEMUSE QRS Duration 76 ms GEMUSE Q-T Interval 420 ms GEMUSE QTc 394 ms GEMUSE P Wave [place] 35 degrees GEMUSE R [place] 32 degrees GEMUSE T [place] 22 degrees GEMUSE ECG Interpretation Sinus bradycardia Otherwise normal ECG No previous ECGs available Confirmed by Joel GUTIERREZ, SOPHIA ([id number]) on 10/09/2024 3:33:19 PM GEMUSE 10/09/2024 2:19 PM EDT 10/09/2024 3:33 PM EDT Sophia Gutierrez MD ECG ORDERABLES Final Result GEMUSE documented in this encounter Visit Diagnoses Diagnosis Coronary artery disease, unspecified vessel or lesion type, unspecified whether angina present, unspecified whether [place] or transplanted heart- Primary documented in this [...] mouth 1 (one) time each day. omega 9-pze-uvw-fish oil (Fish OiL) 360-1,200 mg capsule,delayed release(DR/EC) [...] split. added in this encounter Care Teams Customer Service Rep Relationship Specialty Start Date End Date Dhiraj Cnao MD [address] [place] [address] Dr Rosaura [place] PCP - General 07/01/12 documented as of this encounter
--- OUTSIDE RECORDS SUMMARY | 2024-10-13 12:17 | XMS_ITS | Clinical Summary ---
Author Organization [facility] [employer] Address [address] [address] Phone Care Team Providers Care Dishwasher Name Role Phone Dhiraj Cano MD Primary [...] 1 (one) time each day. Active omega 3-asz-jwv-fish oil (Fish OiL) 360-1,200 mg capsule,delayed release(DR/EC) [...] Description 10/09/2024 1:30 PM EDT Office Visit [facility] [address] [facility] [address] [place] [address] Syed Gutierrez MD Coronary artery disease, unspecified vessel or lesion type, unspecified whether angina present, unspecified whether [place] or transplanted heart (Primary Dx) from Last [...] type, unspecified whether angina present, unspecified whether [place] or transplanted heart LIPID PANEL Routine 10/02/2024 8:50 AM EDT Mixed hyperlipidemia from Last 3 Months Results * ECG 12 lead (10/09/2024 2:19 PM EDT) Ventricular Rate ECG 53 BPM GEMUSE Atrial Rate 53 BPM GEMUSE P-R Interval 172 ms GEMUSE QRS Duration 76 ms GEMUSE Q-T Interval 420 ms GEMUSE QTc 394 ms GEMUSE P Wave [place] 35 degrees GEMUSE R [place] 32 degrees GEMUSE T [place] 22 degrees GEMUSE ECG Interpretation Sinus bradycardia Otherwise normal ECG No previous ECGs available Confirmed by Joel GUTIERREZ JAMES ([id number]) on 10/09/2024 3:33:19 PM GEMUSE 10/09/2024 2:19 PM EDT 10/09/2024 3:33 PM EDT us Syed Gutierrez MD ECG ORDERABLES Final Result GEMUSE * Lipid panel (10/02/2024 8:50 AM EDT) Cholesterol Total 133 100 - 199 mg/dL [facility] 1 Triglycerides 67 0 - 149 mg/dL [facility] 1 HDL Cholesterol 66 >39 mg/dL [facility] 1 VLDL Cholesterol Calculated 14 5 - 40 mg/dL [facility] 1 LDL Chol Calc ([facility]) 53 0 - 99 mg/dL [facility] 1 Blood Venous blood specimen / Unknown 10/02/2024 8:50 AM EDT 10/02/2024 Narrative [facility] 1 - 10/03/2024 1:06 AM EDT Performed at: ??01 - [facility] [address] ??[id number] Level Vial Marker: Charis Watson MD, Phone: ??[phone] us Syed Gutierrez MD LAB BLOOD ORDERABLES Final Res ult Performing Organization Address City/[facility]/ZIP Co de Phone Number [facility] 1 from Last 3 Months Insurance MEDICARE Care Teams Dishwasher Relationship Specialty Start Date End Date Dhiraj Cano MD [address] [place] [address] Dr Rosaura [place] PCP - General 07/01/12
--- OUTSIDE RECORDS SUMMARY | 2024-10-13 12:17 | XMS_ITS | Clinical Summary ---
Author Organization [facility] Address [address] [facility] [address] [place] [address] Phone Care Team Providers Care Main Line Station Engineer Name Role Phone Dhiraj Cano MD Primary [...] mouth 2 (two) times a day Active [place]-3 Fatty Acids (Fish Oil Burp-Less) 1200 MG [...] Osteopenia 12/18/2021 12/18/2021 Psoriasis 12/18/2021 12/18/2021 Immunizations Immunization Administration Dates Next Due Pfizer SARS-COV-2 09/05/2020,08/15/2020 [...] Due Date Last Done Comments Pneumococcal Vaccine: 50+ Ye ars (1 of 2 - PCV) 1951 Influenza Vaccine (Season Ended) 2025 Hepatitis B Vaccine Aged Out No longe r eligible based on patient's age to complete this topic Insurance Medicare [place] Care Teams Main Line Station Engineer Relationship Specialty Start Date End Date Dhiraj Cano MD [address] [place] [address] [place] [id number] PCP - General 07/15/20
== END 2024-10-13 12:13 | disposition home or self-care (01) ==
LOC: HO.HKA 11:18
PROVIDERS: PCP Family Medicine; Visit Provider Internal Medicine Nephrology
DX: I10 Essential (primary) hypertension (principal); N18.31 Chronic kidney disease, stage 3a
CPT/HCPCS: 99214

== ENCOUNTER → 2024-10-13 11:17 | Outpatient (BNVA) | payer MEDICARE, OTHER, SELFPAY | PROVIDERS: PCP Family Medicine; Visit Provider Internal Medicine Nephrology | DX: I12.9 Hypertensive chronic kidney disease with stage 1 through stage 4 chronic kidney disease, or unspecified chronic kidney disease (principal); N18.31 Chronic kidney disease, stage 3a | CPT/HCPCS: 99212 ==

== ENCOUNTER 2024-12-20 09:04 | Outpatient (REF) | payer MEDICARE, OTHER, SELFPAY ==
--- OUTSIDE RECORDS SUMMARY | 2024-12-20 09:45 | XMS_ITS | Clinical Summary ---
Author Organization [facility] Address [address] [place] [address] Phone Care Team Providers Care Ordnance Technician Name Role Phone Dhiraj Cano MD Primary Care Provider Allergies No known active allergies Medications niacin (NIASPAN) 750 mg CR tablet Take 2 tablets (1,500 mg total) by mouth at bedtime. Do not crush, chew, or split. Active empagliflozin (Jardiance) 10 mg tablet Take 0.5 tablets (5 mg total) by mouth 1 (one) time each day in the morning. Active calcium carbonate/flaco min D3 (CALCIUM+D ORAL) Take 1 tablet by mouth 2 (two) times a day. Active aspirin 81 mg EC tablet Take 1 tablet (81 mg total) by mouth 1 (one) time each day. Active omega 2-rja-vbv-fish oil (Fish OiL) 360-1,200 mg capsule,delaye d release(DR/EC) Take 1 capsule by mouth 1 (one) time each day. Active MAGNESIUM CITRATE ORAL Take 400 mg by mouth 1 (one) time each day. Active coenzyme Q-10 (Co Q-10) 100 mg capsule Take 3 capsules (300 mg total) by mouth 1 (one) time each day. Active polyethylene glycol 3350 (MIRALAX ORAL) Take by mouth if needed. Active atorvastatin (LIPITOR) 40 mg tablet TAKE 1 TABLET BY MOUTH EVERY DAY 90 tablet 1 5 Active metoprolol tartrate (LOPRESSOR) 25 mg tabletIndicati ons:Atheroscle rotic heart disease of [place] coronary artery without angina pectoris TAKE 1 TABLET BY MOUTH TWICE A DAY 180 tablet 3 5 Active metoprolol tartrate (LOPRESSOR) 25 mg tablet Take 1 tablet (25 mg total) by mouth 2 (two) times a day. 025 Discontinued Encounters Date Type Department Care Team Description 10/09/2024 1:30 PM EDT Office Visit [facility] [address] [place] [address] Syed Gutierrez MD Coronary artery disease, unspecified vessel or lesion type, unspecified whether angina present, unspecified whether [place] or transplanted heart (Primary Dx) from Last [...] type, unspecified whether angina present, unspecified whether [place] or transplanted heart LIPID PANEL Routine 10/02/2024 8:50 AM EDT Mixed hyperlipidemia from Last 3 Months Results * ECG 12 lead (10/09/2024 2:19 PM EDT) Ventricular Rate ECG 53 BPM GEMUSE Atrial Rate 53 BPM GEMUSE P-R Interval 172 ms GEMUSE QRS Duration 76 ms GEMUSE Q-T Interval 420 ms GEMUSE QTc 394 ms GEMUSE P Wave [place] 35 degrees GEMUSE R [place] 32 degrees GEMUSE T [place] 22 degrees GEMUSE ECG Interpretation Sinus bradycardia Otherwise normal ECG No previous ECGs available Confirmed by Joel GUTIERREZ JAMES ([id number]) on 10/09/2024 3:33:19 PM GEMUSE 10/09/2024 2:19 PM EDT 10/09/2024 3:33 PM EDT us Syed Gutierrez MD ECG ORDERABLES Final Result GEMUSE * Lipid panel (10/02/2024 8:50 AM EDT) [facility] Cholesterol Total 133 100 - 199 mg/dL [facility] 1 Triglycerides 67 0 - 149 mg/dL [facility] 1 HDL Cholesterol 66 >39 mg/dL [facility] 1 VLDL Cholesterol Calculated 14 5 - 40 mg/dL [facility] 1 LDL Chol Calc ([facility]) 53 0 - 99 mg/dL [facility] 1 Blood Venous blood specimen / Unknown 10/02/2024 8:50 AM EDT 10/02/2024 Narrative [facility] 1 - 10/03/2024 1:06 AM EDT Performed at: 01 - [facility] [address] [id number] Process Improvement Engineer: Charis Watson MD, Phone: [phone] us Syed Gutierrez MD LAB BLOOD ORDERABLES Final Res ult [facility] 1 from Last 3 Months Insurance MEDICARE [employer] Care Teams Ordnance Technician Relationship Specialty Start Date End Date Dhiraj Cano MD [address] [place] [address] Dr Rosaura [place] PCP - General 07/01/12
[2024-12-20 11:40] LABS: Appearance Urine Clear; Color Urine Yellow; Glucose Urine UA 500 mg/dL (Negative); Leukocyte Esterase Urine Negative (Negative); Nitrite Urine Negative (Negative); Specific Gravity - Urine 1.015 (1.005-1.025); Urine Blood Negative (Negative); Urine Ketones Negative (Negative); Urine Protein Trace mg/dL (Neg-Trace)
[2024-12-20 11:41] LABS: MANUAL DIFF FLAG NO
[2024-12-20 11:52] LABS: Basophils Percent Auto 0.7 % (0-2); Eosinophils Absolute Auto 0.2 X10*3/uL (0.0-0.4); Eosinophils Percent Auto 4.1 % (0-4); Hematocrit 33.5 % (37.0-47.0); Hemoglobin 10.9 g/dl (12.0-16.0); Imm Gran Abs Auto 0.02 X10*3/uL (0.00-0.03); Imm Gran Pct Auto 0.4 % (0.0-0.4); Lymphocytes Absolute Auto 1.8 X10*3/uL (1.2-4.9); Lymphocytes Percent Auto 31.8 % (20-40); Mean Corpuscular HGB Conc 32.5 g/dl (31.0-35.0); Mean Corpuscular Hemoglobin 30.6 pg (27.0-33.0); Mean Corpuscular Volume 94.1 fL (80.0-98.0); Mean Platelet Volume 10.3 fL (9.4-12.3); Monocytes Absolute Auto 0.5 X10*3/uL (0.1-1.2); Neutrophils Absolute Auto 3.1 x10*3/uL (2.0-8.3); Red Blood Count 3.56 X10*6/uL (4.20-5.50); Red Cell Distribution Width 12.4 % (11.0-16.0); White Blood Count 5.6 X10*3/uL (4.8-10.8)
[2024-12-20 11:53] LABS: Platelet Count 62 X10*3/uL (160-400)
[2024-12-20 11:58] LABS: Estimated Average Glucose 117 mg/dL; Hemoglobin A1c % 5.7 % (<6.0)
[2024-12-20 12:17] LABS: Alanine Aminotransferase 20 U/L (0-31); Albumin Level 4.4 g/dL (3.5-5.0); Alkaline Phosphatase 65 U/L (39-117); Anion Gap 7 (12-20); Aspartate Amino Transferase 30 U/L (5-31); Bilirubin Total 0.6 mg/dL (0.0-1.0); Blood Urea Nitrogen 32 mg/dL (9-16); Calcium 9.6 mg/dL (8.4-10.2); Carbon Dioxide 27 mmol/L (22-29); Chloride 113 mmol/L (96-108); Cholesterol 131 mg/dL (<200); Estimated Glomerular Filt Rate 24; Glucose Fasting 95 mg/dL (60-99); HDL Cholesterol 66 mg/dL (>40); LDL Cholesterol Calculated 54 mg/dL (<100); Potassium 4.4 mmol/L (3.3-5.1); Sodium 143 mmol/L (135-145); Total Protein 6.5 g/dL (6.5-8.0); Triglycerides 59 mg/dL (<150)
[2024-12-20 12:19] LABS: Creatinine Urine 97.16 mg/dL; Microalbum/Creatinine Ratio Ur 48.3 ug/mg cr (<30)
[2024-12-20 12:36] LABS: TSH reflex Free T4 1.76 uIU/mL (0.32-4.0)
== END 2024-12-20 09:05 | disposition home or self-care (01) ==
LOC: HO.WFDLDS 09:04
PROVIDERS: Visit Provider Family Medicine
DX: Z00.00 Encounter for general adult medical examination without abnormal findings (principal); R73.01 Impaired fasting glucose; I25.10 Atherosclerotic heart disease of native coronary artery without angina pectoris; E78.5 Hyperlipidemia, unspecified; D69.6 Thrombocytopenia, unspecified; I10 Essential (primary) hypertension
CPT/HCPCS: 36415; 80053; 80061; 81003; 82043; 82570; 83036; 84443; 85025

== ENCOUNTER 2024-12-22 11:36 | Outpatient (AMB) | payer MEDICARE, OTHER, SELFPAY ==
--- OUTSIDE RECORDS SUMMARY | 2024-12-22 12:00 | XMS_ITS | Clinical Summary ---
Author Organization [facility] [employer] Address [address] [place] [address] Phone Care Team Providers Care Dust Operator Name Role Phone Dhiraj Cano MD Primary Care Provider Allergies No known active allergies Medications niacin (NIASPAN) 750 mg CR tablet Take 2 tablets (1,500 mg total) by mouth at bedtime. Do not crush, chew, or split. Active empagliflozin (Jardiance) 10 mg tablet Take 0.5 tablets (5 mg total) by mouth 1 (one) time each day in the morning. Active calcium carbonate/vitam in D3 (CALCIUM+D ORAL) Take 1 tablet by mouth 2 (two) times a day. Active aspirin 81 mg EC tablet Take 1 tablet (81 mg total) by mouth 1 (one) time each day. Active omega 5-bcx-cre-fish oil (Fish OiL) 360-1,200 mg capsule,delayed release(DR/EC) [...] BY MOUTH EVERY DAY 90 tablet 1 11/20/2024 Active metoprolol tartrate (LOPRESSOR) 25 mg tabletIndicatio ns:Atherosclero tic heart disease of [place] coronary artery without angina pectoris TAKE 1 TABLET BY MOUTH TWICE A DAY 180 tablet 3 11/22/2024 Active Encounters Date Type Department Care Team Description 10/09/2024 1:30 PM EDT Office Visit [facility] [address] [facility] [address] [place] [address] Syed Gutierrez MD Coronary artery disease, unspecified vessel or lesion type, unspecified whether angina present, unspecified whether [place] or transplanted heart (Primary Dx) from Last [...] type, unspecified whether angina present, unspecified whether [place] or transplanted heart LIPID PANEL Routine 10/02/2024 8:50 AM EDT Mixed hyperlipidemia from Last 3 Months Results * ECG 12 lead (10/09/2024 2:19 PM EDT) Ventricular Rate ECG 53 BPM GEMUSE Atrial Rate 53 BPM GEMUSE P-R Interval 172 ms GEMUSE QRS Duration 76 ms GEMUSE Q-T Interval 420 ms GEMUSE QTc 394 ms GEMUSE P Wave [place] 35 degrees GEMUSE R [place] 32 degrees GEMUSE T [place] 22 degrees GEMUSE ECG Interpretation Sinus bradycardia Otherwise normal ECG No previous ECGs available Confirmed by Joel GUTIERREZ JAMES ([id number]) on 10/09/2024 3:33:19 PM GEMUSE 10/09/2024 2:19 PM EDT 10/09/2024 3:33 PM EDT us Syed Gutierrez MD ECG ORDERABLES Final Result GEMUSE * Lipid panel (10/02/2024 8:50 AM EDT) [facility] Cholesterol Total 133 100 - 199 mg/dL [facility] 1 Triglycerides 67 0 - 149 mg/dL [facility] 1 HDL Cholesterol 66 >39 mg/dL [facility] 1 VLDL Cholesterol Calculated 14 5 - 40 mg/dL [facility] 1 LDL Chol Calc ([facility]) 53 0 - 99 mg/dL [facility] 1 Blood Venous blood specimen / Unknown 10/02/2024 8:50 AM EDT 10/02/2024 Narrative [facility] 1 - 10/03/2024 1:06 AM EDT Performed at: 01 - [facility] [address] [id number] Fish Bin Tender: Charis Watson MD, Phone: [phone] us Syed Gutierrez MD LAB BLOOD ORDERABLES Final Res ult [facility] 1 from Last 3 Months Insurance MEDICARE [employer] Care Teams Dust Operator Relationship Specialty Start Date End Date Dhiraj Cano MD [address] [place] [address] Dr Rosaura [place] PCP - General 07/01/12
--- NOTE | 2024-12-22 12:09 | A.OFFPC_ITS ---
Vital Signs 12/22/24 12:15 Height 4 ft 11 in Weight 144 lb BMI 29.1 BP 126/60 Blood Pressure Location Lt brachial Position Sitting Respiration 14 Pulse 54 Pulse Source Pulse Oximeter Temp 97.8 F Temp Source Oral Pulse Oximetry (%) 96 Oxygen Delivery Method Room Air Intake Visit Reasons: CPE with f/u labs and health maint Allergies No Known Allergies Allergy (Verified 10/13/24 11:53) Medication List - Last Reconciled 12/22/24 by Dhiraj Cano MD aspirin 81 mg PO DAILY 90 days atorvastatin 40 mg PO DAILY calcium carbonate (Calcium 600) 600 mg PO BID coenzyme Q10 300 mg PO DAILY empagliflozin (Jardiance) 5 mg (1/2 x 10 mg) PO DAILY 90 days ferrous sulfate (Iron (ferrous sulfate)) 65 mg PO DAILY gabapentin 100 mg PO BID PRN 30 days magnesium oxide 400 mg PO DAILY metoprolol tartrate 25 mg PO BID niacin ER 750 mg PO BID omega 7-htr-cjc-fish oil 1,200 (144-216) mg (Fish Oil) 1 cap PO BID polyethylene glycol 3350 (Miralax) 17 grams PO .every other day PRN triamcinolone acetonide 0.1% 1 appl topical BID 14 days Tobacco use date assessed: 12/22/24 Fall risk assessment: No Falls in past year Last assessed Fall Risk: 12/22/24 Dental Screening Dental Screen Date: 12/22/24 Did you have a dental visit in the last 12 months?: Yes Did you have a dental problem in the last 6 months where you did not have access to dental care?: No Was dental information given to patient?: Patient has dentist HPI CPE with f/u labs and health maint HPI Details 79 y/o female presents for a CPE with f/ u labs and health maint. Labs drawn 12/20/24. Reviewed labs with pt. Ongoing mild anemia. Creatinine level 2.00 mg/dL. A1c 5.7%. Triglycerides 59. TC 131. LDL 54. HDL 66. TSH 1.76. BP today 126/60, 54p. She is on metoprolol 25mg b.i.d. 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 Recommended her to continue Jardiance 5mg daily. PFSH Medical History No pertinent past medical history Surgical History (Updated 12/22/24 @ 12:13 by PAM Mares) History of cataract removal with insertion of prosthetic lens History of breast surgery History of surgical procedure on mouth Social History Household Members: Spouse Housing: House Alcohol intake: current Alcohol type: wine Patient Tobacco Use Status: Former Tobacco user e-Cigarette/Vaping Use: Never Used Second Hand Smoke Exposure: No service: No Current occupational status: retired Current occupational exposures/hazards: No Gender identity: Female Cognitive needs: No Hearing needs: No Vision needs: No (glasses) Questionnaire PHQ-9 Over the last 2 weeks, how often have you been bothered by any of the following problems? 1. Little interest or pleasure in doing things: not at all 2. Feeling down, depressed, or hopeless: not at all 3. Trouble falling or staying asleep, or sleeping too much: not at all 4. Feeling tired or having little energy: not at all 5. Poor appetite or overeating: not at all 6. Feeling bad about yourself - or that you are a failure or have let yourself or your family down: not at all 7. Trouble concentrating on things, such as reading the newspaper or watching television: not at all 8. Moving or speaking so slowly that other people could have noticed. Or the opposite - being so fidgety or restless that you have been moving around a lot more than usual: not at all 9. Thoughts that you would be better off or of hurting yourself in some way: not at all Total score: 0 Depression Screening Interpretation: Negative Depression Screening Done: Yes 05501 - PHQ-9 Billing: Yes Source: Developed by Drs. South Johnson, Alisson Fuentes, Yannick Morfin and colleagues, with an educational jef from [employer]. Thrive Questionnaire Date Thrive assessed: 12/22/24 I am a: Patient What is your living situation today?: I have a steady place to live Within the past 12 months, did the food you bought not last and you didn't have the money to get more?: Never true Within the past 12 months, did you worry whether your food would run out before you got money to buy more?: Never true Do you have trouble paying for medicines?: No Do you have trouble getting transportation to medical appointments?: No Do you have trouble paying your heating and electricity bill?: No Do you have trouble taking care of your child, family member or friend?: No Do you have trouble with day-to-day activities such as bathing, preparing meals, shopping, managing finances, etc.?: No Are you currently unemployed and looking for a job?: No Are you interested in more education?: No Please select the resources that you would like help with: None Currently or been in a relationship where the following occur: No concerns repo rted THRIVE Score: 0 AUDIT C Alcohol Use Questionnaire (AUDIT-C) 1. How often do you have a drink containing alcohol?: Monthly or less 2. How many drinks containing alcohol do you have on a typical day when you are drinking?: 1 or 2 3. How often do you have six or more drinks on one occasion?: Never Total Score: 1 Score Reviewed/Action Taken: Yes ANABELL-7 AMB Questionnaire ANABELL-7 Date ANABELL - 7 assessed: 12/22/24 Feeling nervous, anxious, or on edge: 0 = Not at all Not being able to stop or control worryin = Not at all Worrying too much about different things: 0 = Not at all Trouble relaxin = Not at all Being so restless that it is hard to sit still: 0 = Not at all Becoming easily annoyed or irritable: 0 = Not at all Feeling afraid as if something awful might happen: 0 = Not at all Total ANABELL-7 score (0-4 normal; 5-9 mild; 10-14 moderate; 15-21 severe): 0 Source: Developed by Drs. South Johnson, Alisson Fuentes, Yannick Morfin and colleagues, with an educational jef from [employer]. ANABELL-7 Assessment Billing ANABELL-7 Assessment Tool: ANABELL-7 Assessment 27293 Review of Systems Const Denies chills, Denies fatigue, Denies fever(s), Denies headache(s) and Denies weakness Eyes Denies change in vision ENT Denies dizziness, Denies headache(s), Denies hearing loss, Denies nasal congestion, Denies sinus pain, Denies sinus pressure and Denies sore throat Card Denies chest pain, Denies lightheadedness, Denies dyspnea and Denies other (palpitations) Resp Denies cough, Denies dyspnea and Denies wheezing GI Denies abdominal pain, Denies melena, Denies hematochezia, Denies change in bowel habits, Denies dyspepsia and Denies nausea Denies hematuria and Denies dysuria Musc Denies abnormal gait, Denies myalgias, Denies arthralgias, Denies numbness and Denies tingling Skin/Breast Denies rash, Denies unusual bruising and Denies wounds Neuro Denies abnormal gait, Denies dizziness, Denies headache(s), Denies memory loss, Denies numbness, Denies Sensory deficit (Neuro), Denies tingling and Denies weakness Psych Denies anxiety, Denies depression and Denies memory loss Endo Denies cold intolerance, Denies fatigue, Denies heat intolerance, Denies polydipsia and Denies polyuria Hero/Lymph Denies easy bleeding and Denies easy bruising Aller/Immun Denies wheezing Physical exam (Primary Care) Vital Signs: Last Vital Signs Temp 97.8 F 12/22/24 12:15 Pulse 54 12/22/24 12:15 Resp 14 12/22/24 12:15 BP 126/60 12/22/24 12:15 Pulse Ox 96 12/22/24 12:15 Oxygen Delivery Method Room Air 12/22/24 12:15 BMI result Body Mass Index 29.1 Tobacco/Smoking Status: Tobacco use Status Tobacco use date assessed 12/22/24 12/22/24 12:18 Patient Tobacco Use Status Former Tobacco user 12/22/24 12:18 e-Cigarette/Vaping Use Never Used 12/22/24 12:18 PHQ-9: PHQ-9 Score PHQ-9: Total score 0 12/22/24 14:00 Depression Screening Interpretation: Negative Thrive Assessment: Date of Thrive Assessment Date Thrive assessed 12/22/24 12/22/24 12:18 Currently or been in a relationship where the following occur: No concerns reported Const General: no acute distress, well developed, alert and awake Nutritional Appearance: well nourished Orientation/consciousness: patient oriented x3 HENMT Head: Yes normocephalic and Yes atraumatic Ears: hearing grossly normal bilaterally and TM's normal bilaterally General nose exam: Normal external nose present and Normal nares present Mouth: Normal oral and palatal mucosa present and moist mucous membranes Teeth and gingiva: dentition normal Throat: Yes posterior oropharynx normal Eyes General: appearance normal, both eyes and all related structures Pupils: Equal, round and reactive pupils present and Pupil accommodation reflex normal EOM: EOMs intact bilaterally Neck Neck: Yes normal visual inspection, Yes no lymphadenopathy and Yes trachea midline Thyroid: Thyroid normal Carotids: no bruits Lymphatic: no lymphadenopathy noted Chest Chest palpation & inspection: normal inspection of the chest Resp Effort & Inspection: normal respiratory effort Auscultation: clear to auscultation bilaterally Cardio Rate: regular rate Rhythm: regular rhythm Heart sounds: S1 normal heart sound present, S2 normal heart sound present, no gallops, no murmurs and no rubs Bruits: no abdominal aortic bruits and no carotid bruits GI Palpation (GI): No Abdominal aortic bruit present, Soft to palpation, nontender, No hepatosplenomegaly present and No Rebound tenderness present Auscultation: normal bowel sounds General: Yes no CVA tenderness Back/Spine/Pelvis Back: no CVA tenderness Cervical Spine: cervical ROM normal and No Cervical spine tenderness Thoracic/Lumbar Spine: thoraco-lumbar ROM normal, No pain with thoraco-lumbar ROM, No thoracic spinal tenderness and No lumbar spinal tenderness Skin Lesions: no lesions Rashes: no rashes Trauma: no lacerations or abrasions Wounds: no wounds Nails: normal Neuro General: patient oriented x3 Cranial nerves: Yes Equal, round and reactive pupils present Cognition (Neuro): normal cognition Gait exam (Neuro): Normal gait present Motor exam (neuro): 5/5 motor strength present throughout Sensory Exam: No Sensory deficit (Neuro) Deep tendon reflexes (DTR's): Right patellar reflex intensity grade: 2+ and Left patellar reflex intensity grade: 2+ Extrem General: Yes normal to inspection and No edema Psych Appearance: grossly normal Affect: normal affect Attitude: cooperative Thought process: Normal thought process present Coding Level of Care Code Est Pt Prev Care >65y(49193) Diagnoses Adult general medical exam Z00.00 Primary hypertension I10 Hypertension type: primary hypertension CAD (coronary artery disease) I25.10 Hyperlipidemia E78.5 Chronic renal failure N18.9 Screening for colon cancer Z12.11 Screening for osteoporosis Z13.820 Additional Codes ANABELL-7 Assessment Billing - ANABELL-7 Assessment Tool: ANABELL-7 Assessment 01151 ([id number]) PHQ-9 - 36977 - PHQ-9 Billing: Yes ([id number]) Assessment & Plan Assessment & Plan (1) Adult general medical exam: Code(s): Z00.00 - Encounter for general adult medical examination without abnormal findings Category: Medical Plan: 79-year-old?female?presents?for?complete?physical?exam Encouraged?healthy?diet?with?active?lifestyle?and?exercise (2) Hypertension: Code(s): I10 - Essential (primary) hypertension Category: Medical Qualifiers: Hypertension type: primary hypertension Qualified Code(s): I10 - Essential (primary) hypertension Plan: Blood?pressure?is?controlled.??Goal?is?less?than?130/80 Continue?current?medication (3) CAD (coronary artery disease): Code(s): I25.10 - Atherosclerotic heart disease of [place] coronary artery without angina pectoris Category: Medical Plan: Stable Followed?by??Ernestine Continue atorvastatin?and?aspirin Continue?metoprolol Continue?Jardiance (4) Hyperlipidemia: Code(s): E78.5 - Hyperlipidemia, unspecified Category: Medical Plan: As?above,?she?is?on?atorvastatin Lipids?are?well?controlled?and?LDL?is?at?goal?of?less?than?70 (5) Chronic renal failure: Code(s): N18.9 - Chronic kidney disease, unspecified Category: Medical Plan: Stable No?longer?on?lisinopril?but?she?is?on?Jardiance Follow-up?with?nephrology?as?recommended Hydrate?well?and?avoid?NSAIDs (6) Screening for colon cancer: Code(s): Z12.11 - Encounter for screening for malignant neoplasm of colon Category: Medical Plan: No?longer?getting?colonoscopies (7) Screening for osteoporosis: Code(s): Z13.820 - Encounter for screening for osteoporosis Category: Medical Plan: Recent?bone?density?test?showed?osteopenia Encouraged?good?sources?of?calcium?and?vitamin-D Encouraged?weight-bearing?exercise Orders: Orders MM tomosynthesis screening BI Today Z12.31 - Encounter for screening mammogram for malignant neoplasm of breast
[2024-12-22 12:15] VITALS: BP 126/60; PULSE 54; RESP 14; TEMP 36.6; O2SAT 96; BMI 29.1
== END 2024-12-22 14:33 | disposition home or self-care (01) ==
LOC: HO.HMCFM 11:37
PROVIDERS: PCP Family Medicine; Visit Provider Family Medicine
DX: Z00.00 Encounter for general adult medical examination without abnormal findings (principal); I12.9 Hypertensive chronic kidney disease with stage 1 through stage 4 chronic kidney disease, or unspecified chronic kidney disease; I25.10 Atherosclerotic heart disease of native coronary artery without angina pectoris; E78.5 Hyperlipidemia, unspecified; N18.9 Chronic kidney disease, unspecified; Z12.11 Encounter for screening for malignant neoplasm of colon; Z13.820 Encounter for screening for osteoporosis

== ENCOUNTER → 2024-12-22 11:36 | Outpatient (BNVA) | payer MEDICARE, OTHER, SELFPAY | PROVIDERS: PCP Family Medicine; Visit Provider Family Medicine | DX: Z00.00 Encounter for general adult medical examination without abnormal findings (principal); I25.10 Atherosclerotic heart disease of native coronary artery without angina pectoris; E78.5 Hyperlipidemia, unspecified; I12.9 Hypertensive chronic kidney disease with stage 1 through stage 4 chronic kidney disease, or unspecified chronic kidney disease; N18.9 Chronic kidney disease, unspecified | CPT/HCPCS: 96127; 99397 ==

== ENCOUNTER 2025-01-18 09:37 | Outpatient (AMB) | payer MEDICARE, OTHER, SELFPAY ==
--- NOTE | 2025-01-18 09:39 | A.OFFPC_ITS ---
Vital Signs 01/18/25 09:44 Height 4 ft 11 in Weight 141 lb BMI 28.5 BP 150/68 H Blood Pressure Location Lt brachial Position Sitting Respiration 14 Pulse 63 Pulse Source Pulse Oximeter Temp 977 F H Temp Source Temporal Artery Scan Pulse Oximetry (%) 98 Oxygen Delivery Method Room Air Intake Visit Reasons: siatic on right side (leg) Intake Note: Eileen presents in the office today for right sided sciatic pain. Allergies No Known Allergies Allergy (Verified 01/18/25 09:43) Medication List - Last Reconciled 01/18/25 by Dhiraj Cano MD aspirin 81 mg PO DAILY 90 days atorvastatin 40 mg PO DAILY calcium carbonate (Calcium 600) 600 mg PO BID coenzyme Q10 300 mg PO DAILY cyclobenzaprine 5 mg PO BID PRN 10 days diclofenac sodium 1% (Arthritis Pain (diclofenac)) 4 grams topical BID 30 days empagliflozin (Jardiance) 5 mg (1/2 x 10 mg) PO DAILY 90 days ferrous sulfate (Iron (ferrous sulfate)) 65 mg PO DAILY gabapentin 100 mg PO BID PRN 30 days magnesium oxide 400 mg PO DAILY metoprolol tartrate 25 mg PO BID niacin ER 750 mg PO BID omega 9-veo-oio-fish oil 1,200 (144-216) mg (Fish Oil) 1 cap PO BID polyethylene glycol 3350 (Miralax) 17 grams PO .every other day PRN triamcinolone acetonide 0.1% 1 appl topical BID 14 days Tobacco use date assessed: 01/18/25 Dental Screening Dental Screen Date: 01/18/25 Did you have a dental visit in the last 12 months?: Yes Did you have a dental problem in the last 6 months where you did not have access to dental care?: No Was dental information given to patient?: Patient has dentist HPI siatic on right side (leg) HPI Details 79 y/o female presents today with compla ints of sciatica, R side and R leg pain. She describes pain around R leg and feels it radiates upwards to her back. Pain is worse at night. Has been taking tylenol for relief. Pt notes bone density test is next year. [facility] Medical History (Updated 01/18/25 @ 09:55 by Bijan Mosqueda) No pertinent past medical history Surgical History (Updated 12/22/24 @ 12:13 by Jose Villavicencio [facility]) History of cataract removal with insertion of prosthetic lens History of breast surgery History of surgical procedure on mouth Social History (Updated 01/18/25 @ 09:44 by Liliana Mejias MA) Household Members: Spouse Housing: House Alcohol intake: current Alcohol type: wine Patient Tobacco Use Status: Former Tobacco user e-Cigarette/Vaping Use: Never Used Second Hand Smoke Exposure: No Use of substances other than those prescribed or required for medical reasons: No service: No Current occupational status: retired Current occupational exposures/hazards: No Gender identity: Female Cognitive needs: No Hearing needs: No Vision needs: No (glasses) Questionnaire Thrive Questionnaire Date Thrive assessed: 08/29/24 I am a: Patient What is your living situation today?: I have a steady place to live Within the past 12 months, did the food you bought not last and you didn't have the money to get more?: Never true Within the past 12 months, did you worry whether your food would run out before you got money to buy more?: Never true Do you have trouble paying for medicines?: No Do you have trouble getting transportation to medical appointments?: No Do you have trouble paying your heating and electricity bill?: No Do you have trouble taking care of your child, family member or friend?: No Do you have trouble with day-to-day activities such as bathing, preparing meals, shopping, managing finances, etc.?: No Are you currently unemployed and looking for a job?: No Are you interested in more education?: No Please select the resources that you would like help with: None Currently or been in a relationship where the following occur: No concerns reported THRIVE Score: 0 ANABELL-7 AMB Questionnaire ANABELL-7 Date ANABELL - 7 assessed: 12/22/24 Source: Developed by Drs. South Johnson, Alisson Fuentes, Yannick Morfin and colleagues, with an educational jef from [employer]. Review of Systems Const Denies chills, Denies fatigue, Denies fever(s), Denies headache(s) and Denies weakness ENT Denies dizziness and Denies headache(s) Card Denies dyspnea Resp Denies cough, Denies dyspnea, Denies wheezing and Denies other (shortness of breath) Musc Denies numbness and Denies tingling Neuro Denies dizziness, Denies headache(s), Denies numbness, Denies tingling and Denies weakness Psych Denies anxiety and Denies depression Endo Denies fatigue Aller/Immun Denies wheezing Physical exam (Primary Care) Vital Signs: Last Vital Signs Temp 977 F H 01/18/25 09:44 Pulse 63 01/18/25 09:44 Resp 14 01/18/25 09:44 BP 150/68 H 01/18/25 09:44 Pulse Ox 98 01/18/25 09:44 Oxygen Delivery Method Room Air 01/18/25 09:44 BMI result Body Mass Index 28.5 Tobacco/Smoking Status: Tobacco use Status Tobacco use date assessed 01/18/25 01/18/25 09:49 Patient Tobacco Use Status Former Tobacco user 01/18/25 09:44 e-Cigarette/Vaping Use Never Used 01/18/25 09:44 Thrive Assessment: Date of Thrive Assessment Date Thrive assessed 08/29/24 01/18/25 09:40 Currently or been in a relationship where the following occur: No concerns reported Const General: well developed; No acute distress Nutritional Appearance: well nourished Orientation/consciousness: patient oriented x3 HENMT Head: Yes normocephalic and Yes atraumatic Eyes General: appearance normal, both eyes and all related structures Pupils: Equal, round and reactive pupils present EOM: EOMs intact bilaterally Resp Effort & Inspection: normal respiratory effort Neuro General: patient oriented x3 and gait normal Cranial nerves: Yes Equal, round and reactive pupils present Psych Affect: normal affect Coding Level of Care Code Est Pt Level 4 (96553) Diagnoses Sciatica of right side M54.31 Right leg pain M79.604 Screening for osteoporosis Z13.820 Breast cancer screening by mammogram Z12.31 Assessment & Plan Assessment & Plan (1) Sciatica of right side: Code(s): M54.31 - Sciatica, right side Category: Medical Plan: Patient has right lateral calf/peroneal pain with radiation from gluteus in sciatic notch region. Likely referred sciatica pain Recommend ice/heat Discussed physical therapy and she would like to try gentle stretching on her own 1st. Can not tolerate oral NSAIDs due to CRF but will use topical diclofenac gel. She has been using Tylenol and will continue this; 500 to 700 mg t.i.d. Will give her a short course of cyclobenzaprine - Risks/benefits discussed If not improving she will let me know. Would check imaging, start PT and consider referral (2) Right leg pain: Code(s): M79.604 - Pain in right leg Category: Medical Plan: As above (3) Screening for osteoporosis: Code(s): Z13.820 - Encounter for screening for osteoporosis Category: Medical Plan: Due for bone density next year Osteopenia (4) Breast cancer screening by mammogram: Code(s): Z12.31 - Encounter for screening mammogram for malignant neoplasm of breast Category: Medical Plan: Gets mammograms with her psychiatric security nurse at [place] Will request report Medications: New diclofenac sodium 1% (Arthritis Pain (diclofenac)) apply to single knee, ankle, foot; for foot includes sole/toes/top of foot 4 grams topical BID 200 grams 2RF 30 days cyclobenzaprine 5 mg PO BID PRN 20 tabs 0RF muscle spasm 10 days
[2025-01-18 09:44] VITALS: BP 150/68; PULSE 63; RESP 14; TEMP 525; TEMP 977; O2SAT 98; BMI 28.5
--- OUTSIDE RECORDS SUMMARY | 2025-01-18 09:54 | XMS_ITS | Clinical Summary ---
Author Organization [facility] [employer] [employer] Address [address] [place] [address] Phone Care Team Providers Care School Age Program Associate Name Role Phone Dhiraj Cano MD Primary [...] 1 (one) time each day. Active omega 7-mzd-puu-fish oil (Fish OiL) 360-1,200 mg capsule,delayed release(DR/EC) [...] mg tabletIndicatio ns:Atherosclero tic heart disease of [place] coronary artery without angina pectoris TAKE 1 TABLET BY MOUTH TWICE A DAY 180 tablet 3 11/22/2024 Active Social History Tobacco Use Types Packs/Day Years [...] season) 2024 04/28/2021, 09/05/2020, 08/15/2020 Influenza Vaccine (#1) 2025 , 04/02/2020, 05/03/2019, Additional history exists DTaP,Tdap,and Td [...] Procedure Name Priority Date/Time Associated Diagnosis Comments LIPID PANEL Routine 10/02/2024 8:50 AM EDT Mixed hyperlipidemia from Last 3 Months or Most Recently Relevant to Health Maintenance Results * Lipid panel (10/02/2024 8:50 AM EDT) Pathologist [facility] Cholesterol Total 133 100 - 199 mg/dL [...] AM EDT Performed at: 01 - [facility] [address] [id number] Parking Enforcement Officer: Charis Watson MD, Phone: [phone] us Syed Gutierrez MD LAB BLOOD ORDERABLES Final Res ult [facility] 1 from Last 3 Months or Most Recently Relevant to Health Maintenance [place] [phone] MEDICARE MEDICAL [place] Care Teams School Age Program Associate Relationship Specialty Start Date End Date Dhiraj Cano MD [address] [place] [address] Dr Rosaura [place] PCP - General 07/01/12
--- OUTSIDE RECORDS SUMMARY | 2025-01-18 09:54 | XMS_ITS | Clinical Summary ---
Author Organization [facility] Address [address] [facility] [address] [place] [address] Phone Care Team Providers Care Surgeon/President Name Role Phone Dhiraj Cano MD Primary [...] mouth 2 (two) times a day Active [place]-3 Fatty Acids (Fish Oil Burp-Less) 1200 MG [...] Ye ars (1 of 2 - PCV) 1964 Influenza Vaccine (#1) 2025 Hepatitis B Vaccine Aged Out No longe r eligible based on patient's age to complete this topic Insurance Medicare [place] Medicare [place] Care Teams Surgeon/President Relationship Specialty Start Date End Date Dhiraj Cano MD [address] [place] [address] [place] [id number] PCP - General 07/15/20
== END 2025-01-18 10:26 | disposition home or self-care (01) ==
LOC: HO.HMCFM 09:37
PROVIDERS: PCP Family Medicine; Visit Provider Family Medicine
DX: M54.31 Sciatica, right side (principal); M79.604 Pain in right leg; Z13.820 Encounter for screening for osteoporosis; Z12.31 Encounter for screening mammogram for malignant neoplasm of breast

== ENCOUNTER → 2025-01-18 09:37 | Outpatient (BNVA) | payer MEDICARE, OTHER, SELFPAY | PROVIDERS: PCP Family Medicine; Visit Provider Family Medicine | DX: M54.31 Sciatica, right side (principal); M79.604 Pain in right leg | CPT/HCPCS: 99212 ==

== ENCOUNTER 2025-01-30 11:24 | Outpatient (REF) | payer MEDICARE, OTHER, SELFPAY ==
--- NOTE | ~2025-01-30 | XR_ITS ---
EXAMINATION: XR LUMBAR SPINE 2-3 VIEWS HISTORY: M54.9 - Dorsalgia, unspecified COMPARISON: There are no prior studies for comparison. FINDINGS: AP, lateral, and coned down views of the lumbar spine are submitted. Osseous mineralization is normal. Five nonrib-bearing lumbar vertebral bodies are identified, maintaining normal height and alignment without evidence of fracture or spondylolisthesis. There is moderate to severe degenerative disc disease with disc space narrowing and osteophyte formation. 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 There is calcification of the abdominal aorta. XR/XR lumbar spine 2-3V IMPRESSION: Moderate to severe degenerative disc disease. Electronically signed by: [place] Quevedo MD 01/30/2025 11:52 AM EDT
--- OUTSIDE RECORDS SUMMARY | 2025-01-30 12:38 | XMS_ITS | Clinical Summary ---
Author Organization [facility] Address [address] [facility] [place] [address] Phone Care Team Providers Care Senior Radiation Therapist Name Role Phone Dhiraj Cano MD Primary [...] 1 (one) time each day. Active omega 8-toc-fym-fish oil (Fish OiL) 360-1,200 mg capsule,delayed release(DR/EC) [...] mg tabletIndicatio ns:Atherosclero tic heart disease of [place] coronary artery without angina pectoris TAKE 1 [...] Patients (1 - 1-dose 75+ series) 2019 Falls Risk Assessment 06/13/2022 Medicare Annual Wellness Visit 06/13/2022 Osteoporosis Screening (Bone Density Screening) 06/13/2022 Social Influencers of Health Screening 06/13/2022 Hypertension/CHF/CAD Annual BMP Blood Test 06/14/2022 COVID-19 Vaccine ( season) 2024 04/28/2021, 09/05/2020, 08/15/2020 Depression Screening 07/05/2024 Influenza Vaccine (#1) 2025 , 04/02/2020, 05/03/2019, [...] Lipid panel (10/02/2024 8:50 AM EDT) Pathologist [facility] Cholesterol Total 133 100 - 199 mg/dL [...] AM EDT Performed at: 01 - [facility] [address] [id number] Civil Technician: Charis Watson MD, Phone: [phone] us Syed Gutierrez MD LAB BLOOD ORDERABLES Final Res ult [facility] 1 from Last 3 Months or Most Recently Relevant to Health Maintenance [place] [phone] MEDICARE MEDICAL [place] Care Teams Senior Radiation Therapist Relationship Specialty Start Date End Date Dhiraj Cano MD [address] [place] [address] Dr Rosaura [place] PCP - General 07/01/12
--- OUTSIDE RECORDS SUMMARY | 2025-01-30 12:39 | XMS_ITS | Clinical Summary ---
Author Organization [facility] Address [address] [facility] [address] [place] [address] Phone Care Team Providers Care Transit Worker Name Role Phone Dhiraj Cano MD Primary [...] mouth 2 (two) times a day Active [place]-3 Fatty Acids (Fish Oil Burp-Less) 1200 MG [...] age to complete this topic Insurance Medicare [place] Medicare [place] Care Teams Transit Worker Relationship Specialty Start Date End Date Dhiraj Cano MD [address] [place] [address] [place] [id number] PCP - General 07/15/20
== END 2025-01-30 11:25 | disposition home or self-care (01) ==
LOC: HO.XRAY 11:24
PROVIDERS: PCP Family Medicine; Visit Provider Family Medicine
DX: M54.31 Sciatica, right side (principal); M54.9 Dorsalgia, unspecified
CPT/HCPCS: 72100

== ENCOUNTER → 2025-01-30 11:29 | Outpatient (BNV) | payer MEDICARE, OTHER, SELFPAY | PROVIDERS: PCP Family Medicine; Visit Provider Radiology Diagnostic Radiology | DX: M51.360 Other intervertebral disc degeneration, lumbar region with discogenic back pain only (principal) | CPT/HCPCS: 72100 ==

== ENCOUNTER 2025-02-22 13:29 | Outpatient (REF) | payer MEDICARE, OTHER, SELFPAY ==
--- OUTSIDE RECORDS SUMMARY | 2025-02-22 13:41 | XMS_ITS | Clinical Summary ---
Author Organization [facility] Address [address] [facility] [address] 0 [place] [address] Phone Care Team Providers Care Regional Medical Director Name Role Phone Dhiraj Cano MD Primary [...] mouth 2 (two) times a day Active [place]-3 Fatty Acids (Fish Oil Burp-Less) 1200 MG [...] age to complete this topic Insurance Medicare Check Medicare Check Care Teams Regional Medical Director Relationship Specialty Start Date End Date Dhiraj Cano MD [address] [place] [address] [place] [id number] PCP - General 07/15/20
--- OUTSIDE RECORDS SUMMARY | 2025-02-22 13:41 | XMS_ITS | Clinical Summary ---
Author Organization [facility] Address [address] [place] [address] Phone Care Team Providers Care Senior C Web Developer Name Role Phone Dhiraj Cano MD Primary Care Provider [phone] Allergies No known active allergies Medications niacin [...] 1 (one) time each day. Active omega 7-rny-mku-fish oil (Fish OiL) 360-1,200 mg capsule,delayed release(DR/EC) [...] mg tabletIndicatio ns:Atherosclero tic heart disease of [place] coronary artery without angina pectoris TAKE 1 [...] Lipid panel (10/02/2024 8:50 AM EDT) Pathologist [facility] Cholesterol Total 133 100 - 199 mg/dL [...] AM EDT Performed at: 01 - [facility] [address] [id number] Forging Roll Operator: Charis Watson MD, Phone: [phone] us Syed Gutierrez MD LAB BLOOD ORDERABLES Final Res ult [facility] 1 from Last 3 Months or Most Recently Relevant to Health Maintenance [place] [phone] MEDICARE MEDICAL [place] Care Teams Senior C Web Developer Relationship Specialty Start Date End Date Dhiraj Cano MD [address] [place] [address] Dr Rosaura [place] PCP - General 07/01/12
[2025-02-22 14:29] LABS: MANUAL DIFF FLAG NO
[2025-02-22 14:36] LABS: Hematocrit 32.3 % (37.0-47.0); Hemoglobin 10.9 g/dl (12.0-16.0); Imm Gran Abs Auto 0.02 X10*3/uL (0.00-0.03); Imm Gran Pct Auto 0.3 % (0.0-0.4); Lymphocytes Absolute Auto 1.9 X10*3/uL (1.2-4.9); Mean Corpuscular HGB Conc 33.7 g/dl (31.0-35.0); Mean Corpuscular Hemoglobin 30.8 pg (27.0-33.0); Mean Corpuscular Volume 91.2 fL (80.0-98.0); NRBC Abs Auto 0.000 X10*3/uL (0.0-0.012); NRBC Pct Auto 0.0 /100WBC (0.0-0.2); Platelet Count 179 X10*3/uL (160-400); Red Blood Count 3.54 X10*6/uL (4.20-5.50); White Blood Count 6.5 X10*3/uL (4.8-10.8)
[2025-02-22 15:06] LABS: Alanine Aminotransferase 23 U/L (0-31); Albumin Level 4.6 g/dL (3.5-5.0); Alkaline Phosphatase 60 U/L (39-117); Anion Gap 11 (12-20); Aspartate Amino Transferase 28 U/L (5-31); Blood Urea Nitrogen 39 mg/dL (9-16); Calcium 10.3 mg/dL (8.4-10.2); Carbon Dioxide 30 mmol/L (22-29); Chloride 107 mmol/L (96-108); Estimated Glomerular Filt Rate 24; Potassium 4.6 mmol/L (3.3-5.1); Sodium 143 mmol/L (135-145); Total Protein 6.8 g/dL (6.5-8.0)
== END 2025-02-22 13:30 | disposition home or self-care (01) ==
LOC: HO.WFDLDS 13:29
PROVIDERS: Family Medicine; Visit Provider Internal Medicine Nephrology
DX: Z00.00 Encounter for general adult medical examination without abnormal findings (principal); D69.6 Thrombocytopenia, unspecified; N18.31 Chronic kidney disease, stage 3a
CPT/HCPCS: 36415; 80053; 85025

== ENCOUNTER 2025-02-28 13:24 | Outpatient (AMB) | payer MEDICARE, OTHER, SELFPAY ==
--- NOTE | 2025-02-28 13:27 | HO.NEPHOV_ITS ---
Vital Signs 02/28/25 13:37 Height 4 ft 11 in Weight 141 lb 2 oz BMI 28.5 BP 114/70 Blood Pressure Location Rt brachial Position Sitting Pulse 58 Pulse Source Pulse Oximeter Pulse Oximetry (%) 98 Oxygen Delivery Method Room Air Intake Visit Reasons: 4 MO FU-[facility] Department Store General Manager Required: No Accompanied by: Self / Same As Patient Allergies No Known Allergies Allergy (Verified 02/28/25 13:37) HPI Comments Details: Eileen was seen in follow-up of her chronic kidney disease. She is known to have coronary artery disease, TIA and hypertension but no congestive heart failure. Recently her serum creatinine has gone up and her ISMA-inhibitor dosage has been adjusted. Her renal ultrasound in the past showed a renal cyst per never had Doppler of renal arteries. She has history of trace blood in the urine and has seen Urology. She denies chest pain, shortness of breath, p roximal nocturnal dyspnea, orthopnea, pedal edema or urinary symptoms. She avoids nonsteroidal anti-inflammatory medications. She tries to maintain good hydration and consume a low-sodium diet. She has seen Hematology. Her abdominal USS was unremarkable. She had an ECHO which is OK as per the patient. She feels well [facility] Medical History (Updated 01/18/25 @ 09:55 by Bijan Mosqueda) No pertinent past medical history Surgical History (Updated 12/22/24 @ 12:13 by Jose Villavicencio [facility]) History of cataract removal with insertion of prosthetic lens History of breast surgery History of surgical procedure on mouth Social History (Updated 01/18/25 @ 09:44 by Liliana Mejias MA) Household Members: Spouse Housing: House Alcohol intake: current Alcohol type: wine Patient Tobacco Use Status: Former Tobacco user e-Cigarette/Vaping Use: Never Used Second Hand Smoke Exposure: No service: No Current occupational status: retired Current occupational exposures/hazards: No Gender identity: Female Cognitive needs: No Hearing needs: No Vision needs: No (glasses) Review of Systems Const All systems reviewed & are unremarkable except as noted in HPI and below Physical Exam Const General: comfortable and no acute distress Orientation/consciousness: patient oriented x3 HEENT Head: Yes normocephalic Mouth: Normal oral and palatal mucosa present Eyes EOM: EOMs intact bilaterally Neck Neck: Yes supple Resp Auscultation: clear to auscultation bilaterally Cardio Jugular venous distension: no JVD Rate: regular rate GI Palpation (GI): Soft to palpation Auscultation: normal bowel sounds General: Yes no CVA tenderness Back/Spine/Pelvis Back: no CVA tenderness Skin General skin exam: no rashes or lesions noted Neuro General: patient oriented x3 and moves all extremities Extrem General: Yes no pedal edema Results Reviewed Nephrology Results: Hgb, (12.0-16.0) 10.9 g/dl L 02/22/25 WBC, (4.8-10.8) 6.5 X10*3/uL 02/22/25 Plt Count, (160-400) 179 X10*3/uL Δ 02/22/25 Sodium, (135-145) 143 mmol/L 02/22/25 Potassium, (3.3-5.1) 4.6 mmol/L 02/22/25 Chloride, (96-108) 107 mmol/L 02/22/25 Carbon Dioxide, (22-29) 30 mmol/L H 02/22/25 BUN, (9-16) 39 mg/dL H 02/22/25 Creatinine, (0.5-1.4) 2.00 mg/dL H 02/22/25 Calcium, (8.4-10.2) 10.3 mg/dL H Δ 02/22/25 Urine Protein, (Neg-Trace) Trace mg/dL 12/20/24 Urine Creatinine 97.16 mg/dL 12/20/24 Renal US 01/28/24 Assessment & Plan Assessment & Plan (1) Hypertension: Code(s): I10 - Essential (primary) hypertension Category: Medical Qualifiers: Hypertension type: primary hypertension Qualified Code(s): I10 - Essential (primary) hypertension (2) CKD (chronic kidney disease) stage 3, GFR 30-59 ml/min: Code(s): N18.30 - Chronic kidney disease, stage 3 unspecified Category: Medical Qualifiers: Chronic kidney disease stage 3 subtype: stage 3a (GFR 45-59) Qualified Code(s): N18.31 - Chronic kidney disease, stage 3a Plan Eileen has chronic kidney disease due to vascular disease. 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 Her serum creatinine is stable after I stopped her ACEI. Her blood pressure is at goal. She has no orthostasis. She should continue Jardiance 5 mg daily. She avoids nonsteroidal anti-inflammatories. Her urine output is good. I did not make any medication changes at this visit. Follow-up lab data ordered. Answered all questions. Follow-up given Orders: Orders Blood Urea Nitrogen 4 Months I10 - Essential (primary) hypertension, N18.31 - Chronic kidney disease, stage 3a Creatinine 4 Months I10 - Essential (primary) hypertension, N18.31 - Chronic kidney disease, stage 3a Electrolytes 4 Months I10 - Essential (primary) hypertension, N18.31 - Chronic kidney disease, stage 3a Coding Level of Care Code Est Pt Level 4 (28191) Diagnoses Primary hypertension I10 Hypertension type: primary hypertension Stage 3a chronic kidney disease N18.31 Chronic kidney disease stage 3 subtype: stage 3a (GFR 45-59)
[2025-02-28 13:37] VITALS: BP 114/70; PULSE 58; O2SAT 98; BMI 28.5
--- OUTSIDE RECORDS SUMMARY | 2025-02-28 14:15 | XMS_ITS | Clinical Summary ---
Author Organization [facility] Address [address] [facility] [address] [place] [address] Phone Care Team Providers Care Van Helper Name Role Phone Dhiraj Cano MD [...] mouth 2 (two) times a day Active [place]-3 Fatty Acids (Fish Oil Burp-Less) 1200 MG [...] age to complete this topic Insurance Medicare [place] Medicare [place] Care Teams Van Helper Relationship Specialty Start Date End Date Dhiraj Cano MD [address] [place] [address] [place] [id number] PCP - General 07/15/20
--- OUTSIDE RECORDS SUMMARY | 2025-02-28 14:15 | XMS_ITS | Clinical Summary ---
Author Organization [facility] Address [address] [facility] [place] [address] Phone Care Team Providers Care Trade Clerk Name Role Phone Dhiraj Cano MD Primary [...] 1 (one) time each day. Active omega 8-dkk-scg-fish oil (Fish OiL) 360-1,200 mg capsule,delayed release(DR/EC) [...] mg tabletIndicatio ns:Atherosclero tic heart disease of [place] coronary artery without angina pectoris TAKE 1 [...] Lipid panel (10/02/2024 8:50 AM EDT) Pathologist [facility] Cholesterol Total 133 100 - 199 mg/dL [...] AM EDT Performed at: 01 - [facility] [address] [id number] Repairer General: Charis Watson MD, Phone: [phone] us Syed Gutierrez MD LAB BLOOD ORDERABLES Final Res ult [facility] 1 from Last 3 Months or Most Recently Relevant to Health Maintenance [place] [phone] MEDICARE MEDICAL [place] Care Teams Trade Clerk Relationship Specialty Start Date End Date Dhiraj Cano MD [address] [place] [address] Dr Rosaura [place] PCP - General 07/01/12
== END 2025-02-28 14:19 | disposition home or self-care (01) ==
LOC: HO.HKA 13:25
PROVIDERS: PCP Family Medicine; Visit Provider Internal Medicine Nephrology
DX: I10 Essential (primary) hypertension (principal); N18.31 Chronic kidney disease, stage 3a
CPT/HCPCS: 99214

== ENCOUNTER → 2025-02-28 13:24 | Outpatient (BNVA) | payer MEDICARE, OTHER, SELFPAY | PROVIDERS: PCP Family Medicine; Visit Provider Internal Medicine Nephrology | DX: I12.9 Hypertensive chronic kidney disease with stage 1 through stage 4 chronic kidney disease, or unspecified chronic kidney disease (principal); N18.31 Chronic kidney disease, stage 3a | CPT/HCPCS: 99212 ==

== ENCOUNTER 2025-06-12 14:15 | Outpatient (REF) | payer MEDICARE, OTHER, SELFPAY ==
[2025-06-12 14:39] LABS: MANUAL DIFF FLAG NO
[2025-06-12 15:12] LABS: Hematocrit 34.5 % (37.0-47.0); Hemoglobin 11.2 g/dl (12.0-16.0); Imm Gran Abs Auto 0.02 X10*3/uL (0.00-0.03); Imm Gran Pct Auto 0.3 % (0.0-0.4); Lymphocytes Absolute Auto 1.8 X10*3/uL (1.2-4.9); Mean Corpuscular HGB Conc 32.5 g/dl (31.0-35.0); Mean Corpuscular Hemoglobin 30.4 pg (27.0-33.0); Mean Corpuscular Volume 93.5 fL (80.0-98.0); NRBC Abs Auto 0.000 X10*3/uL (0.0-0.012); NRBC Pct Auto 0.0 /100WBC (0.0-0.2); Platelet Count 150 X10*3/uL (160-400); Red Blood Count 3.69 X10*6/uL (4.20-5.50); White Blood Count 6.8 X10*3/uL (4.8-10.8)
[2025-06-12 15:31] LABS: Appearance Urine Cloudy; Glucose Urine UA 500 mg/dL (Negative); PH 6.5 (5.0-9.0); Specific Gravity - Urine 1.015 (1.005-1.025); UMIC TRIGGER UACC YES
[2025-06-12 15:33] LABS: Alanine Aminotransferase 15 U/L (0-31); Albumin Level 4.7 g/dL (3.5-5.0); Alkaline Phosphatase 66 U/L (39-117); Anion Gap 13 (12-20); Aspartate Amino Transferase 26 U/L (5-31); Blood Urea Nitrogen 37 mg/dL (9-16); Calcium 10.3 mg/dL (8.4-10.2); Carbon Dioxide 27 mmol/L (22-29); Chloride 108 mmol/L (96-108); Estimated Glomerular Filt Rate 21; Potassium 4.7 mmol/L (3.3-5.1); Sodium 143 mmol/L (135-145); Total Protein 6.9 g/dL (6.5-8.0)
[2025-06-12 16:02] LABS: Microalbum/Creatinine Ratio Ur 67.5 ug/mg cr (<30)
--- OUTSIDE RECORDS SUMMARY | 2025-06-12 20:17 | XMS_ITS | Clinical Summary ---
Author Organization [facility] Address [address] [facility] [place], [place] [address] Phone Care Team Providers Care Pasteurizing Machine Operator Name Role Phone Dhiraj Cano MD [...] 1 (one) time each day. Active omega 2-vma-bju-fish oil (Fish OiL) 360-1,200 mg capsule,delayed release(DR/EC) [...] ORAL) Take by mouth if needed. Active metoprolol tartrate (LOPRESSOR) 25 mg tabletIndicatio ns:Atherosclero tic heart disease of [place] coronary artery without angina pectoris TAKE 1 TABLET BY MOUTH TWICE A DAY 180 tablet 3 5 Active atorvastatin (LIPITOR) 40 mg tablet Take 1 tablet (40 mg total) by mouth 1 (one) time each day. 90 tablet 1 5 Active atorvastatin (LIPITOR) 40 mg tablet TAKE 1 TABLET BY MOUTH EVERY DAY 90 tablet 1 5 05/17/20 25 Discontinu ed(Reorder ) Social History Tobacco Use Types Packs/Day Years Used Date Smoking Tobacco: Former Cigarettes 1.5 Q uit: 05/05/1974 Smokeless Tobacco: Never Alcohol [...] 06/13/2022 Hypertension/CHF/CAD Annual BMP Blood Test 06/14/2022 Depression Screening 07/05/2024 COVID-19 Vaccine ( season) 2025 04/28/2021, 09/05/2020, 08/15/2020 Influenza Vaccine (#1) 2025 [...] mg/dL [facility] 1 LDL Chol Calc ([facility]) 53 0 - 99 mg/dL [facility] 1 Blood Venous blood specimen / Unknown 10/02/2024 8:50 AM EDT 10/02/2024 Narrative [facility] 1 - 10/03/2024 1:06 AM EDT Performed at: [address] [id number] Hydraulic Barker Operator: Charis Watson MD, Phone: [phone] us Syed Gutierrez MD LAB BLOOD ORDERABLES Final Res ult [facility] 1 from Last 3 Months or Most Recently Relevant to Health Maintenance Insurance MEDICARE MEDICAL [place] Care Teams Pasteurizing Machine Operator Relationship Specialty Start Date End Date Dhiraj Cano MD [address] [place] [address] Dr Rosaura [place] PCP - General 07/01/12
--- OUTSIDE RECORDS SUMMARY | 2025-06-12 20:17 | XMS_ITS | Clinical Summary ---
Author Organization [facility] Address [address] [facility] [address] 0 [place] [address] Phone Care Team Providers Care Sales Specialist Name Role Phone Dhiraj Cano MD Primary [...] mouth 2 (two) times a day Active [place]-3 Fatty Acids (Fish Oil Burp-Less) 1200 MG [...] age to complete this topic Insurance Medicare [place] Medicare [place] Care Teams Sales Specialist Relationship Specialty Start Date End Date Dhiraj Cano MD [address] [place] [address] [place] [id number] PCP - General 07/15/20
== END 2025-06-12 14:16 | disposition home or self-care (01) ==
LOC: HO.LAB 14:15
PROVIDERS: Absent Provider Internal Medicine Nephrology; PCP Family Medicine; Visit Provider Family Medicine
DX: Z00.00 Encounter for general adult medical examination without abnormal findings (principal); I12.9 Hypertensive chronic kidney disease with stage 1 through stage 4 chronic kidney disease, or unspecified chronic kidney disease; N18.31 Chronic kidney disease, stage 3a; D63.1 Anemia in chronic kidney disease
CPT/HCPCS: 36415; 80053; 81001; 82043; 82570; 85025

== ENCOUNTER 2025-06-18 11:34 | Outpatient (AMB) | payer MEDICARE, OTHER, SELFPAY ==
[2025-06-18 11:45] VITALS: BP 124/68; PULSE 55; O2SAT 98; BMI 28.1
--- NOTE | 2025-06-18 11:45 | MHC.PC.OV ---
Vital Signs 06/18/25 11:45 Height 4 ft 11 in Weight 139 lb 6 oz BMI 28.1 BP 124/68 Blood Pressure Location Rt brachial Position Sitting Pulse 55 Pulse Source Pulse Oximeter Pulse Oximetry (%) 98 Oxygen Delivery Method Room Air Intake Visit Reasons: f/u chronic conditions Allergies No Known Allergies Allergy (Verified 06/18/25 11:47) Medication List - Last Reconciled 06/18/25 by Dhiraj Cano MD aspirin 81 mg PO DAILY 90 days atorvastatin 40 mg PO DAILY calcium carbonate (Calcium 600) 600 mg PO BID coenzyme Q10 300 mg PO DAILY cyclobenzaprine 5 mg PO BID PRN 10 days diclofenac sodium 1% (Arthritis Pain (diclofenac)) 4 grams topical BID 30 days empagliflozin (Jardiance) 5 mg (1/2 x 10 mg) PO DAILY ferrous sulfate (Iron (ferrous sulfate)) 65 mg PO 3XW magnesium oxide 400 mg PO DAILY metoprolol tartrate 25 mg PO BID niacin ER 750 mg PO BID omega 9-wqw-tvo-fish oil 1,200 (144-216) mg (Fish Oil) 1 cap PO BID polyethylene glycol 3350 (Miralax) 17 grams PO .every other day PRN triamcinolone acetonide 0.1% 1 appl topical BID 14 days Tobacco use date assessed: 06/18/25 Fall risk assessment: No Falls in past year Last assessed Fall Risk: 06/18/25 Dental Screening Dental Screen Date: 06/18/25 Did you have a dental visit in the last 12 months?: Yes Did you have a dental problem in the last 6 months where you did not have access to dental care?: No Was dental information given to patient?: Patient has dentist HPI f/u chronic conditions HPI Details 80 y/o female presents to f/u chronic conditions. Had been following up with [facility] for thrombocytopenia. She has mild normocytic anemia. Iron stores were adequate. Serum immunofixation normal. They recommend f/u p.r.n. CKD and is followed by technical internship. Blood pressure today 124/68, 55p. She is on metoprolol 25mg b.i.d. Reports urinary frequency. R sided sciatica which pt notes has improved. [facility] Medical History No pertinent past medical history Surgical History History of cataract removal with insertion of prosthetic lens History of breast surgery History of surgical procedure on mouth Social History Household Members: Spouse Housing: House Alcohol intake: current Alcohol type: wine Patient Tobacco Use Status: Former Tobacco user e-Cigarette/Vaping Use: Never Used Second Hand Smoke Exposure: No service: No Current occupational status: retired Current occupational exposures/hazards: No Gender identity: Female Cognitive needs: No Hearing needs: No Vision needs: No (glasses) Questionnaire PHQ-9 Over the last 2 weeks, how often have you been bothered by any of the following problems? 1. Little interest or pleasure in doing things: not at all 2. Feeling down, depressed, or hopeless: not at all 3. Trouble falling or staying asleep, or sleeping too much: not at all 4. Feeling tired or having little energy: not at all 5. Poor appetite or overeating: not at all 6. Feeling bad about yourself - or that you are a failure or have let yourself or your family down: not at all 7. Trouble concentrating on things, such as reading the newspaper or watching television: not at all 8. Moving or speaking so slowly that other people could have noticed. Or the opposite - being so fidgety or restless that you have been moving around a lot more than usual: not at all 9. Thoughts that you would be better off or of hurting yourself in some way: not at all Total score: 0 Depression Screening Interpretation: Negative Depression Screening Done: Yes Source: Developed by Drs. South Johnson, Alisson Fuentes, Yannick Morfin and colleagues, with an educational jef from [employer]. Thrive Questionnaire Date Thrive assessed: 08/29/24 I am a: Patient What is your living situation today?: I have a steady place to live Within the past 12 months, did the food you bought not last and you didn't have the money to get more?: Never true Within the past 12 months, did you worry whether your food would run out before you got money to buy more?: Never true Do you have trouble paying for medicines?: No Do you have trouble getting transportation to medical appointments?: No Do you have trouble paying your heating and electricity bill?: No Do you have trouble taking care of your child, family member or friend?: No Do you have trouble with day-to-day activities such as bathing, preparing meals, shopping, managing finances, etc.?: No Are you currently unemployed and looking for a job?: No Are you interested in more education?: No Please select the resources that you would like help with: None Currently or been in a relationship where the following occur: No concerns reported THRIVE Score: 0 AUDIT C Alcohol Use Questionnaire (AUDIT-C) 1. How often do you have a drink containing alcohol?: Monthly or less 2. How many drinks containing alcohol do you have on a typical day when you are drinking?: 1 or 2 3. How often do you have six or more drinks on one occasion?: Never Total Score: 1 ANABELL-7 AMB Questionnaire ANABELL-7 Date ANABELL - 7 assessed: 12/22/24 Feeling nervous, anxious, or on edge: 0 = Not at all Not being able to stop or control worryin = Not at all Worrying too much about different things: 0 = Not at all Trouble relaxin = Not at all Being so restless that it is hard to sit still: 0 = Not at all Becoming easily annoyed or irritable: 0 = Not at all Feeling afraid as if something awful might happen: 0 = Not at all Total ANABELL-7 score (0-4 normal; 5-9 mild; 10-14 moderate; 15-21 severe): 0 Source: Developed by Drs. South Johnson, Alisson Fuentes, Yannick Morfin and colleagues, with an educational jef from [employer]. Review of Systems Const Denies chills, Denies fatigue, Denies fever(s), Denies headache(s) and Denies weakness ENT Denies dizziness and Denies headache(s) Card Denies dyspnea Resp Denies cough, Denies dyspnea, Denies wheezing and Denies other (shortness of breath) Musc Denies numbness and Denies tingling Neuro Denies dizziness, Denies headache(s), Denies numbness, Denies tingling and Denies weakness Psych Denies anxiety and Denies depression Endo Denies fatigue Aller/Immun Denies wheezing Physical exam (Primary Care) Vital Signs: Last Vital Signs Pulse 55 06/18/25 11:45 BP 124/68 06/18/25 11:45 Pulse Ox 98 06/18/25 11:45 Oxygen Delivery Method Room Air 06/18/25 11:45 BMI result Body Mass Index 28.1 Tobacco/Smoking Status: Tobacco use Status Tobacco use date assessed 06/18/25 06/18/25 11:50 Patient Tobacco Use Status Former Tobacco user 06/18/25 11:50 e-Cigarette/Vaping Use Never Used 06/18/25 11:50 PHQ-9: PHQ-9 Score PHQ-9: Total score 0 06/18/25 11:50 Depression Screening Interpretation: Negative Thrive Assessment: Date of Thrive Assessment Date Thrive assessed 08/29/24 06/18/25 11:50 Currently or been in a relationship where the following occur: No concerns reported Const General: well developed; No acute distress Nutritional Appearance: well nourished Orientation/consciousness: patient oriented x3 HENMT Head: Yes normocephalic and Yes atraumatic Eyes General: appearance normal, both eyes and all related structures Pupils: Equal, round and reactive pupils present EOM: EOMs intact bilaterally Resp Effort & Inspection: normal respiratory effort Neuro General: patient oriented x3 and gait normal Cranial nerves: Yes Equal, round and reactive pupils present Psych Affect: normal affect Coding Level of Care Code Est Pt Level 4 (55083) Diagnoses Essential hypertension I10 CAD (coronary artery disease) I25.10 Thrombocytopenia D69.6 Stage 3a chronic kidney disease N18.31 Chronic kidney disease stage 3 subtype: stage 3a (GFR 45-59) Sciatica of right side M54.31 Assessment & Plan Assessment & Plan (1) Essential hypertension: Code(s): I10 - Essential (primary) hypertension Category: Medical Plan: Blood pressure is controlled. Goal is less than 130/80 Continue current medication regimen (2) CAD (coronary artery disease): Code(s): I25.10 - Atherosclerotic heart disease of [place] coronary artery without angina pectoris Category: Medical Plan: Followed by Dr. Sinha's office Stable Continue atorvastatin?and?aspirin Continue?metoprolol Continue?Jardiance (3) Thrombocytopenia: Code(s): D69.6 - Thrombocytopenia, unspecified Category: Medical Plan: Improved - likely reactive secondary to increased iron and increased H&H Was seen by Hematology-Oncology. No further need to follow-up with Hematology-Oncology unless there is a problem. Will continue to monitor (4) CKD (chronic kidney disease) stage 3, GFR 30-59 ml/min: Code(s): N18.30 - Chronic kidney disease, stage 3 unspecified Category: Medical Qualifiers: Chronic kidney disease stage 3 subtype: stage 3a (GFR 45-59) Qualified Code(s): N18.31 - Chronic kidney disease, stage 3a Plan: Some worsening of creatinine and GFR She notes that she has not been hydrating as well while they were moving Continue Jardiance. She has an appointment with Nephrology soon and Dr. Ruiz may increase her Jardiance Will continue to follow She is avoiding NSAIDs and blood pressure is well controlled (5) Sciatica of right side: Code(s): M54.31 - Sciatica, right side Category: Medical Plan Right-sided sciatica which is much improved. She has been performing exercises she learned from her daughter who teaches Pilates/yoga. Continue exercises and topical NSAIDs She will let me know if this worsens or is not improving Patient had a mammogram this past fall. This was done at [facility] and I do not have the report. Requesting report Orders: Orders Comprehensive Met. Panel Today N18.31 - Chronic kidney disease, stage 3a UA CC w/rflx Micro + Cult Today N18.31 - Chronic kidney disease, stage 3a, Z00.00 - Encounter for general adult medical examination without abnormal findings Complete Blood Count Auto Diff Today D69.6 - Thrombocytopenia, unspecified, Z00.00 - Encounter for general adult medical examination without abnormal findings Microalbumin, Random (w Creat) Today I10 - Essential (primary) hypertension, N18.31 - Chronic kidney disease, stage 3a
== END 2025-06-18 12:25 | disposition home or self-care (01) ==
LOC: HO.HMCFM 11:35
PROVIDERS: PCP Family Medicine; Visit Provider Family Medicine
DX: I10 Essential (primary) hypertension (principal); I25.10 Atherosclerotic heart disease of native coronary artery without angina pectoris; D69.6 Thrombocytopenia, unspecified; N18.31 Chronic kidney disease, stage 3a; M54.31 Sciatica, right side

== ENCOUNTER → 2025-06-18 11:34 | Outpatient (BNVA) | payer MEDICARE, OTHER, SELFPAY | PROVIDERS: PCP Family Medicine; Visit Provider Family Medicine | DX: I10 Essential (primary) hypertension (principal); I25.10 Atherosclerotic heart disease of native coronary artery without angina pectoris; D69.6 Thrombocytopenia, unspecified; N18.31 Chronic kidney disease, stage 3a; M54.31 Sciatica, right side; Z13.31 Encounter for screening for depression | CPT/HCPCS: 96127; 99212 ==

== ENCOUNTER 2025-06-20 13:43 | Outpatient (AMB) | payer MEDICARE, OTHER, SELFPAY ==
--- NOTE | 2025-06-20 14:03 | HO.NEPHOV ---
Vital Signs 06/20/25 14:12 Height 4 ft 11 in Weight 140 lb 2 oz BMI 28.3 BP 120/60 Blood Pressure Location Rt brachial Position Sitting Pulse 61 Pulse Source Pulse Oximeter Pulse Oximetry (%) 97 Oxygen Delivery Method Room Air Intake Visit Reasons: 4mon f/u w/labs-Conf Grit Blaster Required: No Accompanied by: Self / Same As Patient Allergies No Known Allergies Allergy (Verified 06/20/25 14:12) HPI Comments Details: Eileen was seen in follow-up of her chronic kidney disease. She is known to have coronary artery disease, TIA and hypertension but no congestive heart failure. Recently her serum creatinine has gone up and her ISMA-inhibitor dosage has been adjusted. Her renal ultrasound in the past showed a renal cyst per never had Doppler of renal arteries. She has history of trace blood in the urine and has seen Urology. She denies chest pain, shortness of breath, proximal nocturnal dyspnea, orthopnea, pedal edema or urinary symptoms. She avoids nonsteroidal anti-inflammatory medications. She tries to maintain good hydration and consume a low-sodium diet. She has seen Hematology. Her abdominal USS was unremarkable. Her last ECHO was OK as per the patient. She feels well [facility] Medical History No pertinent past medical history Surgical History History of cataract removal with insertion of prosthetic lens History of breast surgery History of surgical procedure on mouth Social History Household Members: Spouse Housing: House Alcohol intake: current Alcohol type: wine Patient Tobacco Use Status: Former Tobacco user e-Cigarette/Vaping Use: Never Used Second Hand Smoke Exposure: No service: No Current occupational status: retired Current occupational exposures/hazards: No Gender identity: Female Cognitive needs: No Hearing needs: No Vision needs: No (glasses) Review of Systems Const All systems reviewed & are unremarkable except as noted in HPI and below Physical Exam Const General: comfortable and no acute distress Orientation/consciousness: patient oriented x3 HEENT Head: Yes normocephalic Mouth: Normal oral and palatal mucosa present Eyes EOM: EOMs intact bilaterally Neck Neck: Yes supple Resp Auscultation: clear to auscultation bilaterally Cardio Jugular venous distension: no JVD Rate: regular rate GI Palpation (GI): Soft to palpation Auscultation: normal bowel sounds General: Yes no CVA tenderness Back/Spine/Pelvis Back: no CVA tenderness Skin General skin exam: no rashes or lesions noted Neuro General: patient oriented x3 and moves all extremities Extrem General: Yes no pedal edema Results Reviewed Nephrology Results: Hgb, (12.0-16.0) 11.2 g/dl L 06/12/25 WBC, (4.8-10.8) 6.8 X10*3/uL 06/12/25 Plt Count, (160-400) 150 X10*3/uL L 06/12/25 Sodium, (135-145) 143 mmol/L 06/12/25 Potassium, (3.3-5.1) 4.7 mmol/L 06/12/25 Chloride, (96-108) 108 mmol/L 06/12/25 Carbon Dioxide, (22-29) 27 mmol/L 06/12/25 BUN, (9-16) 37 mg/dL H 06/12/25 Creatinine, (0.5-1.4) 2.22 mg/dL H 06/12/25 Calcium, (8.4-10.2) 10.3 mg/dL H 06/12/25 Urine Protein, (Neg-Trace) Trace mg/dL 06/12/25 Urine Creatinine 69.60 mg/dL 06/12/25 Renal US 01/28/24 Assessment & Plan Assessment & Plan (1) Hypertension: Code(s): I10 - Essential (primary) hypertension Category: Medical Qualifiers: Hypertension type: primary hypertension Qualified Code(s): I10 - Essential (primary) hypertension (2) CKD (chronic kidney disease) stage 3, GFR 30-59 ml/min: Code(s): N18.30 - Chronic kidney disease, stage 3 unspecified Category: Medical Qualifiers: Chronic kidney disease stage 3 subtype: stage 3a (GFR 45-59) Qualified Code(s): N18.31 - Chronic kidney disease, stage 3a Abe Arellano has chronic kidney disease due to vascular disease. 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 Her serum creatinine is stable after I stopped her ACEI. Her blood pressure is at goal. She has no orthostasis. She should continue Jardiance 5 mg daily. She avoids nonsteroidal anti-inflammatories. Her urine output is good. I did not make any medication changes at this visit. Follow-up lab data ordered. Answered all questions. Follow-up given Orders: Orders Parathyroid Hormone Intact 4 Months I10 - Essential (primary) hypertension, N18.31 - Chronic kidney disease, stage 3a Electrolytes 4 Months I10 - Essential (primary) hypertension, N18.31 - Chronic kidney disease, stage 3a Calcium 4 Months I10 - Essential (primary) hypertension, N18.31 - Chronic kidney disease, stage 3a Blood Urea Nitrogen 4 Months I10 - Essential (primary) hypertension, N18.31 - Chronic kidney disease, stage 3a Creatinine 4 Months I10 - Essential (primary) hypertension, N18.31 - Chronic kidney disease, stage 3a Vitamin D 25-OH Total 4 Months I10 - Essential (primary) hypertension, N18.31 - Chronic kidney disease, stage 3a Phosphorus 4 Months I10 - Essential (primary) hypertension, N18.31 - Chronic kidney disease, stage 3a Immunofixation Pnl, Serum 4 Months I10 - Essential (primary) hypertension, N18.31 - Chronic kidney disease, stage 3a Medications: Changed From empagliflozin (Jardiance) 5 mg (1/2 x 10 mg) PO DAILY 30 tabs 5RF To empagliflozin (Jardiance) 5 mg (1/2 x 10 mg) PO DAILY 45 tabs 5RF 90 days Coding Level of Care Code Est Pt Level 4 (14917) Diagnoses Primary hypertension I10 Hypertension type: primary hypertension Stage 3a chronic kidney disease N18.31 Chronic kidney disease stage 3 subtype: stage 3a (GFR 45-59)
[2025-06-20 14:12] VITALS: BP 120/60; PULSE 61; O2SAT 97; BMI 28.3
--- OUTSIDE RECORDS SUMMARY | 2025-06-20 18:13 | XMS_ITS | Clinical Summary ---
Author Organization [facility] Address [address] [place], [place] [address] Phone Care Team Providers Care Vegetable Canner Name Role Phone Dhiraj Cano MD Primary Care Provider [phone] Allergies No known active allergies Medications niacin [...] 1 (one) time each day. Active omega 9-sxk-muh-fish oil (Fish OiL) 360-1,200 mg capsule,delayed release(DR/EC) [...] mg tabletIndicatio ns:Atherosclero tic heart disease of [place] coronary artery without angina pectoris TAKE 1 TABLET BY MOUTH TWICE A DAY 180 tablet 3 11/22/2024 Active atorvastatin (LIPITOR) 40 mg tablet Take 1 tablet (40 mg total) by mouth 1 (one) time each day. 90 tablet 1 05/17/2025 Active Social History Tobacco Use Types Packs/Day [...] 1:06 AM EDT Performed at: 01 - [facility] [id number] Pelt Inspector: Charis Watson MD, Phone: [phone] us Syed Gutierrez MD LAB BLOOD ORDERABLES Final Res ult [facility] 1 from Last 3 Months or Most Recently Relevant to Health Maintenance Insurance [employer] [place] Care Teams Vegetable Canner Relationship Specialty Start Date End Date Dhiraj Cano MD [address] [place] [address] Dr Rosaura MA PCP - General 07/01/12
== END 2025-06-20 14:46 | disposition home or self-care (01) ==
LOC: HO.HKA 13:44
PROVIDERS: PCP Family Medicine; Visit Provider Internal Medicine Nephrology
DX: I10 Essential (primary) hypertension (principal); N18.31 Chronic kidney disease, stage 3a
CPT/HCPCS: 99214

== ENCOUNTER → 2025-06-20 13:43 | Outpatient (BNVA) | payer MEDICARE, OTHER, SELFPAY | PROVIDERS: PCP Family Medicine; Visit Provider Internal Medicine Nephrology | DX: I10 Essential (primary) hypertension (principal); N18.31 Chronic kidney disease, stage 3a; I73.9 Peripheral vascular disease, unspecified | CPT/HCPCS: 99212 ==